=== PATIENT | male | born 1945 | race Caucasian/White ===

== ENCOUNTER → 2016-04-28 | Outpatient (CLI) | payer OTHER, MEDICARE ==
[~2016-04-28] MED LIST: /PANT40TA; MIRALEX; PAIN325T
[2016-04-28 12:39] LABS: BASO % 0.8 % (0.0-1.0); EOS # 0.1 K/mm3 (0.0-0.50); EOS % 2.2 % (0.0-3.0); LARGE UNSTAINED CELL # 0.1 K/mm3 (0.0-0.4); LARGE UNSTAINED CELL % 2.6 % (0.0-4.0); LYMPH # 1.4 K/mm3 (1.5-4.5); LYMPH % 26.1 % (24.0-44.0); MEAN CORPUSCULAR HEMOGLOBIN 30.8 pg (27.0-33.0); MEAN CORPUSCULAR VOLUME 87.9 fl (80.0-96.0); MONO # 0.3 K/mm3 (0.0-0.8); MONO % 5.3 % (0.0-5.0); NEUTROPHILS # 3.4 K/mm3 (1.8-7.7); NEUTROPHILS % 62.9 % (36.0-66.0); PLATELET COUNT, AUTOMATED 169 k/mm3 (150-450); RED CELL DISTRIBUTION WIDTH 13.2 % (11.5-14.5); WHITE BLOOD COUNT 5.4 K/mm3 (4.0-10.0)
[2016-04-28 13:17] LABS: ALBUMIN 3.8 GM/DL (3.2-5.2); ALBUMIN/GLOBULIN RATIO 1.23 (1.00-1.93); ALKALINE PHOSPHATASE 78 U/L (45-117); ALT/SGPT 17 U/L (12-78); ANION GAP 9 MEQ/L (8-16); AST/SGOT 14 U/L (15-37); BILIRUBIN,TOTAL 0.7 MG/DL (0.2-1.0); BLOOD UREA NITROGEN 12 MG/DL (7-18); CALCIUM LEVEL 9.2 MG/DL (8.8-10.2); CARBON DIOXIDE LEVEL 29 MEQ/L (21-32); CHLORIDE LEVEL 106 MEQ/L (98-107); CHOLESTEROL LEVEL 210 MG/DL (<200); CREATININE FOR GFR 1.15 MG/DL (0.70-1.30); GLOMERULAR FILTRATION RATE > 60.0 (>49); GLUCOSE, FASTING 103 MG/DL (80-110); POTASSIUM SERUM 4.4 MEQ/L (3.5-5.1); SODIUM LEVEL 144 MEQ/L (136-145); TOTAL PROTEIN 6.9 GM/DL (6.4-8.2); TRIGLYCERIDES LEVEL 104 MG/DL (<150)
== END ==
LOC: M WUC 08:25
PROVIDERS: ATTEND Physician Assistant Medical
DX: E78.4 Other hyperlipidemia (principal); R73.01 Impaired fasting glucose

== ENCOUNTER → 2016-06-16 | Outpatient (CLI) | payer OTHER, MEDICARE ==
[~2016-06-16] MED LIST changes: +CITA20TA4 PO; +GABA-283 PO; +LIDOCAINE 2% INJ 100 MG/5 ML SDV (FOR ANES.) As Ordered ONE; +NAME28CA PO; +NS 1,000 ML IV SCH; +PROPOFOL 500 MG/50 ML VIAL As Ordered ONE
--- NOTE | 2016-06-16 10:22 | ROOR ---
Patient Name: Yoni Zamudio Procedure Date: 06/16/2016 10:06 AM Date of : 1945 Age: 70 Room: [facility] Gender: Male Note Status: Finalized Procedure: Upper GI endoscopy Indications: Dysphagia, Abdominal bloating, Eructation Providers: Forrest Kyle MD Referring MD: LALO Ospina Requesting Provider: Medicines: Monitored Anesthesia Care Complications: No immediate complications. Procedure: Pre-Anesthesia Assessment: - The heart rate, respiratory rate, oxygen saturations, blood pressure, adequacy of pulmonary ventilation, and response to care were monitored throughout the procedure. The Endoscope was introduced through the mouth, and advanced to the second part of duodenum. The upper GI endoscopy was accomplished without difficulty. The patient tolerated the procedure well. Findings: The Z-line was regular and was found 40 cm from the incisors. A small hiatal hernia was present. A large amount of food (residue) was found on the greater curvature of the stomach. The exam was otherwise without abnormality. The exam of the duodenum was otherwise normal. Impression: - Z-line regular, 40 cm from the incisors. - Small hiatal hernia. - A large amount of food (residue) in the stomach. - The examination was otherwise normal. - No specimens collected. - The examination was otherwise normal. Recommendation: - Patient has a contact number available for emergencies. The signs and symptoms of potential delayed complications were discussed with the patient. Return to normal activities tomorrow. Written discharge instructions were provided to the patient. - Low fiber diet. - Discharge patient to home. - Follow an antireflux regimen. - Continue present medications. - Return to referring physician. - The findings and recommendations were discussed with the patient's family. Forrest Kyle MD Forrest Kyle MD 06/16/2016 10:21:52 AM This report has been signed electronically. Number of Addenda: 0 Note Initiated On: 06/16/2016 10:06 AM Estimated Blood Loss: Estimated blood loss: none.
[2016-06-16 10:52] VITALS: BP 117/78
== END | disposition home or self-care (01) ==
LOC: M OPP 09:27
PROVIDERS: ATTEND Internal Medicine Gastroenterology
DX: R13.10 Dysphagia, unspecified (principal); K44.9 Diaphragmatic hernia without obstruction or gangrene; R14.0 Abdominal distension (gaseous); R14.2 Eructation; R12 Heartburn; K21.9 Gastro-esophageal reflux disease without esophagitis; Z79.899 Other long term (current) drug therapy

== ENCOUNTER → 2016-08-31 | Day surgery (SDC) | payer OTHER ==
[~2016-08-31] VITALS: Ht 182.9 cm; Wt 90.7 kg
[~2016-08-31] MED LIST changes: +ACETAMINOPHEN 325 MG TAB PO PRN; +AcetaZOLAMIDE 500 MG ER CAP PO ONE; +BSS with VANC/TOB/EPI for EYE CASES IR ONE; +CYCLOPENTOLATE 2% OPHTH SOLN 2ML BTL As Ordered ONE; +CYCLOPENTOLATE 2% OPHTH SOLN 2ML BTL OS ONE; +D5W/0.2% SODIUM CHLORIDE 1,000 ML ONE; +D5W/0.2% SODIUM CHLORIDE 250 ML IV ONE; +GABA-282 PO; +HEALON DUET (HEALON 10MG/ML 0.55ML & HEALON ENDOCOAT 30MG/ML 0.85ML) As Ordered ONE; +KETOROLAC 0.5% OPHTH SOLN OS ONE; +LIDOCAINE 1% SDV 5 ML VIAL As Ordered ONE; -LIDOCAINE 2% INJ 100 MG/5 ML SDV (FOR ANES.) As Ordered ONE; +LIDOCAINE 4% INJ 5 ML AMP OU ONE; +LORA1TAB12 PO; +MEMA1TAB2 PO; +MIDAZOLAM INJ 2 MG/2 ML VIAL (J2250) As Ordered ONE; +MOXIFLOXACIN IN BSS 0.25MG/0.25ML INTRACAMERAL INJ (OR EYE ONLY)(J2280) As Ordered ONE; -NS 1,000 ML IV SCH; +OFLOXACIN 0.3 % (OCUFLOX) OPTH SOL 5ML As Ordered ONE; +OFLOXACIN 0.3 % (OCUFLOX) OPTH SOL 5ML OS ONE; +PANT40TA2 PO; +PHENYLEPHRINE 2.5% OPHTH SOL 2ML As Ordered ONE; +PHENYLEPHRINE 2.5% OPHTH SOL 2ML OS ONE; +POVIDONE-IODINE 5% OPHTH PREP SOL 30ML As Ordered ONE; +PROPARACAINE 0.5% OPHTH SOL 15ML OS PRN; -PROPOFOL 500 MG/50 ML VIAL As Ordered ONE; +TRIAMCINOLONE PRES FR 40 MG/ML 1ML(TRIESENCE)(OR EYE ONLY)(J3300 PER 1MG) As Ordered ONE; +TRIMETHOBENZAMIDE 300 MG CAP PO PRN; +TROPICAMIDE 1% OPHTH SOLN 2ML As Ordered ONE; +TROPICAMIDE 1% OPHTH SOLN 2ML OS ONE; +fentaNYL 100 MCG/2 ML INJECTION (J3010) As Ordered ONE
[2016-08-31 13:25] VITALS: BP 133/82
== END | disposition home or self-care (01) ==
LOC: M SDC 09:58
PROVIDERS: ATTEND Ophthalmology
DX: H26.9 Unspecified cataract (principal); K21.9 Gastro-esophageal reflux disease without esophagitis; F41.9 Anxiety disorder, unspecified; Z79.899 Other long term (current) drug therapy
CPT/HCPCS: 66984; 67515; J2250; J2280; J3010; J3300; V2632

== ENCOUNTER → 2016-09-20 | Day surgery (SDC) | payer OTHER ==
[~2016-09-20] VITALS: Ht 182.9 cm; Wt 91.0 kg
[~2016-09-20] MED LIST changes: -CYCLOPENTOLATE 2% OPHTH SOLN 2ML BTL As Ordered ONE; +CYCLOPENTOLATE 2% OPHTH SOLN 2ML BTL OD ONE; -CYCLOPENTOLATE 2% OPHTH SOLN 2ML BTL OS ONE; -D5W/0.2% SODIUM CHLORIDE 1,000 ML ONE; -D5W/0.2% SODIUM CHLORIDE 250 ML IV ONE; +KETOROLAC 0.5% OPHTH SOLN OD ONE; -KETOROLAC 0.5% OPHTH SOLN OS ONE; +LR 500 ML IV ONE; -OFLOXACIN 0.3 % (OCUFLOX) OPTH SOL 5ML As Ordered ONE; +OFLOXACIN 0.3 % (OCUFLOX) OPTH SOL 5ML OD ONE; -OFLOXACIN 0.3 % (OCUFLOX) OPTH SOL 5ML OS ONE; -PHENYLEPHRINE 2.5% OPHTH SOL 2ML As Ordered ONE; +PHENYLEPHRINE 2.5% OPHTH SOL 2ML OD ONE; -PHENYLEPHRINE 2.5% OPHTH SOL 2ML OS ONE; +PROPARACAINE 0.5% OPHTH SOL 15ML OD PRN; -PROPARACAINE 0.5% OPHTH SOL 15ML OS PRN; -TROPICAMIDE 1% OPHTH SOLN 2ML As Ordered ONE; +TROPICAMIDE 1% OPHTH SOLN 2ML OD ONE; -TROPICAMIDE 1% OPHTH SOLN 2ML OS ONE
[2016-09-20 11:07] VITALS: BP 130/80
== END | disposition home or self-care (01) ==
LOC: M SDC 08:03
PROVIDERS: ATTEND Ophthalmology
DX: H25.9 Unspecified age-related cataract (principal); F41.9 Anxiety disorder, unspecified; F03.90 Unspecified dementia, unspecified severity, without behavioral disturbance, psychotic disturbance, mood disturbance, and anxiety; K21.9 Gastro-esophageal reflux disease without esophagitis; F32.9 Major depressive disorder, single episode, unspecified; Z79.899 Other long term (current) drug therapy
CPT/HCPCS: 66984; J2250; J2280; J3010; J3300; V2632

== ENCOUNTER → 2016-10-28 | Outpatient (REF) | payer OTHER ==
[~2016-10-28] MED LIST changes: -ACETAMINOPHEN 325 MG TAB PO PRN; -AcetaZOLAMIDE 500 MG ER CAP PO ONE; -BSS with VANC/TOB/EPI for EYE CASES IR ONE; -CYCLOPENTOLATE 2% OPHTH SOLN 2ML BTL OD ONE; -HEALON DUET (HEALON 10MG/ML 0.55ML & HEALON ENDOCOAT 30MG/ML 0.85ML) As Ordered ONE; -KETOROLAC 0.5% OPHTH SOLN OD ONE; -LIDOCAINE 1% SDV 5 ML VIAL As Ordered ONE; -LIDOCAINE 4% INJ 5 ML AMP OU ONE; -LR 500 ML IV ONE; +METO5TAB2; -MIDAZOLAM INJ 2 MG/2 ML VIAL (J2250) As Ordered ONE; -MOXIFLOXACIN IN BSS 0.25MG/0.25ML INTRACAMERAL INJ (OR EYE ONLY)(J2280) As Ordered ONE; +NAME28CA; -OFLOXACIN 0.3 % (OCUFLOX) OPTH SOL 5ML OD ONE; -PHENYLEPHRINE 2.5% OPHTH SOL 2ML OD ONE; -POVIDONE-IODINE 5% OPHTH PREP SOL 30ML As Ordered ONE; -PROPARACAINE 0.5% OPHTH SOL 15ML OD PRN; -TRIAMCINOLONE PRES FR 40 MG/ML 1ML(TRIESENCE)(OR EYE ONLY)(J3300 PER 1MG) As Ordered ONE; -TRIMETHOBENZAMIDE 300 MG CAP PO PRN; -TROPICAMIDE 1% OPHTH SOLN 2ML OD ONE; -fentaNYL 100 MCG/2 ML INJECTION (J3010) As Ordered ONE
== END ==
LOC: M SFHCADAM 11:03
PROVIDERS: ATTEND Physician Assistant Medical
DX: R19.5 Other fecal abnormalities (principal)

== ENCOUNTER 2017-01-22 12:56 | Emergency (ER) | payer OTHER ==
[~2017-01-22 12:56] MED LIST changes: -METO5TAB2; -NAME28CA
[2017-01-22] MEDS ORDERED: METO5TAB2 (13:19)
[2017-01-22] MEDS ORDERED: NAME28CA (13:19)
[2017-01-22 15:53] LABS: BASO % 0.4 % (0.0-1.0); EOS # 0.1 10^3/uL (0.0-0.50); EOS % 0.7 % (0.0-3.0); IMMATURE GRANULOCYTE % 0.3 % (0-0); LYMPH # 1.3 10^3/uL (1.5-4.5); LYMPH % 19.7 % (24.0-44.0); MEAN CORPUSCULAR HEMOGLOBIN 31.1 pg (27.0-33.0); MEAN CORPUSCULAR HGB CONC 35.6 g/dl (32.0-36.5); MEAN CORPUSCULAR VOLUME 87.2 fl (80.0-96.0); MONO # 0.4 10^3/uL (0.0-0.8); MONO % 5.2 % (0.0-5.0); NEUTROPHILS # 4.9 10^3/uL (1.8-7.7); NEUTROPHILS % 73.7 % (36.0-66.0); PLATELET COUNT, AUTOMATED 170 10^3/uL (150-450); RED CELL DISTRIBUTION WIDTH 13.4 % (11.5-14.5); WHITE BLOOD COUNT 6.7 10^3/uL (4.0-10.0)
[2017-01-22 16:05] LABS: METHADONE URINE NEGATIVE (NEGATIVE)
[2017-01-22 16:06] LABS: ALBUMIN 3.7 GM/DL (3.2-5.2); ALBUMIN/GLOBULIN RATIO 1.32 (1.00-1.93); ALKALINE PHOSPHATASE 56 U/L (45-117); ALT/SGPT 20 U/L (12-78); ANION GAP 7 MEQ/L (8-16); AST/SGOT 15 U/L (15-37); BILIRUBIN,DIRECT 0.2 MG/DL (0.0-0.2); BILIRUBIN,TOTAL 0.7 MG/DL (0.2-1.0); BLOOD UREA NITROGEN 15 MG/DL (7-18); CARBON DIOXIDE LEVEL 27 MEQ/L (21-32); CHLORIDE LEVEL 108 MEQ/L (98-107); CREATININE FOR GFR 1.03 MG/DL (0.70-1.30); GLOMERULAR FILTRATION RATE > 60.0 (>49); GLUCOSE, FASTING 151 MG/DL (80-110); POTASSIUM SERUM 3.4 MEQ/L (3.5-5.1); SODIUM LEVEL 142 MEQ/L (136-145); TOTAL PROTEIN 6.5 GM/DL (6.4-8.2)
[2017-01-22 16:08] LABS: CALCIUM OXALATE CRYSTALS SMALL
[2017-01-22 16:39] VITALS: BP 185/108
--- NOTE | 2017-01-23 08:07 | ECGEPIP ---
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
== END 2017-01-22 16:43 | disposition home or self-care (01) ==
LOC: M ED 12:56
DX: F03.90 Unspecified dementia, unspecified severity, without behavioral disturbance, psychotic disturbance, mood disturbance, and anxiety (principal); R94.31 Abnormal electrocardiogram [ECG] [EKG]; F41.9 Anxiety disorder, unspecified; F32.9 Major depressive disorder, single episode, unspecified; R51 Headache; Z79.899 Other long term (current) drug therapy
CPT/HCPCS: 80048; 80076; 80307; 81001; 85025; 93005; 93041; 99285; G0480

== ENCOUNTER → 2017-02-28 | Outpatient (CLI) | payer OTHER ==
[~2017-02-28] MED LIST changes: +METO5TAB2; +NAME28CA
--- NOTE | 2017-02-28 16:14 | REP ---
Clinical: Pain and paresthesia. Technique: Internal rotation, external rotation, and Y view of the right and left shoulder. Findings: Symmetric bilateral moderate arthritic changes at the acromioclavicular joints noted. Findings include cortical irregularity and chondrocalcinosis at the acromioclavicular joints. The glenohumeral joints appear relatively stable and normal for age. The subacromial space is normal bilaterally. Findings to suggest old left mid clavicular shaft fracture. 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 Old left clavicle fracture. Signed by Tobias Alva MD 02/28/2017 04:05 P
--- NOTE | 2017-02-28 16:17 | REP ---
Clinical: Pain and paresthesia. Technique: AP, lateral, flexion/extension, bilateral oblique, and open-mouth views of the cervical spine. Comparison: 12/01/2004. Findings: Moderate multilevel degenerative changes are appreciated including advanced focal changes at the C4-5 level. Findings include anterior osteophytes with endplate sclerosis and disc space narrowing. Alignment is maintained. There is no evidence for acute fracture / compression injury or subluxation. Left C4-5 foraminal narrowing cannot be excluded. Open mouth view demonstrates normal C1-C2 articulation and odontoid process. Impression: Moderate multilevel degenerative changes with focal advanced changes at the C4-5 level. Signed by Tobias Alva MD 02/28/2017 04:08 P
== END ==
LOC: M ADAMS 14:49
PROVIDERS: ATTEND Physician Assistant Medical
DX: R20.2 Paresthesia of skin (principal); M19.011 Primary osteoarthritis, right shoulder; M19.012 Primary osteoarthritis, left shoulder; M25.78 Osteophyte, vertebrae

== ENCOUNTER 2017-06-02 13:01 | Emergency (ER) | payer OTHER | END 2017-06-02 16:32 | disposition left against medical advice (07) | LOC: M ED 13:01 | DX: Z53.21 Procedure and treatment not carried out due to patient leaving prior to being seen by health care provider (principal) ==

== ENCOUNTER → 2017-08-05 | Outpatient (REF) | payer OTHER ==
[2017-08-05 19:18] LABS: BASO # 0.1 10^3/uL (0.0-0.2); BASO % 0.8 % (0.0-1.0); EOS # 0.1 10^3/uL (0.0-0.50); EOS % 0.9 % (0.0-3.0); HEMATOCRIT 39.6 % (42.0-52.0); HEMOGLOBIN 13.9 g/dl (13.5-17.5); IMMATURE GRANULOCYTE % 0.2 % (0-3.0); LYMPH # 2.1 10^3/uL (1.5-4.5); LYMPH % 32.2 % (24.0-44.0); MEAN CORPUSCULAR HEMOGLOBIN 30.9 pg (27.0-33.0); MEAN CORPUSCULAR HGB CONC 35.1 g/dl (32.0-36.5); MONO # 0.4 10^3/uL (0.0-0.8); MONO % 6.3 % (0.0-5.0); NEUTROPHILS # 3.9 10^3/uL (1.8-7.7); NEUTROPHILS % 59.6 % (36.0-66.0); PLATELET COUNT, AUTOMATED 192 10^3/uL (150-450); RED CELL DISTRIBUTION WIDTH 13.7 % (11.5-14.5); WHITE BLOOD COUNT 6.5 10^3/uL (4.0-10.0)
[2017-08-05 19:41] LABS: ALBUMIN 3.8 GM/DL (3.2-5.2); ALBUMIN/GLOBULIN RATIO 1.15 (1.00-1.93); ALKALINE PHOSPHATASE 62 U/L (45-117); ALT/SGPT 19 U/L (12-78); ANION GAP 7 MEQ/L (8-16); AST/SGOT 16 U/L (7-37); BILIRUBIN,TOTAL 0.6 MG/DL (0.2-1.0); BLOOD UREA NITROGEN 19 MG/DL (7-18); CARBON DIOXIDE LEVEL 28 MEQ/L (21-32); CHLORIDE LEVEL 109 MEQ/L (98-107); CREATININE FOR GFR 1.15 MG/DL (0.70-1.30); GLOMERULAR FILTRATION RATE > 60.0 (>49); GLUCOSE, FASTING 93 MG/DL (70-100); SODIUM LEVEL 144 MEQ/L (136-145); TOTAL PROTEIN 7.1 GM/DL (6.4-8.2)
== END ==
LOC: M SFHCADAM 13:41
DX: R53.83 Other fatigue (principal)
CPT/HCPCS: 80053

== ENCOUNTER 2017-08-23 12:05 | Emergency (ER) | payer OTHER | END 2017-08-23 14:04 | disposition home or self-care (01) | LOC: M ED 12:05 | DX: F03.90 Unspecified dementia, unspecified severity, without behavioral disturbance, psychotic disturbance, mood disturbance, and anxiety (principal); K21.9 Gastro-esophageal reflux disease without esophagitis; N40.0 Benign prostatic hyperplasia without lower urinary tract symptoms; N52.9 Male erectile dysfunction, unspecified | CPT/HCPCS: 99283 ==

== ENCOUNTER 2017-09-17 18:32 | Emergency (ER) | payer OTHER | END 2017-09-17 19:30 | disposition left against medical advice (07) | LOC: M ED 18:32 | DX: Z53.21 Procedure and treatment not carried out due to patient leaving prior to being seen by health care provider (principal) ==

== ENCOUNTER → 2017-09-19 | Outpatient (REF) | payer OTHER ==
[2017-09-19 19:25] LABS: BASO % 0.6 % (0.0-1.0); EOS # 0.1 10^3/uL (0.0-0.50); HEMATOCRIT 41.9 % (42.0-52.0); HEMOGLOBIN 14.8 g/dl (13.5-17.5); IMMATURE GRANULOCYTE % 0.1 % (0-3.0); LYMPH % 29.6 % (24.0-44.0); MEAN CORPUSCULAR HEMOGLOBIN 30.4 pg (27.0-33.0); MEAN CORPUSCULAR HGB CONC 35.3 g/dl (32.0-36.5); MONO # 0.4 10^3/uL (0.0-0.8); MONO % 5.8 % (0.0-5.0); NEUTROPHILS # 4.3 10^3/uL (1.8-7.7); NEUTROPHILS % 62.9 % (36.0-66.0); PLATELET COUNT, AUTOMATED 184 10^3/uL (150-450); RED BLOOD COUNT 4.87 10^6/uL (4.30-6.10); RED CELL DISTRIBUTION WIDTH 13.3 % (11.5-14.5); WHITE BLOOD COUNT 6.9 10^3/uL (4.0-10.0)
[2017-09-19 19:31] LABS: ANION GAP 9 MEQ/L (8-16); BLOOD UREA NITROGEN 17 MG/DL (7-18); CALCIUM LEVEL 9.5 MG/DL (8.8-10.2); CARBON DIOXIDE LEVEL 28 MEQ/L (21-32); CHLORIDE LEVEL 107 MEQ/L (98-107); GLOMERULAR FILTRATION RATE > 60.0 (>49); GLUCOSE, FASTING 93 MG/DL (70-100); POTASSIUM SERUM 3.8 MEQ/L (3.5-5.1); SODIUM LEVEL 144 MEQ/L (136-145)
== END ==
LOC: M SFHCADAM 16:41
DX: R19.5 Other fecal abnormalities (principal)
CPT/HCPCS: 80048

== ENCOUNTER → 2017-10-12 | Outpatient (CLI) | payer OTHER ==
[2017-10-12 20:02] LABS: BASO # 0.1 10^3/uL (0.0-0.2); EOS # 0.1 10^3/uL (0.0-0.50); EOS % 1.8 % (0.0-3.0); HEMATOCRIT 42.4 % (42.0-52.0); HEMOGLOBIN 15.2 g/dl (13.5-17.5); IMMATURE GRANULOCYTE % 0.3 % (0-3.0); LYMPH # 1.8 10^3/uL (1.5-4.5); LYMPH % 29.5 % (24.0-44.0); MEAN CORPUSCULAR HEMOGLOBIN 30.5 pg (27.0-33.0); MEAN CORPUSCULAR HGB CONC 35.8 g/dl (32.0-36.5); MEAN CORPUSCULAR VOLUME 85.1 fl (80.0-96.0); MONO # 0.4 10^3/uL (0.0-0.8); MONO % 5.7 % (0.0-5.0); NEUTROPHILS # 3.8 10^3/uL (1.8-7.7); NEUTROPHILS % 61.7 % (36.0-66.0); PLATELET COUNT, AUTOMATED 186 10^3/uL (150-450); RED BLOOD COUNT 4.98 10^6/uL (4.30-6.10); RED CELL DISTRIBUTION WIDTH 13.2 % (11.5-14.5); WHITE BLOOD COUNT 6.1 10^3/uL (4.0-10.0)
[2017-10-12 20:29] LABS: ERYTHROCYTE SEDIMENTATION RATE 7 mm/hr (0-20)
[2017-10-12 22:33] LABS: ALBUMIN 3.8 GM/DL (3.2-5.2); ALBUMIN/GLOBULIN RATIO 1.15 (1.00-1.93); ALKALINE PHOSPHATASE 69 U/L (45-117); ALT/SGPT 16 U/L (12-78); AMYLASE 62 U/L (25-115); ANION GAP 7 MEQ/L (8-16); AST/SGOT 12 U/L (7-37); BILIRUBIN,TOTAL 0.9 MG/DL (0.2-1.0); BLOOD UREA NITROGEN 15 MG/DL (7-18); C REACTIVE PROTEIN QUANTITATIV < 0.30 MG/DL (0.00-0.30); CALCIUM LEVEL 8.9 MG/DL (8.8-10.2); CARBON DIOXIDE LEVEL 27 MEQ/L (21-32); CHLORIDE LEVEL 108 MEQ/L (98-107); CREATININE FOR GFR 1.07 MG/DL (0.70-1.30); GLOMERULAR FILTRATION RATE > 60.0 (>49); GLUCOSE, FASTING 110 MG/DL (70-100); LIPASE 143 U/L (73-393); POTASSIUM SERUM 3.8 MEQ/L (3.5-5.1); SODIUM LEVEL 142 MEQ/L (136-145); THYROXINE (T4) 8.6 UG/DL (4.5-12.0); TOTAL PROTEIN 7.1 GM/DL (6.4-8.2)
[2017-10-14 16:20] LABS: TISSUE TRANSGLUTAMINASE IgA <2 U/mL (0-3); TISSUE TRANSGLUTAMINASE IgG <2 U/mL (0-5); UNITSIGA FOR GLIADIN IGA 5 units (0-19); UNITSIGG FOR GLIADIN IGG 2 units (0-19)
== END ==
LOC: M ADAMS 13:57
DX: K21.9 Gastro-esophageal reflux disease without esophagitis (principal)
CPT/HCPCS: 82150

== ENCOUNTER → 2017-11-02 | Outpatient (REF) | payer OTHER ==
[2017-11-12 00:06] LABS: CALPROTECTIN STOOL <16 ug/g (0-120)
== END ==
LOC: M LAB REF 09:03
DX: K21.9 Gastro-esophageal reflux disease without esophagitis (principal)
CPT/HCPCS: 83993

== ENCOUNTER → 2018-01-18 | Outpatient (CLI) | payer OTHER | LOC: M ADAMS 16:26 | DX: R07.89 Other chest pain (principal) | CPT/HCPCS: 71046; 82550 ==

== ENCOUNTER → 2018-01-18 | Outpatient (REF) | payer OTHER ==
[2018-01-18 20:18] LABS: BASO % 0.7 % (0.0-1.0); EOS # 0.1 10^3/uL (0.0-0.50); EOS % 2.2 % (0.0-3.0); HEMATOCRIT 43.2 % (42.0-52.0); HEMOGLOBIN 14.9 g/dl (13.5-17.5); IMMATURE GRANULOCYTE % 0.2 % (0-3.0); LYMPH % 34.9 % (24.0-44.0); MEAN CORPUSCULAR HEMOGLOBIN 30.8 pg (27.0-33.0); MEAN CORPUSCULAR HGB CONC 34.5 g/dl (32.0-36.5); MEAN CORPUSCULAR VOLUME 89.4 fl (80.0-96.0); MONO # 0.5 10^3/uL (0.0-0.8); MONO % 8.2 % (0.0-5.0); NEUTROPHILS % 53.8 % (36.0-66.0); PLATELET COUNT, AUTOMATED 196 10^3/uL (150-450); RED BLOOD COUNT 4.83 10^6/uL (4.30-6.10); RED CELL DISTRIBUTION WIDTH 13.2 % (11.5-14.5); WHITE BLOOD COUNT 5.6 10^3/uL (4.0-10.0)
[2018-01-18 20:41] LABS: ALBUMIN 3.8 GM/DL (3.2-5.2); ALBUMIN/GLOBULIN RATIO 1.15 (1.00-1.93); ALKALINE PHOSPHATASE 67 U/L (45-117); ALT/SGPT 17 U/L (12-78); ANION GAP 5 MEQ/L (8-16); AST/SGOT 12 U/L (7-37); BILIRUBIN,TOTAL 0.6 MG/DL (0.2-1.0); BLOOD UREA NITROGEN 17 MG/DL (7-18); C REACTIVE PROTEIN QUANTITATIV < 0.30 MG/DL (0.00-0.30); CALCIUM LEVEL 9.1 MG/DL (8.8-10.2); CARBON DIOXIDE LEVEL 29 MEQ/L (21-32); CHLORIDE LEVEL 108 MEQ/L (98-107); CK-MB VALUE MASS < 1.0 NG/ML (<3.6); CPK CREATINE PHOSPHOKINASE 64 U/L (39-308); CREATININE FOR GFR 1.12 MG/DL (0.70-1.30); GLOMERULAR FILTRATION RATE > 60.0 (>42); GLUCOSE, FASTING 90 MG/DL (70-100); MB/CK RELATIVE INDEX 1.56 (< OR =4); POTASSIUM SERUM 3.9 MEQ/L (3.5-5.1); SODIUM LEVEL 142 MEQ/L (136-145); TOTAL PROTEIN 7.1 GM/DL (6.4-8.2); TROPONIN I < 0.02 NG/ML (< 0.10)
[2018-01-18 20:46] LABS: ERYTHROCYTE SEDIMENTATION RATE 7 mm/hr (0-20)
[2018-01-18 21:13] LABS: D-DIMER QUANT < 270.0 ng/ml (<500)
== END ==
LOC: M SFHCADAM 16:24
DX: R07.89 Other chest pain (principal)
CPT/HCPCS: 82550

== ENCOUNTER → 2018-01-31 | Outpatient (REF) | payer OTHER ==
[2018-01-31 20:03] LABS: BLOOD UREA NITROGEN 11 MG/DL (7-18); CREATININE FOR GFR 1.01 MG/DL (0.70-1.30); GLOMERULAR FILTRATION RATE > 60.0 (>42); GLUCOSE, FASTING 95 MG/DL (70-100); SODIUM LEVEL 140 MEQ/L (136-145)
[2018-01-31 20:04] LABS: ALBUMIN/GLOBULIN RATIO 1.21 (1.00-1.93); ALKALINE PHOSPHATASE 66 U/L (45-117); ALT/SGPT 17 U/L (12-78); ANION GAP 6 MEQ/L (8-16); AST/SGOT 15 U/L (7-37); BILIRUBIN,TOTAL 0.9 MG/DL (0.2-1.0); CALCIUM LEVEL 9.4 MG/DL (8.8-10.2); CARBON DIOXIDE LEVEL 30 MEQ/L (21-32); CHLORIDE LEVEL 104 MEQ/L (98-107); CHOLESTEROL LEVEL 207 MG/DL (<200); CHOLESTEROL RISK RATIO 3.905 (<5); ESTIMATED AVERAGE GLUCOSE 94 MG/DL (60-110); HDL CHOLESTEROL 53 MG/DL (>40); HEMOGLOBIN A1c 4.9 %; LDL CHOLESTEROL 129 MG/DL (<100); NON-HDL-C 154 MG/DL; POTASSIUM SERUM 3.7 MEQ/L (3.5-5.1); TOTAL PROTEIN 7.3 GM/DL (6.4-8.2); TRIGLYCERIDES LEVEL 123 MG/DL (<150); TROPONIN I < 0.02 NG/ML (< 0.10)
== END ==
LOC: M SFHCADAM 17:45
DX: R07.89 Other chest pain (principal)
CPT/HCPCS: 84443

== ENCOUNTER → 2018-01-31 | Outpatient (REF) | payer OTHER ==
[2018-02-01 20:05] LABS: CREATININE, URINE 87.6 MG/DL; MALB URINE SIEMENS 7.1 MG/L
[2018-02-01 20:07] LABS: MAU/CREAT RATIO 8.1 MCG/MG (0.0-30.0)
== END ==
LOC: M SFHCADAM 02-01 18:55
DX: R73.01 Impaired fasting glucose (principal); E78.49 Other hyperlipidemia
CPT/HCPCS: 82043

== ENCOUNTER → 2018-04-03 | Outpatient (RCR) | payer OTHER ==
[~2018-04-03] MED LIST changes: -GABA-282 PO; -GABA-283 PO; +GABA-843 PO; +GABA-845 PO; -PANT40TA2 PO; +PANT40TA3 PO; +REGL10TA6 PO
== END ==
LOC: M OT 09:39
PROVIDERS: ATTEND Physician Assistant Medical
DX: M65.321 Trigger finger, right index finger (principal)
CPT/HCPCS: 97140; 97165; G8984; G8985

== ENCOUNTER 2018-04-19 10:00 | Outpatient (RCR) | payer MEDICARE, OTHER | END 2018-05-04 | LOC: M OT 10:00 | PROVIDERS: ATTEND Physician Assistant Medical | DX: M65.341 Trigger finger, right ring finger (principal) | CPT/HCPCS: 97110; 97140; G8985; G8986 ==

== ENCOUNTER → 2018-08-30 | Outpatient (REF) | payer MEDICARE ==
[~2018-08-30] MED LIST changes: -/PANT40TA; -CITA20TA4 PO; +CITA20TA6 PO; +PROT1TAB2
[2018-08-30 20:54] LABS: ALT/SGPT 10 U/L (12-78); BILIRUBIN,TOTAL 0.7 MG/DL (0.2-1.0); BLOOD UREA NITROGEN 15 MG/DL (7-18); CALCIUM LEVEL 9.9 MG/DL (8.8-10.2); CARBON DIOXIDE LEVEL 28 MEQ/L (21-32); CHLORIDE LEVEL 101 MEQ/L (98-107); CREATININE FOR GFR 1.21 MG/DL (0.70-1.30); GLOMERULAR FILTRATION RATE > 60.0 (>42); GLUCOSE, FASTING 143 MG/DL (70-100); POTASSIUM SERUM 4.1 MEQ/L (3.5-5.1); SODIUM LEVEL 137 MEQ/L (136-145); TOTAL PROTEIN 7.1 GM/DL (6.4-8.2)
[2018-08-30 20:56] LABS: BASO % 0.7 % (0.0-1.0); EOS # 0.1 10^3/uL (0.0-0.50); HEMATOCRIT 46.1 % (42.0-52.0); HEMOGLOBIN 15.5 g/dl (13.5-17.5); LYMPH # 1.2 10^3/uL (1.5-4.5); LYMPH % 20.1 % (24.0-44.0); MEAN CORPUSCULAR HEMOGLOBIN 30.2 pg (27.0-33.0); MEAN CORPUSCULAR HGB CONC 33.6 g/dl (32.0-36.5); MEAN CORPUSCULAR VOLUME 89.7 fl (80.0-96.0); MONO # 0.3 10^3/uL (0.0-0.8); MONO % 4.2 % (0.0-5.0); NEUTROPHILS # 4.3 10^3/uL (1.8-7.7); NEUTROPHILS % 72.7 % (36.0-66.0); PLATELET COUNT, AUTOMATED 189 10^3/uL (150-450); RED BLOOD COUNT 5.14 10^6/uL (4.30-6.10)
== END ==
LOC: M SFHCADAM 13:02
PROVIDERS: ATTEND Physician Assistant Medical
DX: E78.49 Other hyperlipidemia (principal); R73.01 Impaired fasting glucose

== ENCOUNTER → 2018-09-24 | Outpatient (CLI) | payer MEDICARE ==
--- NOTE | 2018-09-24 15:18 | REP ---
Acute abdominal series four views including PA chest, two supine views of the abdomen and single upright view of the abdomen: PA chest: Comparison is 08/18/2007. Lung roa are clear. Cardiac size is normal. The jenifer, mediastinum, skeletal structures are unremarkable. There is no free subdiaphragmatic air. Impression: Negative PA chest. Supine upright abdomen: Comparison is an upper gastrointestinal series dated 2009. The bowel gas pattern is normal. There are degenerative calcifications in the vas deferens. There is a small calcification projected over the lower pole of the left kidney. The skeletal and soft tissue structures otherwise are unremarkable. Impression: Normal bowel gas pattern. Calcifications as described. Electronically Signed by Jonny Hall MD 09/24/2018 03:09 P
[2018-09-24 18:27] LABS: ALBUMIN 4.2 GM/DL (3.2-5.2); ALT/SGPT 15 U/L (12-78); BILIRUBIN,TOTAL 0.9 MG/DL (0.2-1.0); BLOOD UREA NITROGEN 11 MG/DL (7-18); CALCIUM LEVEL 9.2 MG/DL (8.8-10.2); CARBON DIOXIDE LEVEL 27 MEQ/L (21-32); CHLORIDE LEVEL 103 MEQ/L (98-107); CREATININE FOR GFR 1.11 MG/DL (0.70-1.30); GLOMERULAR FILTRATION RATE > 60.0 (>42); GLUCOSE, FASTING 85 MG/DL (70-100); POTASSIUM SERUM 3.9 MEQ/L (3.5-5.1); SODIUM LEVEL 139 MEQ/L (136-145); TOTAL PROTEIN 7.4 GM/DL (6.4-8.2)
[2018-09-24 18:39] LABS: BASO % 0.5 % (0.0-1.0); EOS # 0.1 10^3/uL (0.0-0.50); EOS % 0.9 % (0.0-3.0); HEMATOCRIT 43.7 % (42.0-52.0); LYMPH # 1.2 10^3/uL (1.5-4.5); LYMPH % 21.3 % (24.0-44.0); MEAN CORPUSCULAR HEMOGLOBIN 29.3 pg (27.0-33.0); MEAN CORPUSCULAR HGB CONC 34.3 g/dl (32.0-36.5); MEAN CORPUSCULAR VOLUME 85.4 fl (80.0-96.0); MONO # 0.3 10^3/uL (0.0-0.8); MONO % 5.5 % (0.0-5.0); NEUTROPHILS # 3.9 10^3/uL (1.8-7.7); NEUTROPHILS % 71.6 % (36.0-66.0); PLATELET COUNT, AUTOMATED 186 10^3/uL (150-450); RED BLOOD COUNT 5.12 10^6/uL (4.30-6.10); WHITE BLOOD COUNT 5.5 10^3/uL (4.0-10.0)
== END ==
LOC: M WUC 11:53
PROVIDERS: ATTEND Physician Assistant
DX: N50.89 Other specified disorders of the male genital organs (principal); R19.7 Diarrhea, unspecified

== ENCOUNTER → 2019-02-01 | Outpatient (REF) | payer MEDICARE ==
[2019-02-01 19:42] LABS: BASO # 0.1 10^3/uL (0.0-0.2); BASO % 0.9 % (0.0-1.0); EOS # 0.1 10^3/uL (0.0-0.5); EOS % 1.8 % (0.0-3.0); HEMATOCRIT 43.2 % (42.0-52.0); HEMOGLOBIN 14.5 g/dl (13.5-17.5); LYMPH # 1.3 10^3/uL (1.5-5.0); LYMPH % 24.6 % (24.0-44.0); MEAN CORPUSCULAR HGB CONC 33.6 g/dl (32.0-36.5); MEAN CORPUSCULAR VOLUME 89.4 fl (80.0-96.0); MONO # 0.3 10^3/uL (0.0-0.8); MONO % 5.7 % (0.0-5.0); NEUTROPHILS # 3.6 10^3/uL (1.5-8.5); NEUTROPHILS % 66.6 % (36.0-66.0); PLATELET COUNT, AUTOMATED 154 10^3/uL (150-450); RED BLOOD COUNT 4.83 10^6/uL (4.30-6.10); WHITE BLOOD COUNT 5.4 10^3/uL (4.0-10.0)
[2019-02-01 19:59] LABS: HEMOGLOBIN A1c 4.8 %
[2019-02-01 20:21] LABS: ALBUMIN 3.6 GM/DL (3.2-5.2); ALT/SGPT 15 U/L (12-78); BILIRUBIN,TOTAL 0.7 MG/DL (0.2-1.0); BLOOD UREA NITROGEN 14 MG/DL (7-18); CALCIUM LEVEL 9.1 MG/DL (8.8-10.2); CARBON DIOXIDE LEVEL 29 MEQ/L (21-32); CHLORIDE LEVEL 105 MEQ/L (98-107); CHOLESTEROL LEVEL 211 MG/DL (<200); CHOLESTEROL RISK RATIO 4.489 (<5); CREATININE FOR GFR 1.13 MG/DL (0.70-1.30); GLOMERULAR FILTRATION RATE > 60.0 (>42); GLUCOSE, FASTING 97 MG/DL (70-100); HDL CHOLESTEROL 47 MG/DL (>40); LDL CHOLESTEROL 140 MG/DL (<100); NON-HDL-C 164 MG/DL; POTASSIUM SERUM 3.4 MEQ/L (3.5-5.1); SODIUM LEVEL 140 MEQ/L (136-145); TOTAL PROTEIN 6.5 GM/DL (6.4-8.2); TRIGLYCERIDES LEVEL 118 MG/DL (<150)
== END ==
LOC: M SFHCADAM 15:55
PROVIDERS: ATTEND Physician Assistant Medical
DX: R73.01 Impaired fasting glucose (principal); F32.9 Major depressive disorder, single episode, unspecified; E78.2 Mixed hyperlipidemia

== ENCOUNTER → 2019-02-06 | Outpatient (REF) | payer MEDICARE ==
[2019-02-06 20:34] LABS: MAU/CREAT RATIO 5.5 MCG/MG (0.0-30.0)
== END ==
LOC: M SFHCADAM 17:37
PROVIDERS: ATTEND Physician Assistant Medical
DX: R73.01 Impaired fasting glucose (principal); F32.9 Major depressive disorder, single episode, unspecified; E78.2 Mixed hyperlipidemia

== ENCOUNTER 2019-12-03 13:48 | Emergency (ER) | payer MEDICARE ==
[~2019-12-03] VITALS: Ht 190.5 cm; Wt 85.6 kg
[~2019-12-03 13:48] MED LIST changes: -LORA1TAB12 PO; +LORA1TAB4 PO; +MEMA10TA19 PO; -MEMA1TAB2 PO; -NAME28CA; +PANT40TA29 PO; -PANT40TA3 PO
[2019-12-03] MEDS ORDERED: ESOM40CA35 PO (14:00)
[2019-12-03] MEDS ORDERED: DONE5TAB82 PO (14:00)
[2019-12-03] MEDS ORDERED: TRAZ-252 PO (14:00)
[2019-12-03 15:58] LABS: BASO % 0.5 % (0.0-1.0); EOS # 0.1 10^3/uL (0.0-0.5); EOS % 1.1 % (0.0-3.0); HEMATOCRIT 38.7 % (42.0-52.0); HEMOGLOBIN 13.8 g/dl (13.5-17.5); LYMPH # 1.1 10^3/uL (1.5-5.0); LYMPH % 17.9 % (24.0-44.0); MEAN CORPUSCULAR HEMOGLOBIN 30.6 pg (27.0-33.0); MEAN CORPUSCULAR HGB CONC 35.7 g/dl (32.0-36.5); MEAN CORPUSCULAR VOLUME 85.8 fl (80.0-96.0); MONO # 0.3 10^3/uL (0.0-0.8); MONO % 4.1 % (0.0-5.0); NEUTROPHILS # 4.8 10^3/uL (1.5-8.5); NEUTROPHILS % 76.1 % (36.0-66.0); PLATELET COUNT, AUTOMATED 143 10^3/uL (150-450); RED BLOOD COUNT 4.51 10^6/uL (4.30-6.10); WHITE BLOOD COUNT 6.3 10^3/uL (4.0-10.0)
[2019-12-03 16:26] LABS: ALBUMIN 3.7 GM/DL (3.2-5.2); ALT/SGPT 12 U/L (12-78); BILIRUBIN,DIRECT 0.3 MG/DL (0.0-0.2); BILIRUBIN,TOTAL 1.1 MG/DL (0.2-1.0); CK-MB VALUE MASS < 1.0 NG/ML (<3.6); CPK CREATINE PHOSPHOKINASE 71 U/L (39-308); LIPASE 71 U/L (73-393); MB/CK RELATIVE INDEX 1.41 (< OR =4); TOTAL PROTEIN 6.9 GM/DL (6.4-8.2); TROPONIN I < 0.02 NG/ML (< 0.10)
[2019-12-03 18:13] VITALS: BP 124/83
--- NOTE | 2019-12-16 18:52 | ECGEPIP ---
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
--- NOTE | 2019-12-31 08:46 | REP ---
CHEST X-RAY CLINICAL: Shortness of breath. TECHNIQUE: PA and lateral. COMPARISON: 01/18/2018. FINDINGS: Mediastinum and cardiac silhouette are within normal limits and stable. Lung roa demonstrate chronic stable interstitial changes and emphysematous disease. No acute consolidation, effusion, or pneumothorax. Skeletal structures are intact. IMPRESSION: Chronic stable changes. No acute cardiopulmonary process. MTDD
== END 2019-12-03 18:20 | disposition home or self-care (01) ==
LOC: M ED 13:48
DX: R06.02 Shortness of breath (principal); R10.13 Epigastric pain; K21.9 Gastro-esophageal reflux disease without esophagitis; F03.90 Unspecified dementia, unspecified severity, without behavioral disturbance, psychotic disturbance, mood disturbance, and anxiety; Z79.899 Other long term (current) drug therapy

== ENCOUNTER 2020-01-06 21:50 | Emergency (ER) | payer MEDICARE ==
[~2020-01-06] VITALS: Ht 188 cm; Wt 86.7 kg
[~2020-01-06 21:50] MED LIST changes: +DONE5TAB82 PO; +ESOM40CA35 PO; +TRAZ-252 PO
[2020-01-07] MEDS ORDERED: NS 1,000 ML IV ONE
[2020-01-07] MEDS ORDERED: LIDOCAINE 2% 5ML JELLY UROJET TOP ONE
[2020-01-07 00:52] LABS: BASO % 0.5 % (0.0-1.0); EOS # 0.1 10^3/uL (0.0-0.5); EOS % 1.7 % (0.0-3.0); HEMATOCRIT 36.9 % (42.0-52.0); HEMOGLOBIN 13.3 g/dl (13.5-17.5); LYMPH # 2.3 10^3/uL (1.5-5.0); LYMPH % 35.9 % (24.0-44.0); MEAN CORPUSCULAR HEMOGLOBIN 30.3 pg (27.0-33.0); MEAN CORPUSCULAR VOLUME 84.1 fl (80.0-96.0); MONO # 0.4 10^3/uL (0.0-0.8); MONO % 5.5 % (0.0-5.0); NEUTROPHILS # 3.6 10^3/uL (1.5-8.5); NEUTROPHILS % 56.1 % (36.0-66.0); PLATELET COUNT, AUTOMATED 154 10^3/uL (150-450); RED BLOOD COUNT 4.39 10^6/uL (4.30-6.10); WHITE BLOOD COUNT 6.4 10^3/uL (4.0-10.0)
--- NOTE | 2020-01-07 01:03 | REPVR ---
PROCEDURE INFORMATION: Exam: CT Abdomen And Pelvis Without Contrast Exam date and time: 01/07/2020 12:51 AM Age: 74 years old Clinical indication: Abdominal pain; Additional info: Urinary retention TECHNIQUE: Imaging protocol: Computed tomography of the abdomen and pelvis without contrast. Radiation optimization: All CT scans at this facility use at least one of these dose optimization techniques: automated exposure control; mA and/or kV adjustment per patient size (includes targeted exams where dose is matched to clinical indication); or iterative reconstruction. COMPARISON: Pelvis, limited US 01/09/2013 9:20 AM FINDINGS: Lungs: Slight bibasilar interstitial prominence. Mediastinal space: Minimal hiatal hernia. Liver: Normal. No mass. Gallbladder and bile ducts: Normal. No calcified stones. No ductal dilation. Pancreas: Normal. No ductal dilation. Spleen: Normal. No splenomegaly. Adrenals: Normal. No mass. Kidneys and ureters: Small nonobstructing left renal calculus. Stomach and bowel: Unremarkable. No obstruction. No mucosal thickening. Appendix: A normal appendix is seen. Intraperitoneal space: Unremarkable. No free air. No significant fluid collection. Vasculature: There is mild calcification of the abdominal aorta with extension into the iliac arteries. Lymph nodes: Unremarkable. No enlarged lymph nodes. Urinary bladder: There is a Clay catheter in the bladder. Reproductive: Prominent calcification of the vas deferens. Bones/joints: Prominent wedge configuration of L1 which is fused to T12 consistent with chronic change. There is degenerative change of the lumbar spine. Soft tissues: Unremarkable. IMPRESSION: 1. Small nonobstructing left renal calculus. 2. Clay catheter in the bladder. 3. There is calcification of the vas deferens consistent with diabetes. 4. Chronic wedge compression of L1 which is fused to T12. 5. Otherwise negative CT abdomen/pelvis. Electronically signed by: Gilberto Donahue On 01/07/2020 01:03:30 AM
[2020-01-07] MEDS ORDERED: FLOM0.4C39 PO (01:12)
[2020-01-07 01:55] VITALS: BP 162/82
[2020-01-08] MEDS ORDERED: FLOM0.4C39 PO (22:15)
[2020-01-08] MEDS ORDERED: DONE10TA90 PO (22:15)
== END 2020-01-07 01:57 | disposition home or self-care (01) ==
LOC: M ED 21:50
DX: R33.9 Retention of urine, unspecified (principal); N20.0 Calculus of kidney; K21.9 Gastro-esophageal reflux disease without esophagitis; F03.90 Unspecified dementia, unspecified severity, without behavioral disturbance, psychotic disturbance, mood disturbance, and anxiety; Z79.899 Other long term (current) drug therapy

== ENCOUNTER 2020-01-08 14:44 | Inpatient (IN) | payer MEDICARE ==
[~2020-01-08] VITALS: Ht 188 cm; Wt 83.4 kg
[~2020-01-08 14:44] MED LIST changes: +FLOM0.4C39 PO
[2020-01-08] MEDS ORDERED: NS 1,000 ML IV ONE (16:30)
[2020-01-08 17:00] LABS: BASO % 0.5 % (0.0-1.0); EOS # 0.1 10^3/uL (0.0-0.5); EOS % 0.8 % (0.0-3.0); HEMOGLOBIN 13.4 g/dl (13.5-17.5); LYMPH # 1.3 10^3/uL (1.5-5.0); MEAN CORPUSCULAR HEMOGLOBIN 30.1 pg (27.0-33.0); MEAN CORPUSCULAR HGB CONC 35.3 g/dl (32.0-36.5); MEAN CORPUSCULAR VOLUME 85.4 fl (80.0-96.0); MONO # 0.4 10^3/uL (0.0-0.8); MONO % 4.3 % (0.0-5.0); NEUTROPHILS # 6.7 10^3/uL (1.5-8.5); PLATELET COUNT, AUTOMATED 154 10^3/uL (150-450); RED BLOOD COUNT 4.45 10^6/uL (4.30-6.10); WHITE BLOOD COUNT 8.4 10^3/uL (4.0-10.0)
[2020-01-08 17:30] LABS: ALBUMIN 3.6 GM/DL (3.2-5.2); ALT/SGPT 13 U/L (12-78); BILIRUBIN,DIRECT 0.5 MG/DL (0.0-0.2); BILIRUBIN,TOTAL 1.5 MG/DL (0.2-1.0); LIPASE 70 U/L (73-393); TOTAL PROTEIN 6.7 GM/DL (6.4-8.2)
[2020-01-08] MEDS ORDERED: MORPHINE 4 MG/ML 1ML VIAL/SYRINGE (J2270) IV ONE ×2 (18:15→21:45)
--- NOTE | 2020-01-08 18:26 | REPVR ---
PROCEDURE INFORMATION: Exam: XR Chest, 2 Views Exam date and time: 01/08/2020 5:44 PM Age: 74 years old Clinical indication: Shortness of breath; Additional info: SOB, tachypnea TECHNIQUE: Imaging protocol: XR of the chest Views: 2 views. COMPARISON: CR Chest, 2 view PA, Lat 12/03/2019 4:41 PM FINDINGS: Lungs: No focal lung consolidation. Pleural space: No pleural effusion or pneumothorax. Heart/Mediastinum: Borderline cardiomegaly and atherosclerotic calcification of the thoracic aorta. Bones/joints: No acute skeletal findings. IMPRESSION: No acute findings. Electronically signed by: Aleah Villeda On 01/08/2020 18:25:29 PM
[2020-01-08] MEDS ORDERED: ISOVUE-370 76% 100ML VIAL As Ordered ONE (19:10)
--- NOTE | 2020-01-08 20:03 | REPVR ---
PROCEDURE INFORMATION: Exam: CT Head Without Contrast Exam date and time: 01/08/2020 7:27 PM Age: 74 years old Clinical indication: Altered mental status/memory loss; Confusion or disorientation; Additional info: Agitation, confusion, SOB TECHNIQUE: Imaging protocol: Computed tomography of the head without contrast. Radiation optimization: All CT scans at this facility use at least one of these dose optimization techniques: automated exposure control; mA and/or kV adjustment per patient size (includes targeted exams where dose is matched to clinical indication); or iterative reconstruction. COMPARISON: No relevant prior studies available. FINDINGS: Brain: There is no acute cortical infarction, intracranial hemorrhage or mass. Cerebral ventricles: The ventricles appear enlarged, but not out of proportion to the degree of parenchymal volume loss. Bones/joints: Unremarkable. No acute fracture. Paranasal sinuses: Visualized sinuses are unremarkable. No fluid levels. Mastoid air cells: Visualized mastoid air cells are well aerated. Soft tissues: Unremarkable. IMPRESSION: No acute intracranial findings. Electronically signed by: Aleah Villeda On 01/08/2020 20:02:34 PM
--- NOTE | 2020-01-08 20:13 | REPVR ---
PROCEDURE INFORMATION: Exam: CT Abdomen And Pelvis With Contrast Exam date and time: 01/08/2020 7:27 PM Age: 74 years old Clinical indication: Other: Confusion; Additional info: Agitation, confusion, SOB TECHNIQUE: Imaging protocol: Computed tomography of the abdomen and pelvis with intravenous contrast. Radiation optimization: All CT scans at this facility use at least one of these dose optimization techniques: automated exposure control; mA and/or kV adjustment per patient size (includes targeted exams where dose is matched to clinical indication); or iterative reconstruction. Contrast material: ISOVUE 370; Contrast volume: 100 ml; Contrast route: INTRAVENOUS (IV); COMPARISON: CT ABD PELVIS W/O CONTRAST 01/07/2020 12:37 AM FINDINGS: Limitations: Patient motion which obscures detail. Lungs: The lung bases are unremarkable. Liver: There are no focal liver lesions. Gallbladder and bile ducts: The gallbladder is unremarkable. Pancreas: No definite abnormalities are seen within the pancreas. Spleen: The spleen is normal. Adrenals: The adrenal glands are unremarkable. Kidneys and ureters: The kidneys are unremarkable other than a nonobstructing 7 mm left renal calculus. Stomach and bowel: There is no evidence of intestinal obstruction. There appears to be thickening of the sigmoid colonic wall. Due to patient motion I cannot determine if there is adjacent soft tissue stranding however no pericolonic inflammation was apparent on yesterday's examination. Appendix: No evidence of appendicitis. Intraperitoneal space: Unremarkable. No free air. No significant fluid collection. Vasculature: There is no evidence of an infrarenal abdominal aortic aneurysm. The arteries demonstrates diffuse marked atherosclerotic calcification. Lymph nodes: Unremarkable. No enlarged lymph nodes. Urinary bladder: Urinary bladder is not well assessed due to decompression associated with Clay catheter. Reproductive: Unremarkable as visualized. Bones/joints: There is a right femoral medullary eliud. Wedge compression deformity of L1 is again noted. Soft tissues: Unremarkable. IMPRESSION: No definite acute findings. Examination is limited due to patient motion. Electronically signed by: Aleah Villeda On 01/08/2020 20:12:46 PM
--- NOTE | 2020-01-08 20:20 | REPVR ---
PROCEDURE INFORMATION: Exam: CT Chest With Contrast Exam date and time: 01/08/2020 7:27 PM Age: 74 years old Clinical indication: Shortness of breath; Additional info: Agitation, confusion, SOB TECHNIQUE: Imaging protocol: Computed tomography of the chest with intravenous contrast. Radiation optimization: All CT scans at this facility use at least one of these dose optimization techniques: automated exposure control; mA and/or kV adjustment per patient size (includes targeted exams where dose is matched to clinical indication); or iterative reconstruction. Contrast material: ISOVUE 370; Contrast volume: 100 ml; Contrast route: INTRAVENOUS (IV); COMPARISON: CR Chest, 2 view PA, Lat 01/08/2020 5:34 PM FINDINGS: Lungs: No focal lung consolidation, mass. Pleural space: No pleural effusion or pneumothorax. Heart: Mild cardiomegaly without significant pericardial effusion. Aorta: The ascending aorta measures 3.9 cm AP which is upper limits of normal. There is no evidence of thoracic aortic dissection. Atherosclerosis. Lymph nodes: No mediastinal or hilar lymphadenopathy. Bones/joints: Due to patient motion bone detail is obscured. Wedge compression fractures again seen at the L1 level. Soft tissues: Unremarkable. IMPRESSION: No evidence of pneumonia or congestive heart failure. Electronically signed by: Aleah Villeda On 01/08/2020 20:20:00 PM
[2020-01-08 21:09] LABS: CK-MB VALUE MASS 1.7 NG/ML (<3.6); CPK CREATINE PHOSPHOKINASE 157 U/L (39-308); MB/CK RELATIVE INDEX 1.08 (< OR =4); TROPONIN I < 0.02 NG/ML (< 0.10)
[2020-01-08] MEDS ORDERED: DONE10TA90 PO (22:15)
[2020-01-08] MEDS ORDERED: FLOM0.4C39 PO (22:15)
[2020-01-09] MEDS ORDERED: MOM 30ML SUSPENSION UDC PO PRN (01:00)
[2020-01-09] MEDS ORDERED: LORazepam 2 MG/ML VIAL IV STA (01:01)
[2020-01-09] MEDS ORDERED: LORazepam 2 MG/ML VIAL IV PRN (01:15)
[2020-01-09] MEDS ORDERED: METOCLOPRAMIDE 10 MG TAB PO PRN (01:15)
--- NOTE | 2020-01-09 01:45 | HPEPDOC ---
[facility] Medical History & Physical Date of Admission Jan 09, 2020 Date of Service: Jan 09, 2020 History and Physical CHIEF COMPLAINT: Agitation HISTORY OF PRESENT ILLNESS: 74-year-old man past medical history of dementia, GERD, HTN. Brought in by his vb net programmer Estela who was at bedside. He was brought in by Estela due to increased agitation and anxiety at home. He was recently seen at [facility] 2 days ago for urinary retention where an indwelling Clay was placed. Per Estela patient has baseline dementia and difficulty communicating however she has noticed that over the past 2 days it has worsened and he is less communicative and unable to answer any questions currently. This is different from his baseline. She tells me when she is around his able to calm down more and be less agitated and anxious. Patient was able to answer my question regarding shortness of breath and said no he does not have shortness of breath at this time. This was the only answer was able to obtain from the patient. Estela tells me he can't sleep at night. CT chest done in the ED negative for signs of CHF or pneumonia. CT head in the ED negative for intracranial abnormalities. 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 REVIEW OF SYSTEMS: Unable to obtain review of systems due to patient's mental status and dementia. HOME MEDICATIONS: Please see below. PHYSICAL EXAMINATION: Constitutional: Awake but appears anxious and is in some distress ENT: Sclera are clear. Mucosa is moist. Respiratory: Lungs CTA bilaterally. Patient appears to be mildly tachypneic at times when he is anxious. When he looks at Estela his vb net programmer his tachypnea appears to resolve and he is much more relaxed and breathing normally. No use of accessory muscles. Cardiovascular: RRR S1 and S2 are normal, no murmur Gastrointestinal: Abdomen is soft, non distended, non tender, BS present. Indwelling Clay in place Musculoskeletal: No edema. No joint deformities Neurologic: Unable to assess patient not following my instructions Mental Status: A&O x0, anxious and agitated Skin: Warm, dry LABORATORY DATA: See below. IMAGING: CT chest done in the ED negative for signs of CHF or pneumonia. CT head in the ED negative for intracranial abnormalities. CT abdomen and pelvis in the ED doesn't show obvious abnormality MICROBIOLOGY: Please see below. ASSESSMENT/PLAN: 74-year-old man past medical history of dementia, GERD, HTN. Brought in by his vb net programmer Estela due to increasing and satiety and agitation at home. He has baseline dementia but according to his vb net programmer his mentation has worsened over the past 2 days has unable to answer any questions. Patient will be admitted to the medical unit for further workup. # Agitation/anxiety: Although doesn't meet all criteria for serotonin syndrome. I will hold off on home SSRI. Ativan IV PRN for severe agitation/anxiety. Could also be 2/2 UTI. # UTI: Urinalysis positive, UCx pending, BCx, Tylenol for fever PRN, Ceftriaxone 1g q24h # Dementia:Fall precautions, Risk of deconditioning and sun downing, Window bed and quiet time, PT/OT, Halidol IM low dose if needed for severe agitation. Needs regular BMs # Urinary retention: voiding trails in AM # HTN: no antihypertensives seen on home meds. Reconsile in AM. will start him on amlodipine and hctz. Monitor and titrate. # DVT prophylaxis: lovenox Vital Signs Vital Signs Date Time Temp Pulse Resp B/P (MAP) Pulse Ox O2 Delivery O2 Flow Rate FiO2 01/08/20 22:54 30 01/08/20 22:45 75 156/92 (113) 97 Room Air 01/08/20 16:58 100.4 Laboratory Data Labs 24H Laboratory Tests 2 01/08/20 16:43: Immature Granulocyte % (Auto) 0.4, Neutrophils (%) (Auto) 79.0H, Lymphocytes (%) (Auto) 15.0L, Monocytes (%) (Auto) 4.3, Eosinophils (%) (Auto) 0.8, Basophils (% ) (Auto) 0.5, Neutrophils # (Auto) 6.7, Lymphocytes # (Auto) 1.3L, Monocytes # (Auto) 0.4, Eosinophils # (Auto) 0.1, Basophils # (Auto) 0.0, Nucleated Red Blood Cells % (auto) 0.0, Total Bilirubin 1.5H, Direct Bilirubin 0.5H, Aspartate Amino Transf (AST/SGOT) 14, Alanine Aminotransferase (ALT/SGPT) 13, Alkaline Phosphatase 66, Total Creatine Kinase 157, Creatine Kinase MB 1.7, Creatine Kinase MB Relative Index 1.08, Troponin I < 0.02, Total Protein 6.7, Albumin 3.6, Albumin/Globulin Ratio 1.2, Lipase 70L 01/08/20 16:52: POC Glucose (Misc Panel) 85, POC Sodium (Misc Panel) 141, POC Potassium (Misc Panel) 3.7, POC Chloride (Misc Panel) 109, POC Total CO2 (Misc Panel) 18.0L, POC Blood Urea Nitrogen (Misc Panel 15, POC Ionized Calcium (Misc Panel) 4.5, POC Creatinine (Misc Panel) 1.0, POC Hematocrit (Misc Panel) 39.0 01/08/20 17:17: POC Total CO2 (Misc Panel) 15.0L, POC pH (Misc Panel) 7.637*H, POC Base Excess (Misc Panel) -7.0L, POC Saturated Percent O2 (Misc) 99H, POC pO2 (Misc Panel) 99.0, POC pCO2 (Misc Panel) 13.3*L, POC HCO3 (Misc Panel) 14.2L 01/08/20 17:39: Urine Color YELLOW, Urine Appearance CLOUDYH, Urine pH 8.0, Urine Specific [place] 1.019, Urine Protein 3+H, Urine Glucose (UA) NEGATIVE, Urine Ketones 2+H, Urine Blood 3+H, Urine Nitrite NEGATIVE, Urine Bilirubin 1+H, Urine Urobilinogen 4.0H, Urine Leukocyte Esterase TRACEH, Urine WBC (Auto) 2, Urine RBC (Auto) TNTCH, Urine Hyaline Casts (Auto) 0, Urine Bacteria (Auto) 1+H, Urine Squamous Epithelial Cells 0, Urine Mucus (Auto) SMALL, Urine Sperm (Auto) 01/08/20 22:05: D-Dimer, Quantitative 355.79 CBC/BMP Laboratory Tests 01/08/20 16:43 Microbiology Microbiology 01/08/20 Urine Culture, Received Pending 01/08/20 Blood Culture, Received Pending 01/08/20 Blood Culture, Received Pending Home Medications Scheduled Citalopram Hydrobromide (Citalopram HBr) 20 Mg Tab, 20 MG PO DAILY Donepezil HCl (Donepezil HCl) 10 Mg Tablet, 10 MG PO DAILY TAKES AROUND 1500 Esomeprazole Magnesium (Esomeprazole Magnesium Dr) 40 Mg Capsule.dr, 40 MG PO DAILY Gabapentin (Gabapentin) 300 Mg Cap, 300 MG PO TID Memantine HCl (Namenda Xr) 28 Mg Cap, 28 MG PO DAILY Tamsulosin HCl (Flomax) 0.4 Mg Capsule, 0.4 MG PO DAILY AFTER LUNCH Trazodone HCl (Trazodone HCl) 50 Mg Tablet, 50 MG PO QHS Scheduled PRN Metoclopramide HCl (Reglan) 10 Mg Tab, 10 MG PO Q6H PRN for NAUSEA Allergies Coded Allergies: No Known Drug Allergies (Verified Allergy, Unknown, 12/03/19) A-FIB/CHADSVASC A-FIB History Current/History of A-Fib/PAF?: No KRISTAL HDZ MD Jan 09, 2020 01:32
[2020-01-09] MEDS: GABAPENTIN 300 MG CAP PO SCH ×4 (01:56→22:29)
[2020-01-09] MEDS: traZODone 50 MG TAB PO SCH ×2 (01:57→22:29)
[2020-01-09 03:30] VITALS: BP 123/68
[2020-01-09] MEDS: cefTRIAXone SOD 1 GM in D5W MINI-BAG PLUS 50 ML IV SCH (03:44)
[2020-01-09 06:00] VITALS: BP 146/83
[2020-01-09 06:10] LABS: HEMATOCRIT 32.9 % (42.0-52.0); HEMOGLOBIN 11.5 g/dl (13.5-17.5); MEAN CORPUSCULAR HEMOGLOBIN 30.5 pg (27.0-33.0); MEAN CORPUSCULAR VOLUME 87.3 fl (80.0-96.0); PLATELET COUNT, AUTOMATED 118 10^3/uL (150-450); RED BLOOD COUNT 3.77 10^6/uL (4.30-6.10); WHITE BLOOD COUNT 5.8 10^3/uL (4.0-10.0)
[2020-01-09 06:38] LABS: ALBUMIN 3.3 GM/DL (3.2-5.2); ALT/SGPT 12 U/L (12-78); BILIRUBIN,TOTAL 1.3 MG/DL (0.2-1.0); BLOOD UREA NITROGEN 15 MG/DL (7-18); CALCIUM LEVEL 8.6 MG/DL (8.8-10.2); CARBON DIOXIDE LEVEL 23 MEQ/L (21-32); CHLORIDE LEVEL 112 MEQ/L (98-107); CREATININE FOR GFR 1.02 MG/DL (0.70-1.30); GLOMERULAR FILTRATION RATE > 60.0 (>42); GLUCOSE, FASTING 109 MG/DL (70-100); POTASSIUM SERUM 3.5 MEQ/L (3.5-5.1); SODIUM LEVEL 141 MEQ/L (136-145); TOTAL PROTEIN 6.1 GM/DL (6.4-8.2)
--- NOTE | 2020-01-09 08:32 | ECGEPIP ---
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
[2020-01-09] MEDS ORDERED: hydroCHLOROthiazide 12.5 MG CAPSULE PO SCH (09:00)
[2020-01-09] MEDS: ENOXAPARIN 40MG/0.4ML SYRINGE (J1650 PER 10MG) SC SCH (11:57)
[2020-01-09] MEDS: amLODIPine 5 MG TAB PO SCH (12:07)
[2020-01-09] MEDS: TAMSULOSIN 0.4 MG CAP PO SCH (12:56)
[2020-01-09 14:00] VITALS: BP 136/76
--- NOTE | 2020-01-09 15:30 | IPNPDOC ---
Text Note Date of Service The patient was seen on 01/09/20. NOTE Subjective: Patient is a 74-year-old male with a PMHx of Dementia, HTN, GERD who was brought to the emergency room by his supervisor throwing department Estela due to increased agitation and anxiety at home. As per the supervisor throwing department, patient was at [facility] on Tuesday for urinary retention and had a Clay catheter placed and he was discharged home. Subsequent day the patient experienced agitation and change in his baseline mentation (less communicative) and was brought to the ER for further evaluation. Patient was seen and examined at the bedside. Currently patient appears to be responsive to voice and stimuli.. He did say good morning and reported his name to me this morning. Was unable to answer time or place. Denied any pain. Objective: Vitals (See below) General: Lying in bed, no acute distress, comfortable, Awake / Arousable / Oriented to person only HEENT: NC, AT CVS: RRR, +S1S2 Lungs: Fair air entry b/l, no appreciable wheezing, rhonchi or rales Abdomen: Soft, nondistended and nontender Extremities: LE are without any edema, - Calf tenderness Assessment and plan: Acute metabolic encephalopathy - likely 2/2 UTI - Patient has had slight improvement of his mentation - Patient has dementia at baseline, but was more agitated had a change in his baseline level of communication - No focal neurologic deficits - CT head 01/07: No acute intracranial findings. - Will DC Lorazepam UTI - likely 2/2 Catheter placement - As per history patient became more agitated after Clay catheter was placed - Has remained hemodynamically stable and afebrile since admission - No significant leukocytosis - UA appears abnormal; Urine culture pending - CT chest 01/07: No evidence of pneumonia or congestive heart failure. - CT abdomen / pelvis 01/07: No definite acute findings. Examination is limited due to patient motion. - c/w Ceftriaxone (Day #2) Urinary retention - possibly 2/2 constipation, possibly 2/2 BPH - s/p Clay catheter this morning - Will c/w Bladder scans - c/w Tamsulosin - c/w Bowel regimen HTN - DC HCTZ - Will c/w Amlodipine DVT prophylaxis - c/w Lovenox VS,Fishbone, I+O VS, Fishbone, I+O Laboratory Tests 01/08/20 16:43 01/09/20 05:50 Vital Signs Date Time Temp Pulse Resp B/P (MAP) Pulse Ox O2 Delivery O2 Flow Rate FiO2 01/09/20 14:00 97.8 68 17 136/76 (96) 95 Room Air I&O- Last 24 Hours up to 6 AM 01/09/20 06:00 Intake Total 1000 ml Output Total 75 ml Balance 925 ml PRINCESS PANIAGUA MD Jan 09, 2020 15:30
[2020-01-09 22:00] VITALS: BP 134/76
[2020-01-10 00:39] VITALS: BP 144/96
[2020-01-10] MEDS ORDERED: LORazepam 2 MG/ML VIAL IV STA (01:01)
[2020-01-10] MEDS: cefTRIAXone SOD 1 GM in D5W MINI-BAG PLUS 50 ML IV SCH (01:09)
--- NOTE | 2020-01-10 01:09 | IPNPDOC ---
Subjective Date Seen The patient was seen on 01/10/20. Subjective Chief Complaint/HPI I was notified that patient had a RR of 44 and that he was using accessory muscles to breathe. His other vitlas were 144/96 O2 saturation 98% on RA HR 76. Pt was seen by both me and attending physician (Dr. Graham) at bedside with patient's pooling operator and business intelligence director at bedside. Pt is anxious and restless at bedside and 1x dose ativan 2mg given. He was re-assessed 30 mins and 1 hour after and respirations have normalized to 18 and patient appears a lot more calm and is satting at 98% on RA without any accessory muscle use. Assessment /Plan Plan/VTE VTE Prophylaxis Ordered?: Yes VS, I&O, 24H, Fishbone Vital Signs/I&O Vital Signs Date Time Temp Pulse Resp B/P (MAP) Pulse Ox O2 Delivery O2 Flow Rate FiO2 01/10/20 00:39 97.8 76 44 144/96 (112) 98 01/09/20 14:00 Room Air I&O- Last 24 Hours up to 6 AM 01/10/20 06:00 Intake Total 75 ml Output Total 250 ml Balance -175 ml Laboratory Data 24H LABS Laboratory Tests 2 01/09/20 05:50: Nucleated Red Blood Cells % (auto) 0.0, Anion Gap 6L, Glomerular Filtration Rate > 60.0, Calcium Level 8.6L, Total Bilirubin 1.3H, Aspartate Amino Transf (AST/SGOT) 13, Alanine Aminotransferase (ALT/SGPT) 12, Alkaline Phosphatase 62, Total Protein 6.1L, Albumin 3.3, Albumin/Globulin Ratio 1.2 01/09/20 08:55: Lab Scanned Report Miscellaneous Lab CBC/BMP Laboratory Tests 01/09/20 05:50 Microbiology Microbiology 01/08/20 Urine Culture, Received Pending 01/08/20 Blood Culture - Preliminary, Resulted No growth after 24 hours . All specim... 01/08/20 Blood Culture - Preliminary, Resulted No growth after 24 hours . All specim... Nerissa Gee DO Jan 10, 2020 01:09
[2020-01-10 06:00] VITALS: BP 143/93
[2020-01-10 07:44] LABS: BASO % 0.5 % (0.0-1.0); EOS # 0.1 10^3/uL (0.0-0.5); EOS % 2.4 % (0.0-3.0); HEMATOCRIT 37.7 % (42.0-52.0); HEMOGLOBIN 13.3 g/dl (13.5-17.5); LYMPH % 17.6 % (24.0-44.0); MEAN CORPUSCULAR HEMOGLOBIN 30.5 pg (27.0-33.0); MEAN CORPUSCULAR HGB CONC 35.3 g/dl (32.0-36.5); MEAN CORPUSCULAR VOLUME 86.5 fl (80.0-96.0); MONO # 0.4 10^3/uL (0.0-0.8); MONO % 6.1 % (0.0-5.0); NEUTROPHILS # 4.2 10^3/uL (1.5-8.5); NEUTROPHILS % 73.1 % (36.0-66.0); PLATELET COUNT, AUTOMATED 137 10^3/uL (150-450); RED BLOOD COUNT 4.36 10^6/uL (4.30-6.10); WHITE BLOOD COUNT 5.7 10^3/uL (4.0-10.0)
[2020-01-10 08:16] LABS: BLOOD UREA NITROGEN 13 MG/DL (7-18); CALCIUM LEVEL 8.8 MG/DL (8.8-10.2); CARBON DIOXIDE LEVEL 24 MEQ/L (21-32); CHLORIDE LEVEL 109 MEQ/L (98-107); CREATININE FOR GFR 0.86 MG/DL (0.70-1.30); GLOMERULAR FILTRATION RATE > 60.0 (>42); GLUCOSE, FASTING 96 MG/DL (70-100); MAGNESIUM LEVEL 2.1 MG/DL (1.8-2.4); POTASSIUM SERUM 3.5 MEQ/L (3.5-5.1); SODIUM LEVEL 140 MEQ/L (136-145)
[2020-01-10] MEDS: ENOXAPARIN 40MG/0.4ML SYRINGE (J1650 PER 10MG) SC SCH (08:56)
[2020-01-10] MEDS: GABAPENTIN 100 MG CAP PO SCH ×3 (08:57→19:33)
[2020-01-10] MEDS: amLODIPine 5 MG TAB PO SCH ×2 (08:57→19:33)
[2020-01-10] MEDS: hydrOXYzine 50 MG TAB PO PRN ×2 (11:27→17:54)
--- NOTE | 2020-01-10 11:48 | IPNPDOC ---
Text Note Date of Service The patient was seen on 01/10/20. NOTE Subjective: Patient is a 74-year-old male with a PMHx of Dementia, HTN, GERD who was brought to the emergency room by his choir member Estela due to increased agitation and anxiety at home. As per the choir member, patient was at [facility] on Tuesday for urinary retention and had a Clay catheter placed and he was discharged home. Subsequent day the patient experienced agitation and change in his baseline mentation (less communicative) and was brought to the ER for further evaluation. Patient was seen and examined at the bedside. Patient appears to be cooperative, he does appear to be slightly anxious and fidgety while in the room. Denies any nausea, vomiting, does not appear to be in any pain. Objective: Vitals (See below) General: Lying in bed, again does not appear to be in any distress and does rohit ear comfortable, but fidgety. He is awake and alert and oriented to person HEENT: NC, AT CVS: +S1S2 Lungs: Auscultation reveals fair air entry bilaterally without evidence of rhonchi, crackles or wheezing Abdomen: Abdomen remains soft without any distention or tenderness Extremities: No edema of lower extremities is appreciated, - Calf tenderness Assessment and plan: Acute metabolic encephalopathy - likely 2/2 UTI, possibly 2/2 medications - Patient still appears to be slightly agitated; oriented to person - No focal neurologic deficits - CT head 01/07: No acute intracranial findings. - Was given a dose of Lorazepam yesterday evening - Will start Hydroxyzine for now; DC Trazodone, Will start Seroquel UTI - likely 2/2 Catheter placement from Staph. Epidermidis - As per history patient became more agitated after Clay catheter was placed - Has remained hemodynamically stable and afebrile since admission - No significant leukocytosis - UA appears abnormal; Urine culture pending - CT chest 01/07: No evidence of pneumonia or congestive heart failure. - CT abdomen / pelvis 01/07: No definite acute findings. Examination is limited due to patient motion. - c/w Ceftriaxone (Day #3) Urinary retention - possibly 2/2 constipation, possibly 2/2 BPH - s/p Clay catheter on 10/7 AM; continued to experience retention overnight - c/w Tamsulosin - Will re-insert Clay catheter today - Will need outpatient follow up with Urology HTN - BP slightly elevated - DC HCTZ - c/w Amlodipine; will increase frequency DVT prophylaxis - c/w Lovenox VS,Fishbone, I+O VS, Fishbone, I+O Laboratory Tests 01/10/20 07:20 Vital Signs Date Time Temp Pulse Resp B/P (MAP) Pulse Ox O2 Delivery O2 Flow Rate FiO2 01/10/20 08:57 85 147/94 01/10/20 06:00 98.2 19 96 Room Air I&O- Last 24 Hours up to 6 AM 01/10/20 06:00 Intake Total 175 ml Output Total 250 ml Balance -75 ml PRINCESS PANIAGUA MD Jan 10, 2020 11:48
[2020-01-10 12:06] LABS: C REACTIVE PROTEIN QUANTITATIV 2.28 MG/DL (0.00-0.30)
[2020-01-10] MEDS: TAMSULOSIN 0.4 MG CAP PO SCH (13:50)
[2020-01-10 14:00] VITALS: BP 155/94
[2020-01-10] MEDS: ACETAMINOPHEN TAB 650MG DOSE (2X325MG) PO PRN (19:34)
[2020-01-10] MEDS ORDERED: QUEtiapine FUMARATE 12.5 MG HALF-TAB PO SCH (21:00)
[2020-01-10 22:00] VITALS: BP 156/96
[2020-01-11] MEDS: cefTRIAXone SOD 1 GM in D5W MINI-BAG PLUS 50 ML IV SCH (02:41)
[2020-01-11] MEDS: hydrOXYzine 50 MG TAB PO PRN ×3 (02:43→18:58)
[2020-01-11 06:00] VITALS: BP 154/95
[2020-01-11 09:32] LABS: BASO % 0.5 % (0.0-1.0); EOS # 0.1 10^3/uL (0.0-0.5); EOS % 1.4 % (0.0-3.0); HEMATOCRIT 40.2 % (42.0-52.0); HEMOGLOBIN 14.3 g/dl (13.5-17.5); MEAN CORPUSCULAR HEMOGLOBIN 30.4 pg (27.0-33.0); MEAN CORPUSCULAR HGB CONC 35.6 g/dl (32.0-36.5); MEAN CORPUSCULAR VOLUME 85.5 fl (80.0-96.0); MONO # 0.4 10^3/uL (0.0-0.8); MONO % 6.4 % (0.0-5.0); NEUTROPHILS # 4.8 10^3/uL (1.5-8.5); NEUTROPHILS % 75.4 % (36.0-66.0); PLATELET COUNT, AUTOMATED 165 10^3/uL (150-450); WHITE BLOOD COUNT 6.4 10^3/uL (4.0-10.0)
[2020-01-11 09:55] LABS: BLOOD UREA NITROGEN 9 MG/DL (7-18); C REACTIVE PROTEIN QUANTITATIV 2.15 MG/DL (0.00-0.30); CALCIUM LEVEL 8.9 MG/DL (8.8-10.2); CARBON DIOXIDE LEVEL 25 MEQ/L (21-32); CHLORIDE LEVEL 107 MEQ/L (98-107); CREATININE FOR GFR 0.83 MG/DL (0.70-1.30); GLOMERULAR FILTRATION RATE > 60.0 (>42); GLUCOSE, FASTING 102 MG/DL (70-100); MAGNESIUM LEVEL 2.1 MG/DL (1.8-2.4); POTASSIUM SERUM 3.1 MEQ/L (3.5-5.1); SODIUM LEVEL 140 MEQ/L (136-145)
--- NOTE | 2020-01-11 10:08 | IPNPDOC ---
Text Note Date of Service The patient was seen on 01/11/20. NOTE Subjective: Patient is a 74-year-old male with a PMHx of Dementia, HTN, GERD who was brought to the emergency room by his fire extinguisher charger Estela due to increased agitation and anxiety at home. As per the fire extinguisher charger, patient was at [facility] on Tuesday for urinary retention and had a Clay catheter placed and he was discharged home. Subsequent day the patient experienced agitation and change in his baseline mentation (less communicative) and was brought to the ER for further evaluation. Patient was seen and examined at the bedside. Currently they do not appear to be in any acute distress. He denies any pain. Caregiver at bedside reports that he has had a better night but didn't sleep much. Objective: Vitals (See below) General: Lying in bed, appears comfortable, fidgety, awake, oriented to person HEENT: NC, AT CVS: +S1S2 Lungs: Air entry is fair bilaterally and auscultation does not reveal any wheezing, rhonchi or crackles Abdomen: Nondistended, nontender, and remained soft Extremities: Lower extremities are without any edema, - Calf tenderness Assessment and plan: Acute metabolic encephalopathy - likely 2/2 UTI, possibly 2/2 medications - Patient still appears to be slightly agitated; oriented to person - No focal neurologic deficits - CT head 01/07: No acute intracranial findings. - s/p Lorazepam; Discontinued Trazodone from home - c/w Hydroxyzine; Will increase dose of Seroquel UTI - likely 2/2 Catheter placement from Staph. Epidermidis - As per history patient became more agitated after Clay catheter was placed - Hemodynamically stable / afebrile - No significant leukocytosis - UA appears abnormal; Urine culture 01/07: Staph Epidermidis - CT chest 01/07: No evidence of pneumonia or congestive heart failure. - CT abdomen / pelvis 01/07: No definite acute findings. Examination is limited due to patient motion. - Will DC Ceftriaxone; Will start Cefdinir (Antibiotic day #4) Urinary retention - possibly 2/2 constipation, possibly 2/2 BPH - s/p Clay catheter on 10/7 AM; continued to experience retention overnight - c/w Tamsulosin - c/w Clay catheter today - Will need outpatient follow up with Urology for voiding trial HTN - BP slightly elevated - If BP still elevated will re-adjust medications - s/p HCTZ - c/w Amlodipine at BID dosing DVT prophylaxis - c/w Lovenox VS,Fishbone, I+O VS, Fishbone, I+O Laboratory Tests 01/11/20 08:05 Vital Signs Date Time Temp Pulse Resp B/P (MAP) Pulse Ox O2 Delivery O2 Flow Rate FiO2 01/11/20 06:00 98.9 90 18 154/95 (114) 96 Room Air I&O- Last 24 Hours up to 6 AM 01/11/20 06:00 Intake Total 670 ml Output Total 2925 ml Balance -2255 ml PRINCESS PANIAGUA MD Jan 11, 2020 10:08
[2020-01-11] MEDS: GABAPENTIN 100 MG CAP PO SCH ×3 (10:36→19:52)
[2020-01-11] MEDS: CEFDINIR 300 MG CAP (OMNICEF) PO SCH ×2 (10:37→19:52)
[2020-01-11] MEDS: amLODIPine 5 MG TAB PO SCH ×2 (10:39→19:55)
[2020-01-11] MEDS: ENOXAPARIN 40MG/0.4ML SYRINGE (J1650 PER 10MG) SC SCH (10:51)
[2020-01-11] MEDS: TAMSULOSIN 0.4 MG CAP PO SCH (13:16)
[2020-01-11 16:00] VITALS: BP 151/95
[2020-01-11] MEDS: ACETAMINOPHEN TAB 650MG DOSE (2X325MG) PO PRN (19:52)
[2020-01-11] MEDS: QUEtiapine FUMARATE 12.5 MG HALF-TAB PO SCH (19:52)
[2020-01-11 22:00] VITALS: BP 153/94
[2020-01-12] MEDS: hydrOXYzine 50 MG TAB PO PRN ×3 (03:32→16:57)
[2020-01-12] MEDS: ACETAMINOPHEN TAB 650MG DOSE (2X325MG) PO PRN ×2 (03:32→16:57)
[2020-01-12 06:00] VITALS: BP 114/74
[2020-01-12 08:14] LABS: BASO % 0.3 % (0.0-1.0); EOS % 0.5 % (0.0-3.0); HEMATOCRIT 41.4 % (42.0-52.0); HEMOGLOBIN 15.1 g/dl (13.5-17.5); LYMPH # 1.5 10^3/uL (1.5-5.0); LYMPH % 17.7 % (24.0-44.0); MEAN CORPUSCULAR HEMOGLOBIN 30.4 pg (27.0-33.0); MEAN CORPUSCULAR HGB CONC 36.5 g/dl (32.0-36.5); MEAN CORPUSCULAR VOLUME 83.3 fl (80.0-96.0); MONO # 0.5 10^3/uL (0.0-0.8); MONO % 5.4 % (0.0-5.0); NEUTROPHILS # 6.6 10^3/uL (1.5-8.5); NEUTROPHILS % 75.9 % (36.0-66.0); PLATELET COUNT, AUTOMATED 193 10^3/uL (150-450); RED BLOOD COUNT 4.97 10^6/uL (4.30-6.10); WHITE BLOOD COUNT 8.6 10^3/uL (4.0-10.0)
[2020-01-12 08:43] LABS: BLOOD UREA NITROGEN 13 MG/DL (7-18); C REACTIVE PROTEIN QUANTITATIV 2.55 MG/DL (0.00-0.30); CALCIUM LEVEL 9.4 MG/DL (8.8-10.2); CARBON DIOXIDE LEVEL 20 MEQ/L (21-32); CHLORIDE LEVEL 107 MEQ/L (98-107); CREATININE FOR GFR 0.97 MG/DL (0.70-1.30); GLOMERULAR FILTRATION RATE > 60.0 (>42); GLUCOSE, FASTING 96 MG/DL (70-100); POTASSIUM SERUM 3.2 MEQ/L (3.5-5.1); SODIUM LEVEL 139 MEQ/L (136-145)
[2020-01-12] MEDS ORDERED: POTASSIUM CHLORIDE 10 MEQ SR TABLET PO ONE (10:00)
[2020-01-12] MEDS: SENOKOT S TAB PO PRN ×2 (10:36→19:33)
[2020-01-12] MEDS: MEMANTINE 5MG TABLET (NAMENDA) PO SCH ×2 (10:36→19:34)
[2020-01-12] MEDS: GABAPENTIN 100 MG CAP PO SCH ×3 (10:36→19:34)
[2020-01-12] MEDS: NS 1,000 ML IV SCH ×2 (10:36→19:36)
[2020-01-12] MEDS: CEFDINIR 300 MG CAP (OMNICEF) PO SCH ×2 (10:37→19:33)
[2020-01-12] MEDS: amLODIPine 5 MG TAB PO SCH ×2 (10:37→19:35)
[2020-01-12] MEDS: ENOXAPARIN 40MG/0.4ML SYRINGE (J1650 PER 10MG) SC SCH (10:38)
--- NOTE | 2020-01-12 11:51 | IPNPDOC ---
Text Note Date of Service The patient was seen on 01/12/20. NOTE Subjective: Patient is a 74-year-old male with a PMHx of Dementia, HTN, GERD who was brought to the emergency room by his systems development manager Estela due to increased agitation and anxiety at home. As per the systems development manager, patient was at [facility] on Tuesday for urinary retention and had a Clay catheter placed and he was discharged home. Subsequent day the patient experienced agitation and change in his baseline mentation (less communicative) and was brought to the ER for further evaluation. Patient was seen and examined at the bedside. Patient appears to be slightly agitated this morning, more fidgety, but can be redirected. Denies any pain. Objective: Vitals (See below) General: Lying in bed, appears comfortable, fidgety, awake, oriented to person HEENT: NC, AT CVS: +S1S2 Lungs: Air entry is fair bilaterally without evidence of rhonchi, crackles or wheezing Abdomen: Soft / Non-distended / Non-tender Extremities: LE are without any edema, - Calf tenderness Assessment and plan: Acute metabolic encephalopathy - likely 2/2 UTI, possibly 2/2 medications - Patient still appears to be slightly agitated; oriented to person - No focal neurologic deficits - CT head 01/07: No acute intracranial findings. - s/p Lorazepam; Discontinued Trazodone from home - c/w Hydroxyzine and adjusted dose of Seroquel UTI - likely 2/2 Catheter placement from Staph. Epidermidis - As per history patient became more agitated after Clay catheter was placed - Hemodynamically stable / afebrile - No significant leukocytosis; Mild CRP elevation - UA appears abnormal; Urine culture 01/07: Staph Epidermidis - CT chest 01/07: No evidence of pneumonia or congestive heart failure. - CT abdomen / pelvis 01/07: No definite acute findings. Examination is limited due to patient motion. - c/w Cefdinir (Antibiotic day #5) Normocytic anemia - Hg has trended up; possibly 2/2 hemoconcentration given poor oral intake - Will start IV fluid hydration Urinary retention - possibly 2/2 constipation, possibly 2/2 BPH - s/p Clay catheter on 10/7 AM; continued to experience retention overnight - c/w Tamsulosin - c/w Clay catheter today - Will need outpatient follow up with Urology for voiding trial HTN - BP well controlled - s/p HCTZ - c/w Amlodipine at BID dosing DVT prophylaxis - c/w Lovenox VS,Fishbone, I+O VS, Fishbone, I+O Laboratory Tests 01/12/20 07:58 Vital Signs Date Time Temp Pulse Resp B/P (MAP) Pulse Ox O2 Delivery O2 Flow Rate FiO2 01/12/20 10:37 101 131/86 01/12/20 06:00 98.6 20 98 Room Air I&O- Last 24 Hours up to 6 AM 01/12/20 06:00 Intake Total 795 ml Output Total 1100 ml Balance -305 ml PRINCESS PANIAGUA MD Jan 12, 2020 11:51
[2020-01-12] MEDS: TAMSULOSIN 0.4 MG CAP PO SCH (13:19)
[2020-01-12] MEDS: DONEPEZIL 5 MG TAB PO SCH (15:52)
[2020-01-12] MEDS: QUEtiapine FUMARATE 12.5 MG HALF-TAB PO SCH (18:47)
[2020-01-12] MEDS ORDERED: traZODone 50 MG TAB PO SCH (21:00)
[2020-01-12 22:00] VITALS: BP 138/72
[2020-01-13 06:56] LABS: BASO % 0.3 % (0.0-1.0); EOS # 0.2 10^3/uL (0.0-0.5); EOS % 3.2 % (0.0-3.0); HEMATOCRIT 39.1 % (42.0-52.0); HEMOGLOBIN 13.9 g/dl (13.5-17.5); LYMPH % 32.8 % (24.0-44.0); MEAN CORPUSCULAR HEMOGLOBIN 30.2 pg (27.0-33.0); MEAN CORPUSCULAR HGB CONC 35.5 g/dl (32.0-36.5); MEAN CORPUSCULAR VOLUME 84.8 fl (80.0-96.0); MONO # 0.4 10^3/uL (0.0-0.8); MONO % 6.8 % (0.0-5.0); NEUTROPHILS # 3.4 10^3/uL (1.5-8.5); NEUTROPHILS % 56.6 % (36.0-66.0); PLATELET COUNT, AUTOMATED 191 10^3/uL (150-450); RED BLOOD COUNT 4.61 10^6/uL (4.30-6.10)
[2020-01-13 07:27] LABS: BLOOD UREA NITROGEN 17 MG/DL (7-18); C REACTIVE PROTEIN QUANTITATIV 1.85 MG/DL (0.00-0.30); CALCIUM LEVEL 8.8 MG/DL (8.8-10.2); CARBON DIOXIDE LEVEL 20 MEQ/L (21-32); CHLORIDE LEVEL 113 MEQ/L (98-107); CREATININE FOR GFR 0.93 MG/DL (0.70-1.30); GLOMERULAR FILTRATION RATE > 60.0 (>42); GLUCOSE, FASTING 94 MG/DL (70-100); MAGNESIUM LEVEL 2.2 MG/DL (1.8-2.4); POTASSIUM SERUM 3.7 MEQ/L (3.5-5.1); SODIUM LEVEL 143 MEQ/L (136-145)
[2020-01-13] MEDS: hydrOXYzine 50 MG TAB PO PRN (07:38)
[2020-01-13] MEDS: NS 1,000 ML IV SCH ×2 (08:37→21:07)
[2020-01-13] MEDS: ENOXAPARIN 40MG/0.4ML SYRINGE (J1650 PER 10MG) SC SCH (09:40)
[2020-01-13] MEDS: MEMANTINE 5MG TABLET (NAMENDA) PO SCH ×2 (09:40→21:07)
--- NOTE | 2020-01-13 09:40 | IPNPDOC ---
Text Note Date of Service The patient was seen on 01/13/20. NOTE Subjective: Patient is a 74-year-old male with a PMHx of Dementia, HTN, GERD who was brought to the emergency room by his fbi sharpshooter Estela due to increased agitation and anxiety at home. As per the fbi sharpshooter, patient was at [facility] on Tuesday for urinary retention and had a Clay catheter placed and he was discharged home. Subsequent day the patient experienced agitation and change in his baseline mentation (less communicative) and was brought to the ER for further evaluation. Patient was seen and examined at the bedside. Patient was seen sitting in bed, does not appear to be in any distress reported that he did sleep well over the evening. Is any pain today. Reports his name and birthday. Objective: Vitals (See below) General: Sitting up in bed, appears to be fidgety, awake, alert, oriented to person HEENT: NC, AT CVS: +S1S2 Lungs: There appears to be fair air entry bilaterally without evidence of rhonchi, crackles or wheezing Abdomen: Again, abdomen is soft, there does not appear to be any distention or tenderness Extremities: No edema appreciated, - Calf tenderness Assessment and plan: Acute metabolic encephalopathy - likely 2/2 UTI, possibly 2/2 medications - Minimally agitated today and slept throughout the night yesterday - Was ambulating yesterday - No focal neurologic deficits - CT head 01/07: No acute intracranial findings. - s/p Lorazepam and Trazodone - c/w Hydroxyzine and Seroquel - See antibiotics below UTI - likely 2/2 Catheter placement from Staph Epidermidis - As per history patient became more agitated after Clay catheter was placed - Hemodynamically stable / afebrile - No significant leukocytosis; CRP improving - UA appears abnormal; Urine culture 01/07: Staph Epidermidis - CT chest 01/07: No evidence of pneumonia or congestive heart failure. - CT abdomen / pelvis 01/07: No definite acute findings. Examination is limited due to patient motion. - c/w Cefdinir (Antibiotic day #6) Normocytic anemia - Hg improved; initially was elevated possibly 2/2 hemoconcentration given poor oral intake - c/w IV fluid hydration Urinary retention - possibly 2/2 constipation, possibly 2/2 BPH - s/p Clay catheter on 01/08 AM; continued to experience retention overnight - c/w Tamsulosin - c/w Clay catheter today - Will need outpatient follow up with Urology for voiding trial HTN - BP remains well controlled - s/p HCTZ - c/w Amlodipine at BID dosing DVT prophylaxis - c/w Lovenox Disposition: - Anticipate discharge within 24 hours VS,Fishbone, I+O VS, Fishbone, I+O Laboratory Tests 01/13/20 06:45 Vital Signs Date Time Temp Pulse Resp B/P (MAP) Pulse Ox O2 Delivery O2 Flow Rate FiO2 01/12/20 22:00 97.9 104 22 138/72 (94) 97 Room Air I&O- Last 24 Hours up to 6 AM 01/13/20 06:00 Intake Total 2330 ml Output Total 700 ml Balance 1630 ml PRINCESS PANIAGUA MD Jan 13, 2020 09:40
[2020-01-13] MEDS: amLODIPine 5 MG TAB PO SCH ×2 (09:41→21:08)
[2020-01-13] MEDS: CEFDINIR 300 MG CAP (OMNICEF) PO SCH ×2 (09:41→21:08)
[2020-01-13] MEDS: PANTOPRAZOLE 40MG TAB (PROTONIX) PO SCH (09:41)
[2020-01-13] MEDS: GABAPENTIN 100 MG CAP PO SCH ×3 (09:42→21:07)
[2020-01-13] MEDS: SENOKOT S TAB PO PRN (11:44)
[2020-01-13] MEDS: ACETAMINOPHEN TAB 650MG DOSE (2X325MG) PO PRN (11:44)
[2020-01-13] MEDS: MIRALAX *UNIT DOSE* 17GM PACKET PO PRN (11:44)
[2020-01-13] MEDS: LORazepam 2 MG/ML VIAL IV PRN ×2 (13:18→19:46)
[2020-01-13] MEDS: TAMSULOSIN 0.4 MG CAP PO SCH (13:39)
[2020-01-13 14:00] VITALS: BP 114/75
[2020-01-13] MEDS: DONEPEZIL 5 MG TAB PO SCH (15:55)
[2020-01-13 17:30] LABS: ALBUMIN 3.4 GM/DL (3.2-5.2); ALT/SGPT 24 U/L (12-78); BILIRUBIN,DIRECT 0.5 MG/DL (0.0-0.2); BILIRUBIN,TOTAL 1.6 MG/DL (0.2-1.0); TOTAL PROTEIN 6.8 GM/DL (6.4-8.2)
[2020-01-13 20:57] VITALS: BP 131/77
[2020-01-13] MEDS: QUEtiapine FUMARATE 12.5 MG HALF-TAB PO SCH (21:07)
[2020-01-14 07:31] LABS: BASO % 0.6 % (0.0-1.0); EOS # 0.2 10^3/uL (0.0-0.5); EOS % 5.1 % (0.0-3.0); HEMATOCRIT 34.9 % (42.0-52.0); HEMOGLOBIN 12.2 g/dl (13.5-17.5); LYMPH # 1.4 10^3/uL (1.5-5.0); LYMPH % 29.3 % (24.0-44.0); MEAN CORPUSCULAR HEMOGLOBIN 29.9 pg (27.0-33.0); MEAN CORPUSCULAR VOLUME 85.5 fl (80.0-96.0); MONO # 0.3 10^3/uL (0.0-0.8); MONO % 5.8 % (0.0-5.0); NEUTROPHILS # 2.8 10^3/uL (1.5-8.5); NEUTROPHILS % 58.8 % (36.0-66.0); PLATELET COUNT, AUTOMATED 157 10^3/uL (150-450); RED BLOOD COUNT 4.08 10^6/uL (4.30-6.10); WHITE BLOOD COUNT 4.7 10^3/uL (4.0-10.0)
[2020-01-14 07:50] LABS: BLOOD UREA NITROGEN 14 MG/DL (7-18); C REACTIVE PROTEIN QUANTITATIV 1.02 MG/DL (0.00-0.30); CALCIUM LEVEL 8.3 MG/DL (8.8-10.2); CARBON DIOXIDE LEVEL 23 MEQ/L (21-32); CHLORIDE LEVEL 113 MEQ/L (98-107); CREATININE FOR GFR 0.68 MG/DL (0.70-1.30); GLOMERULAR FILTRATION RATE > 60.0 (>42); GLUCOSE, FASTING 89 MG/DL (70-100); POTASSIUM SERUM 3.4 MEQ/L (3.5-5.1); SODIUM LEVEL 142 MEQ/L (136-145)
[2020-01-14 08:27] VITALS: BP 129/76
[2020-01-14] MEDS ORDERED: QUEtiapine FUMARATE 12.5 MG HALF-TAB PO SCH (09:00)
[2020-01-14] MEDS: POTASSIUM CHLORIDE 10 MEQ SR TABLET PO ONE ×2 (10:00→11:47)
[2020-01-14] MEDS: CEFDINIR 300 MG CAP (OMNICEF) PO SCH ×3 (10:00→21:00)
[2020-01-14] MEDS: PANTOPRAZOLE 40MG TAB (PROTONIX) PO SCH ×2 (10:00→11:47)
[2020-01-14] MEDS: amLODIPine 5 MG TAB PO SCH ×3 (10:00→21:00)
[2020-01-14] MEDS: GABAPENTIN 100 MG CAP PO SCH ×4 (10:00→22:40)
[2020-01-14] MEDS: MEMANTINE 5MG TABLET (NAMENDA) PO SCH ×3 (10:00→22:41)
[2020-01-14] MEDS: ENOXAPARIN 40MG/0.4ML SYRINGE (J1650 PER 10MG) SC SCH (10:10)
--- NOTE | 2020-01-14 10:15 | IPNPDOC ---
Text Note Date of Service The patient was seen on 01/14/20. NOTE Subjective: Patient is a 74-year-old male with a PMHx of Dementia, HTN, GERD who was brought to the emergency room by his metal fabricating supervisor Estela due to increased agitation and anxiety at home. As per the metal fabricating supervisor, patient was at [facility] on Tuesday for urinary retention and had a Clay catheter placed and he was discharged home. Subsequent day the patient experienced agitation and change in his baseline mentation (less communicative) and was brought to the ER for further evaluation. Patient was seen and examined at the bedside. This morning patient was asleep, was reported to be sleeping throughout the night. Yesterday. Patient was very anxious and required Ativan for relief. Currently patient appears comfortable. Objective: Vitals (See below) General: Laying in bed, comfortable, asleep but arousable HEENT: NC, AT CVS: +S1S2 Lungs: Air entry is fair bilaterally without evidence of rhonchi, crackles or wheezing Abdomen: Soft, nondistended, nontender Extremities: Lower extremities are without any pitting edema, - Calf tenderness Assessment and plan: Acute metabolic encephalopathy - likely 2/2 UTI, possibly 2/2 medications - Hx of Dementia; follow with Neurology as an outpatient - Minimally agitated today and slept throughout the night yesterday - Was ambulating yesterday - No focal neurologic deficits - CT head 01/07: No acute intracranial findings. - s/p Trazodone and Hydroxyzine - c/w Memantine and Donepezil - c/w Lorazepam at reduced dose - c/w Seroquel; will add AM dose as well - Will discuss with Neurology today - See antibiotics below UTI - likely 2/2 Catheter placement from Staph Epidermidis - As per history patient became more agitated after Clay catheter was placed - Hemodynamically stable / afebrile - No leukocytosis; CRP continues to improve - UA appears abnormal; Urine culture 01/07: Staph Epidermidis - CT chest 01/07: No evidence of pneumonia or congestive heart failure. - CT abdomen / pelvis 01/07: No definite acute findings. Examination is limited due to patient motion. - c/w Cefdinir (Antibiotic day #7) - will discontinue use tonight Normocytic anemia - Hg improved; initially was elevated possibly 2/2 hemoconcentration given poor oral intake - Will DC IV fluid hydration today Urinary retention - possibly 2/2 BPH, less likely 2/2 constipation - s/p Clay catheter on 107 AM; continued to experience retention overnight - c/w Tamsulosin - c/w Clay catheter today - Will need outpatient follow up with Urology for voiding trial s/p Constipation - Has had a BM overnight HTN - BP remains well controlled - s/p HCTZ - c/w Amlodipine at BID dosing GERD - c/w PPI DVT prophylaxis - c/w Lovenox Disposition: - Awaiting clinical improvement VS,Linusbone, I+O VS, Fishbone, I+O Laboratory Tests 01/14/20 06:56 Vital Signs Date Time Temp Pulse Resp B/P (MAP) Pulse Ox O2 Delivery O2 Flow Rate FiO2 01/14/20 08:27 98.8 76 18 129/76 (93) 95 Room Air I&O- Last 24 Hours up to 6 AM 01/14/20 06:00 Intake Total 1695 ml Output Total 1150 ml Balance 545 ml PRINCESS PANIAGUA MD Jan 14, 2020 10:15
[2020-01-14] MEDS: LORazepam 2 MG/ML VIAL IV PRN ×2 (11:33→21:06)
[2020-01-14] MEDS: PARoxetine 10MG TABLET PO SCH (11:34)
[2020-01-14] MEDS: TAMSULOSIN 0.4 MG CAP PO SCH (14:00)
[2020-01-14 14:06] VITALS: BP 130/77
[2020-01-14] MEDS: DONEPEZIL 5 MG TAB PO SCH (15:04)
[2020-01-14] MEDS: ACETAMINOPHEN TAB 650MG DOSE (2X325MG) PO PRN (15:54)
[2020-01-14] MEDS ORDERED: LORazepam 2 MG/ML VIAL IV STA (16:18)
[2020-01-14 22:00] VITALS: BP 148/92
[2020-01-14] MEDS: QUEtiapine FUMARATE 12.5 MG HALF-TAB PO SCH (22:40)
[2020-01-15 06:49] LABS: BASO % 0.3 % (0.0-1.0); EOS # 0.2 10^3/uL (0.0-0.5); EOS % 3.4 % (0.0-3.0); HEMATOCRIT 36.6 % (42.0-52.0); HEMOGLOBIN 13.3 g/dl (13.5-17.5); LYMPH # 1.2 10^3/uL (1.5-5.0); LYMPH % 19.5 % (24.0-44.0); MEAN CORPUSCULAR HEMOGLOBIN 30.6 pg (27.0-33.0); MEAN CORPUSCULAR HGB CONC 36.3 g/dl (32.0-36.5); MEAN CORPUSCULAR VOLUME 84.3 fl (80.0-96.0); MONO # 0.3 10^3/uL (0.0-0.8); NEUTROPHILS # 4.3 10^3/uL (1.5-8.5); NEUTROPHILS % 71.3 % (36.0-66.0); PLATELET COUNT, AUTOMATED 165 10^3/uL (150-450); RED BLOOD COUNT 4.34 10^6/uL (4.30-6.10)
[2020-01-15 07:09] LABS: BLOOD UREA NITROGEN 11 MG/DL (7-18); C REACTIVE PROTEIN QUANTITATIV 1.01 MG/DL (0.00-0.30); CALCIUM LEVEL 9.2 MG/DL (8.8-10.2); CARBON DIOXIDE LEVEL 22 MEQ/L (21-32); CHLORIDE LEVEL 112 MEQ/L (98-107); CREATININE FOR GFR 0.66 MG/DL (0.70-1.30); GLOMERULAR FILTRATION RATE > 60.0 (>42); GLUCOSE, FASTING 106 MG/DL (70-100); MAGNESIUM LEVEL 2.1 MG/DL (1.8-2.4); POTASSIUM SERUM 3.3 MEQ/L (3.5-5.1); SODIUM LEVEL 141 MEQ/L (136-145)
[2020-01-15] MEDS: PANTOPRAZOLE 40MG TAB (PROTONIX) PO SCH ×2 (09:00→11:31)
[2020-01-15] MEDS: LORazepam 0.5 MG TAB PO SCH ×2 (09:00→11:31)
--- NOTE | 2020-01-15 10:17 | IPNPDOC ---
Text Note Date of Service The patient was seen on 01/15/20. NOTE Subjective: Patient is a 74-year-old male with a PMHx of Dementia, HTN, GERD who was brought to the emergency room by his auto glass worker Estela due to increased agitation and anxiety at home. As per the auto glass worker, patient was at [facility] on Tuesday for urinary retention and had a Clay catheter placed and he was discharged home. Subsequent day the patient experienced agitation and change in his baseline mentation (less communicative) and was brought to the ER for further evaluation. Patient was seen and examined at the bedside. Patient is laying in bed, appears comfortable, asleep but arousable. Patient's caretakers present at the bedside reports that his evening was uneventful and he was able to sleep throughout the night. Objective: Vitals (See below) General: Lying in bed, does not appear to be in any distress, comfortable, asleep but arousable to verbal and physical stimuli HEENT: NC, AT CVS: +S1S2 Lungs: Fair air entry without any wheezing, crackles or rhonchi Abdomen: Abdomen remains soft without distention or tenderness Extremities: No edema of lower extremities, - Calf tenderness Assessment and plan: Acute metabolic encephalopathy - likely 2/2 UTI, possibly 2/2 medications - Hx of Dementia; follows with Neurology as an outpatient - Again patient has slept throughout the night; will adjust medications to oral form and adjust timing of medications - No focal neurologic deficits - CT head 01/07: No acute intracranial findings. - s/p Trazodone and Hydroxyzine - c/w Memantine and Donepezil - c/w Lorazepam; will adjust to PO meds - c/w Seroquel at night and Paxil in the morning - s/p antibiotics below UTI - likely 2/2 Catheter placement from Staph Epidermidis - As per history patient became more agitated after Clay catheter was placed - Hemodynamically stable / afebrile - No leukocytosis; CRP is downtrending - UA appears abnormal; Urine culture 01/07: Staph Epidermidis - CT chest 01/07: No evidence of pneumonia or congestive heart failure. - CT abdomen / pelvis 01/07: No definite acute findings. Examination is limited due to patient motion. - c/w Cefdinir (Completed 7 day course) Normocytic anemia - Hg improved; initially was elevated possibly 2/2 hemoconcentration given poor oral intake - s/p IV fluid hydration today Urinary retention - possibly 2/2 BPH, less likely 2/2 constipation - s/p Clay catheter on 10/7 AM; continued to experience retention overnight - c/w Tamsulosin - c/w Clay catheter today - Will need outpatient follow up with Urology for voiding trial s/p Constipation - Has had a BMs - s/p bowel regimen HTN - BP remains well controlled - s/p HCTZ - c/w Amlodipine at BID dosing GERD - c/w PPI DVT prophylaxis - c/w Lovenox Disposition: - Awaiting clinical improvement - Anticipate DC home VS,Fishbone, I+O VS, Fishbone, I+O Laboratory Tests 01/15/20 06:27 Vital Signs Date Time Temp Pulse Resp B/P (MAP) Pulse Ox O2 Delivery O2 Flow Rate FiO2 01/14/20 22:00 98.2 89 17 148/92 (110) 98 Room Air I&O- Last 24 Hours up to 6 AM 01/15/20 06:00 Intake Total 390 ml Output Total 1500 ml Balance -1110 ml PRINCESS PANIAGUA MD Jan 15, 2020 10:17
[2020-01-15] MEDS: ENOXAPARIN 40MG/0.4ML SYRINGE (J1650 PER 10MG) SC SCH (11:28)
[2020-01-15] MEDS: PARoxetine 10MG TABLET PO SCH (11:30)
[2020-01-15] MEDS: MEMANTINE 5MG TABLET (NAMENDA) PO SCH (11:30)
[2020-01-15] MEDS: POTASSIUM CHLORIDE 10 MEQ SR TABLET PO SCH (11:30)
[2020-01-15] MEDS: GABAPENTIN 100 MG CAP PO SCH ×2 (11:31→16:49)
[2020-01-15] MEDS: TAMSULOSIN 0.4 MG CAP PO SCH (11:31)
[2020-01-15] MEDS: amLODIPine 5 MG TAB PO SCH (11:32)
[2020-01-15] MEDS: HALOPERIDOL 5MG/ML VIAL (J1630 PER 1) IV PRN (13:33)
[2020-01-15] MEDS ORDERED: LORazepam 2 MG/ML VIAL IV ONE (14:30)
[2020-01-15] MEDS ORDERED: LORazepam 2 MG/ML VIAL IV PRN (15:00)
[2020-01-15] MEDS: QUEtiapine FUMARATE 25 MG TAB PO SCH (16:49)
[2020-01-15] MEDS: DONEPEZIL 5 MG TAB PO SCH (16:49)
[2020-01-16] MEDS: MEMANTINE 5MG TABLET (NAMENDA) PO SCH ×3 (01:07→20:06)
[2020-01-16] MEDS: amLODIPine 5 MG TAB PO SCH ×3 (01:07→20:05)
[2020-01-16] MEDS: GABAPENTIN 100 MG CAP PO SCH ×4 (01:07→20:10)
[2020-01-16 01:30] VITALS: BP 141/87
[2020-01-16] MEDS: LORazepam 2 MG/ML VIAL IV PRN ×2 (02:00→13:10)
[2020-01-16 06:00] VITALS: BP 141/86
[2020-01-16 06:40] LABS: BASO % 0.5 % (0.0-1.0); EOS # 0.1 10^3/uL (0.0-0.5); HEMATOCRIT 41.8 % (42.0-52.0); LYMPH # 1.4 10^3/uL (1.5-5.0); LYMPH % 17.8 % (24.0-44.0); MEAN CORPUSCULAR HEMOGLOBIN 29.9 pg (27.0-33.0); MEAN CORPUSCULAR HGB CONC 35.9 g/dl (32.0-36.5); MEAN CORPUSCULAR VOLUME 83.3 fl (80.0-96.0); MONO # 0.4 10^3/uL (0.0-0.8); MONO % 4.7 % (0.0-5.0); NEUTROPHILS # 5.9 10^3/uL (1.5-8.5); NEUTROPHILS % 75.6 % (36.0-66.0); PLATELET COUNT, AUTOMATED 216 10^3/uL (150-450); RED BLOOD COUNT 5.02 10^6/uL (4.30-6.10); WHITE BLOOD COUNT 7.8 10^3/uL (4.0-10.0)
[2020-01-16 06:59] LABS: BLOOD UREA NITROGEN 13 MG/DL (7-18); C REACTIVE PROTEIN QUANTITATIV 0.91 MG/DL (0.00-0.30); CALCIUM LEVEL 9.4 MG/DL (8.8-10.2); CARBON DIOXIDE LEVEL 17 MEQ/L (21-32); CHLORIDE LEVEL 112 MEQ/L (98-107); CREATININE FOR GFR 0.92 MG/DL (0.70-1.30); GLOMERULAR FILTRATION RATE > 60.0 (>42); GLUCOSE, FASTING 86 MG/DL (70-100); POTASSIUM SERUM 3.2 MEQ/L (3.5-5.1); SODIUM LEVEL 143 MEQ/L (136-145)
[2020-01-16] MEDS ORDERED: POTASSIUM CHLORIDE 10 MEQ SR TABLET PO ONE ×2 (08:00→12:00)
[2020-01-16] MEDS: ENOXAPARIN 40MG/0.4ML SYRINGE (J1650 PER 10MG) SC SCH (09:00)
--- NOTE | 2020-01-16 09:19 | IPNPDOC ---
Text Note Date of Service The patient was seen on 01/16/20. NOTE Subjective: Patient is a 74-year-old male with a PMHx of Dementia, HTN, GERD who was brought to the emergency room by his command and control Estela due to increased agitation and anxiety at home. As per the command and control, patient was at [facility] on Tuesday for urinary retention and had a Clay catheter placed and he was discharged home. Subsequent day the patient experienced agitation and change in his baseline mentation (less communicative) and was brought to the ER for further evaluation. Patient was seen and examined at the bedside. Patient was seen sitting up in bed. Patient is aware of his name, unsure of place or time, appears to be fidgeting, but answers some questions. Denies any pain. Objective: Vitals (See below) General: Sitting up in bed, does not appear to be in any distress, comfortable, fidgety, awake/alert HEENT: NC, AT CVS: +S1S2 Lungs: There is fair air entry bilaterally without evidence of rhonchi, crackles or wheezing Abdomen: Abdomen remains soft without distention or tenderness Extremities: LE are without edema, - Calf tenderness Assessment and plan: Acute metabolic encephalopathy - likely 2/2 UTI, possibly 2/2 medications, possibly 2/2 dementia - Hx of Dementia; follows with Neurology as an outpatient - Again patient has slept throughout the night; will adjust medications to oral form and adjust timing of medications - No focal neurologic deficits - CT head 01/07: No acute intracranial findings. - s/p Trazodone and Hydroxyzine - c/w Memantine and Donepezil - Lorazepam IV was restarted - c/w Seroquel morning and evening; c/w Paxil - Neurology will evaluate today - s/p antibiotics below UTI - likely 2/2 Catheter placement from Staph Epidermidis - As per history patient became more agitated after Clay catheter was placed - Hemodynamically stable / afebrile - No leukocytosis; CRP continues to trend down - UA appears abnormal; Urine culture 01/07: Staph Epidermidis - CT chest 01/07: No evidence of pneumonia or congestive heart failure. - CT abdomen / pelvis 01/07: No definite acute findings. Examination is limited due to patient motion. - s/p Cefdinir (Completed 7 day course) Normocytic anemia - Hg improved; initially was elevated possibly 2/2 hemoconcentration given poor oral intake - s/p IV fluid hydration today Urinary retention - possibly 2/2 BPH, less likely 2/2 constipation - s/p Clay catheter on 107 AM; continued to experience retention overnight - c/w Tamsulosin - s/p Clay; c/w straight cath PRN - Will need outpatient follow up with Urology for voiding trial s/p Constipation - Has had a BMs - s/p bowel regimen HTN - BP remains well controlled - s/p HCTZ - c/w Amlodipine at BID dosing GERD - c/w PPI DVT prophylaxis - c/w Lovenox Disposition: - Awaiting clinical improvement VS,Brittnee, I+O VS, Brittnee I+O Laboratory Tests 01/16/20 06:17 Vital Signs Date Time Temp Pulse Resp B/P (MAP) Pulse Ox O2 Delivery O2 Flow Rate FiO2 01/16/20 06:00 98.4 99 18 141/86 (104) 97 Room Air I&O- Last 24 Hours up to 6 AM 01/16/20 05:59 Intake Total 120 ml Output Total 1950 ml Balance -1830 ml PRINCESS PANIAGUA MD Jan 16, 2020 09:19
[2020-01-16] MEDS: NS 1,000 ML IV SCH (09:28)
[2020-01-16] MEDS: QUEtiapine FUMARATE 12.5 MG HALF-TAB PO SCH (09:28)
[2020-01-16] MEDS: PANTOPRAZOLE 40MG TAB (PROTONIX) PO SCH (09:28)
[2020-01-16] MEDS: POTASSIUM CHLORIDE 10 MEQ SR TABLET PO SCH (09:28)
[2020-01-16] MEDS: PARoxetine 10MG TABLET PO SCH (09:29)
[2020-01-16] MEDS: TAMSULOSIN 0.4 MG CAP PO SCH (13:10)
[2020-01-16] MEDS: DONEPEZIL 5 MG TAB PO SCH (13:10)
[2020-01-16 14:40] VITALS: BP 139/88
[2020-01-16] MEDS: QUEtiapine FUMARATE 25 MG TAB PO SCH (18:00)
[2020-01-16] MEDS: ACETAMINOPHEN TAB 650MG DOSE (2X325MG) PO PRN (20:06)
[2020-01-16] MEDS: HALOPERIDOL 5MG/ML VIAL (J1630 PER 1) IV PRN (20:06)
[2020-01-16 22:00] VITALS: BP 148/81
[2020-01-17] MEDS: NS 1,000 ML IV SCH ×2 (00:34→18:15)
[2020-01-17 06:40] LABS: BASO % 0.6 % (0.0-1.0); EOS # 0.1 10^3/uL (0.0-0.5); EOS % 2.1 % (0.0-3.0); HEMATOCRIT 38.8 % (42.0-52.0); HEMOGLOBIN 13.6 g/dl (13.5-17.5); LYMPH # 1.5 10^3/uL (1.5-5.0); LYMPH % 24.5 % (24.0-44.0); MEAN CORPUSCULAR HEMOGLOBIN 29.8 pg (27.0-33.0); MEAN CORPUSCULAR HGB CONC 35.1 g/dl (32.0-36.5); MEAN CORPUSCULAR VOLUME 84.9 fl (80.0-96.0); MONO # 0.4 10^3/uL (0.0-0.8); NEUTROPHILS # 4.1 10^3/uL (1.5-8.5); NEUTROPHILS % 66.5 % (36.0-66.0); PLATELET COUNT, AUTOMATED 200 10^3/uL (150-450); RED BLOOD COUNT 4.57 10^6/uL (4.30-6.10); WHITE BLOOD COUNT 6.2 10^3/uL (4.0-10.0)
[2020-01-17 07:08] LABS: BLOOD UREA NITROGEN 15 MG/DL (7-18); C REACTIVE PROTEIN QUANTITATIV 0.86 MG/DL (0.00-0.30); CALCIUM LEVEL 8.8 MG/DL (8.8-10.2); CARBON DIOXIDE LEVEL 20 MEQ/L (21-32); CHLORIDE LEVEL 117 MEQ/L (98-107); CREATININE FOR GFR 0.79 MG/DL (0.70-1.30); GLOMERULAR FILTRATION RATE > 60.0 (>42); GLUCOSE, FASTING 114 MG/DL (70-100); POTASSIUM SERUM 3.9 MEQ/L (3.5-5.1); SODIUM LEVEL 145 MEQ/L (136-145)
--- NOTE | 2020-01-17 09:54 | IPNPDOC ---
Text Note Date of Service The patient was seen on 01/17/20. NOTE Subjective: Patient is a 74-year-old male with a PMHx of Dementia, HTN, GERD who was brought to the emergency room by his oil expert Estela due to increased agitation and anxiety at home. As per the oil expert, patient was at [facility] on Tuesday for urinary retention and had a Clay catheter placed and he was discharged home. Subsequent day the patient experienced agitation and change in his baseline mentation (less communicative) and was brought to the ER for further evaluation. Patient was seen and examined at the bedside. Patient appears calm. Denies any pain. Patient's and health care provider were at bedside, addressed all her questions and concerns. Objective: Vitals (See below) General: Lying in bed, does not appear to be in any distress, comfortable, asleep but arousable to physical and verbal stimuli HEENT: NC, AT CVS: +S1S2 Lungs: Auscultation is free of rhonchi, wheezing or crackles Abdomen: Nondistended, without any tenderness or distention Extremities: No edema, - Calf tenderness Assessment and plan: Acute metabolic encephalopathy - likely 2/2 UTI, possibly 2/2 medications, possibly 2/2 dementia - Hx of Dementia; follows with Neurology as an outpatient - Patient has had an uneventful day and night yesterday - No focal neurologic deficits - CT head 01/07: No acute intracranial findings. - s/p Trazodone and Hydroxyzine - c/w Memantine and Donepezil - c/w Lorazepam IV - c/w Seroquel morning and evening; c/w Paxil - Discussed with Neurology and they will evaluate today - s/p antibiotics below s/p UTI - likely 2/2 Catheter placement from Staph Epidermidis - As per history patient became more agitated after Clay catheter was placed - Hemodynamically stable / afebrile - No leukocytosis; CRP continues to trend down - UA appears abnormal; Urine culture 01/07: Staph Epidermidis - CT chest 01/07: No evidence of pneumonia or congestive heart failure. - CT abdomen / pelvis 01/07: No definite acute findings. Examination is limited due to patient motion. - s/p Cefdinir (Completed 7 day course) Normocytic anemia - Hg improved; initially was elevated possibly 2/2 hemoconcentration given poor oral intake - s/p IV fluid hydration today Urinary retention - possibly 2/2 BPH, less likely 2/2 constipation - s/p Clay catheter on 10 AM; continued to experience retention overnight - c/w Tamsulosin - s/p Clay; c/w straight cath PRN - Will need outpatient follow up with Urology for voiding trial s/p Constipation - Has had a BMs - s/p bowel regimen HTN - BP remains well controlled - s/p HCTZ - c/w Amlodipine at BID dosing GERD - c/w PPI DVT prophylaxis - c/w Lovenox Disposition: - Awaiting clinical improvement - Discussed with ; she still adamant that patient should be transitioned once he is ready VS,Brittnee, I+O VS, Brittnee, I+O Laboratory Tests 01/17/20 06:24 Vital Signs Date Time Temp Pulse Resp B/P (MAP) Pulse Ox O2 Delivery O2 Flow Rate FiO2 01/16/20 22:00 98.6 86 20 148/81 (103) 99 Room Air I&O- Last 24 Hours up to 6 AM 01/17/20 06:00 Intake Total 0 ml Output Total 1350 ml Balance -1350 ml PRINCESS PANIAGUA MD Jan 17, 2020 09:54
[2020-01-17] MEDS: GABAPENTIN 100 MG CAP PO SCH ×3 (11:40→21:13)
[2020-01-17] MEDS: PANTOPRAZOLE 40MG TAB (PROTONIX) PO SCH (11:40)
[2020-01-17] MEDS: PARoxetine 10MG TABLET PO SCH (11:40)
[2020-01-17] MEDS: MIRALAX *UNIT DOSE* 17GM PACKET PO PRN (11:40)
[2020-01-17] MEDS: POTASSIUM CHLORIDE 10 MEQ SR TABLET PO SCH (11:41)
[2020-01-17] MEDS: QUEtiapine FUMARATE 12.5 MG HALF-TAB PO SCH (11:41)
[2020-01-17] MEDS: amLODIPine 5 MG TAB PO SCH ×2 (11:41→21:26)
[2020-01-17] MEDS: ENOXAPARIN 40MG/0.4ML SYRINGE (J1650 PER 10MG) SC SCH (11:42)
[2020-01-17] MEDS: MEMANTINE 5MG TABLET (NAMENDA) PO SCH ×2 (11:42→21:13)
[2020-01-17] MEDS: LORazepam 2 MG/ML VIAL IV PRN (12:59)
[2020-01-17] MEDS: TAMSULOSIN 0.4 MG CAP PO SCH ×2 (18:15→21:13)
[2020-01-17] MEDS: DONEPEZIL 5 MG TAB PO SCH ×2 (18:15→21:12)
[2020-01-17] MEDS: QUEtiapine FUMARATE 25 MG TAB PO SCH (21:13)
[2020-01-18] MEDS: LORazepam 2 MG/ML VIAL IV PRN ×2 (01:14→21:37)
[2020-01-18] MEDS ORDERED: diphenhydrAMINE 50MG/ML VIAL (J1200) IV ONE (03:00)
[2020-01-18 04:30] VITALS: BP 133/83
[2020-01-18] MEDS ORDERED: HALOPERIDOL 5MG/ML VIAL (J1630 PER 1) IV ONE (04:30)
[2020-01-18] MEDS ORDERED: LORazepam 2 MG/ML VIAL IV STA (05:37)
[2020-01-18 08:02] LABS: BASO % 0.3 % (0.0-1.0); EOS # 0.1 10^3/uL (0.0-0.5); EOS % 0.8 % (0.0-3.0); HEMATOCRIT 36.7 % (42.0-52.0); HEMOGLOBIN 12.9 g/dl (13.5-17.5); LYMPH # 1.2 10^3/uL (1.5-5.0); LYMPH % 16.7 % (24.0-44.0); MEAN CORPUSCULAR HEMOGLOBIN 30.2 pg (27.0-33.0); MEAN CORPUSCULAR HGB CONC 35.1 g/dl (32.0-36.5); MEAN CORPUSCULAR VOLUME 85.9 fl (80.0-96.0); MONO # 0.4 10^3/uL (0.0-0.8); MONO % 4.8 % (0.0-5.0); NEUTROPHILS # 5.6 10^3/uL (1.5-8.5); NEUTROPHILS % 76.8 % (36.0-66.0); PLATELET COUNT, AUTOMATED 203 10^3/uL (150-450); RED BLOOD COUNT 4.27 10^6/uL (4.30-6.10); WHITE BLOOD COUNT 7.3 10^3/uL (4.0-10.0)
[2020-01-18 08:31] LABS: BLOOD UREA NITROGEN 16 MG/DL (7-18); CALCIUM LEVEL 8.7 MG/DL (8.8-10.2); CARBON DIOXIDE LEVEL 19 MEQ/L (21-32); CHLORIDE LEVEL 116 MEQ/L (98-107); CREATININE FOR GFR 0.86 MG/DL (0.70-1.30); GLOMERULAR FILTRATION RATE > 60.0 (>42); GLUCOSE, FASTING 100 MG/DL (70-100); MAGNESIUM LEVEL 1.9 MG/DL (1.8-2.4); POTASSIUM SERUM 3.4 MEQ/L (3.5-5.1); SODIUM LEVEL 146 MEQ/L (136-145)
[2020-01-18] MEDS: amLODIPine 5 MG TAB PO SCH ×2 (09:37→20:19)
[2020-01-18] MEDS: POTASSIUM CHLORIDE 10 MEQ SR TABLET PO SCH (09:37)
[2020-01-18] MEDS: GABAPENTIN 100 MG CAP PO SCH ×3 (09:37→20:19)
[2020-01-18] MEDS: MEMANTINE 5MG TABLET (NAMENDA) PO SCH ×2 (09:37→20:19)
[2020-01-18] MEDS: PARoxetine 10MG TABLET PO SCH (09:38)
[2020-01-18] MEDS: QUEtiapine FUMARATE 12.5 MG HALF-TAB PO SCH (09:38)
[2020-01-18] MEDS: NS 1,000 ML IV SCH (09:38)
[2020-01-18] MEDS: ENOXAPARIN 40MG/0.4ML SYRINGE (J1650 PER 10MG) SC SCH (09:38)
[2020-01-18] MEDS: PANTOPRAZOLE 40MG TAB (PROTONIX) PO SCH (09:38)
--- NOTE | 2020-01-18 11:08 | CR ---
DATE OF CONSULTATION: 01/17/2020 REFERRING PHYSICIAN: Zachary Espinoza MD REASON FOR CONSULTATION: Altered mental status and agitation. HISTORY OF PRESENT ILLNESS: Yoni Zamudio is a 74-year-old man with a history of advanced dementia who lives with his significant other at home and was brought to [facility] due to agitation. He was seen at [facility] last week due to urinary retention with Clay catheter placement. Patient has difficulty communicating and advanced dementia. His cognition worsened even more over the last few days. It became difficult for family to take care of him at home. Patients brother, who was at bedside when I saw him this evening, stated that patient has two children who live out of state and has periodic contact with them. Patients mental status has been declining progressively over the last couple of years. He has a history of dementia for several years. At his baseline, patient would be oriented to self mostly. He was able to recognize his close family members. In the hospital, patient sleeps well since we have started him on Seroquel and added a low dose in the morning. Patient remains calm at night and in the morning, but in the afternoon he becomes agitated and aggressive at times. When I saw him, patient had received Ativan and he was sleeping comfortably. PAST MEDICAL HISTORY: Advanced dementia, hypotension. SOCIAL HISTORY: He denies smoking, alcohol, or illicit drugs. FAMILY HISTORY: There is no family history of dementia. His half sibling who is 90 years old does not have dementia. His younger brother does not have dementia. Parents, uncles, aunts did not have dementia. ALLERGIES: No known drug allergies. REVIEW OF SYSTEMS: All systems are reviewed with patients brother and found to be noncontributory except as mentioned in history of present illness. PHYSICAL EXAMINATION: Temperature 98.6, pulse 86, respiratory rate 20, blood pressure 148/81. Heart: Regular rate and rhythm. Lungs: Clear to auscultation. Abdomen: Soft, nontender, nondistended. No pedal edema. Patient is sleeping currently and difficult to arouse. Motor, sensory, cerebellar, and cognitive testing could not be performed. CURRENT MEDICATIONS: - quetiapine 12.5 mg in the morning and 25 mg by mouth nightly - Ativan 0.5 mg twice a day as needed - Paxil 10 mg by mouth in the morning - verapamil 10 mg in the morning - memantine 10 mg by mouth twice a day - amlodipine 5 mg by mouth twice a day - gabapentin 100 mg by mouth three times a day - Flomax 0.4 mg by mouth daily - Lovenox 40 mg subcutaneous once a day DIAGNOSTIC STUDIES: CT scan of head showed severe atrophy and proportionately enlarged ventricles. Chest x-ray was unremarkable. CT scan of chest was also unremarkable. CT scan of abdomen and pelvis was affected by motion but no acute findings. CBC showed hemoglobin 12.9 with normal WBCs and platelet count. Urinalysis showed too numerous RBCs, 3+ bacteria. ASSESSMENT: 1. Delirium with advanced dementia. 2. Agitation and behavioral changes related to delirium and advanced dementia. PLAN: 1. Increase Seroquel to 50 mg by mouth nightly. 2. Continue Seroquel 12.5 mg in the morning and Paxil 10 mg in the morning. 3. Consider trying Haldol or Abilify in daytime if his agitation continues. 4. Check vitamin B12, vitamin B1, serum ammonia, thyroid stimulating hormone (TSH), etc. MTDD
--- NOTE | 2020-01-18 12:39 | IPNPDOC ---
Text Note Date of Service The patient was seen on 01/18/20. NOTE Subjective: Patient sleeping deeply, moving his limbs but did not open eyes or respond when called, He was agitated overnight and received, IV ativan, IV haldol and IV benadryl rukhsana probably sleep all day long. As per brother at bedside has not been eating anything and patient reports that not hungry. Physical Exam; Vitals As below. General: Lying in bed, does not appear to be in any distress, comfortable, asleep HEENT: NC, AT, moist mucous membranes, CVS: +S1S2 regular, no rub, no murmur or gallop. Lungs: Auscultation is free of rhonchi, wheezing or crackles Abdomen: Nondistended, without any tenderness, normal bowel sounds. Extremities: No edema, No Calf tenderness Labs and radiology reviewed. Assessment and plan: Patient is a 74-year-old male with a PMHx of Dementia, HTN, GERD who was brought to the emergency room by his clin nurse spec Estela due to increased agitation and anxiety at home. As per the clin nurse spec, patient was at [facility] on Tuesday for urinary retention and had a Clay catheter placed and he was discharged home. Subsequent day the patient experienced agitation and change in his baseline mentation (less communicative) and was brought to the ER for further evaluation. Acute metabolic encephalopathy on the back ground of dementia. likely 2/2 UTI, and medications CT head 01/07: No acute intracranial findings. s/p Trazodone and Hydroxyzine On Memantine and Donepezil c/w Lorazepam IV c/w Seroquel morning and evening; c/w Paxil will make olanzepine available for extreme agitation. Evaluated by Dr Cui. Seroquel dosage adjusted. Advanced Dementia with behavioral issues agitation, seroquel dose adjusted. s/p UTI - likely 2/2 Catheter placement from Staph Epidermidis As per history patient became more agitated after Clay catheter was placed s/p Cefdinir (Completed 7 day course) Acute Urinary retention - possibly 2/2 BPH, less likely 2/2 constipation c/w Tamsulosin s/p Clay; c/w straight cath PRN Will need outpatient follow up with Urology s/p Constipation continue bowel regimen. HTN BP remains well controlled c/w Amlodipine at BID dosing GERD c/w PPI DVT prophylaxis c/w Lovenox Disposition: STR VS,Fishbone, I+O VS, Fishbone, I+O Laboratory Tests 01/18/20 07:46 Vital Signs Date Time Temp Pulse Resp B/P (MAP) Pulse Ox O2 Delivery O2 Flow Rate FiO2 01/18/20 09:37 103 133/83 01/18/20 04:30 30 97 Room Air 01/16/20 22:00 98.6 I&O- Last 24 Hours up to 6 AM 01/18/20 05:59 Intake Total 4113 ml Output Total 1770 ml Balance 2343 ml JOSE ALEXANDER MD Jan 18, 2020 12:39
[2020-01-18 14:00] VITALS: BP 122/76
[2020-01-18] MEDS: TAMSULOSIN 0.4 MG CAP PO SCH (15:23)
[2020-01-18] MEDS: DONEPEZIL 5 MG TAB PO SCH (15:24)
[2020-01-18] MEDS: QUEtiapine FUMARATE 50 MG TAB PO SCH (18:06)
[2020-01-18] MEDS ORDERED: QUEtiapine FUMARATE 50 MG TAB PO SCH (21:00)
[2020-01-18 22:00] VITALS: BP 143/81
[2020-01-19] MEDS: OLANZapine INTRAMUSCULAR 10MG VIAL IM PRN ×3 (05:27→23:18)
[2020-01-19 06:00] VITALS: BP 141/81
[2020-01-19 07:31] LABS: BASO % 0.6 % (0.0-1.0); EOS # 0.1 10^3/uL (0.0-0.5); HEMOGLOBIN 14.3 g/dl (13.5-17.5); LYMPH # 1.2 10^3/uL (1.5-5.0); LYMPH % 18.7 % (24.0-44.0); MEAN CORPUSCULAR HEMOGLOBIN 30.5 pg (27.0-33.0); MEAN CORPUSCULAR HGB CONC 34.9 g/dl (32.0-36.5); MEAN CORPUSCULAR VOLUME 87.4 fl (80.0-96.0); MONO # 0.3 10^3/uL (0.0-0.8); MONO % 5.1 % (0.0-5.0); NEUTROPHILS # 4.8 10^3/uL (1.5-8.5); NEUTROPHILS % 73.1 % (36.0-66.0); PLATELET COUNT, AUTOMATED 200 10^3/uL (150-450); RED BLOOD COUNT 4.69 10^6/uL (4.30-6.10); WHITE BLOOD COUNT 6.6 10^3/uL (4.0-10.0)
[2020-01-19 08:01] LABS: BLOOD UREA NITROGEN 16 MG/DL (7-18); CALCIUM LEVEL 9.5 MG/DL (8.8-10.2); CARBON DIOXIDE LEVEL 23 MEQ/L (21-32); CHLORIDE LEVEL 114 MEQ/L (98-107); CREATININE FOR GFR 0.78 MG/DL (0.70-1.30); GLOMERULAR FILTRATION RATE > 60.0 (>42); GLUCOSE, FASTING 94 MG/DL (70-100); POTASSIUM SERUM 3.9 MEQ/L (3.5-5.1); SODIUM LEVEL 143 MEQ/L (136-145); THYROID STIMULATING HORMONE 0.876 uIU/ML (0.358-3.740)
[2020-01-19] MEDS: PARoxetine 10MG TABLET PO SCH (11:00)
[2020-01-19] MEDS: PANTOPRAZOLE 40MG TAB (PROTONIX) PO SCH (11:00)
[2020-01-19] MEDS: POTASSIUM CHLORIDE 10 MEQ SR TABLET PO SCH (11:00)
[2020-01-19] MEDS: ENOXAPARIN 40MG/0.4ML SYRINGE (J1650 PER 10MG) SC SCH (11:00)
[2020-01-19] MEDS: GABAPENTIN 100 MG CAP PO SCH ×3 (11:01→20:47)
[2020-01-19] MEDS: QUEtiapine FUMARATE 12.5 MG HALF-TAB PO SCH (11:01)
[2020-01-19] MEDS: MEMANTINE 5MG TABLET (NAMENDA) PO SCH ×2 (11:01→20:47)
[2020-01-19] MEDS: amLODIPine 5 MG TAB PO SCH ×2 (11:03→20:47)
--- NOTE | 2020-01-19 11:39 | IPNPDOC ---
Text Note Date of Service The patient was seen on 01/19/20. NOTE Subjective: Awake and alert, mumbling answers to questions, fidgeting in the bed and trying to pull the blanket and covers over his head. Refusing food. Did not even open his mouth when food was offered. Says not ready for food. Physical Exam; Vitals As below. General: sitting up in bed, does not appear to be in any distress, fidgeting with the blanket and sheets. HEENT: NC, AT, moist mucous membranes, CVS: +S1S2 regular, no rub, no murmur or gallop. Lungs: Auscultation is free of rhonchi, wheezing or crackles Abdomen: Nondistended, without any tenderness, normal bowel sounds. Extremities: No edema, No Calf tenderness Labs and radiology reviewed. Assessment and plan: Patient is a 74-year-old male with a PMHx of Dementia, HTN, GERD who was brought to the emergency room by his activity coordinator Estela due to increased agitation and anxiety at home. As per the activity coordinator, patient was at [facility] on Tuesday for urinary retention and had a Clay catheter placed and he was discharged home. Subsequent day the patient experienced agitation and change in his baseline mentation (less communicative) and was brought to the ER for further evaluation. Acute metabolic encephalopathy on the back ground of dementia. likely 2/2 UTI, and medications CT head 01/07: No acute intracranial findings. s/p Trazodone and Hydroxyzine On Memantine and Donepezil c/w Lorazepam IV c/w Seroquel morning and evening; c/w Paxil will make olanzepine available for extreme agitation. Evaluated by Dr Cui. Seroquel dosage adjusted. Advanced Dementia with behavioral issues agitation, seroquel dose adjusted. s/p UTI - likely 2/2 Catheter placement from Staph Epidermidis As per history patient became more agitated after Clay catheter was placed s/p Cefdinir (Completed 7 day course) Acute Urinary retention - possibly 2/2 BPH, less likely 2/2 constipation c/w Tamsulosin s/p Clay; c/w straight cath PRN Will need outpatient follow up with Urology s/p Constipation continue bowel regimen. HTN BP remains well controlled c/w Amlodipine at BID dosing GERD c/w PPI DVT prophylaxis c/w Lovenox Disposition: STR VS,Fishbone, I+O VS, Fishbone, I+O Laboratory Tests 01/19/20 07:08 Vital Signs Date Time Temp Pulse Resp B/P (MAP) Pulse Ox O2 Delivery O2 Flow Rate FiO2 01/19/20 11:03 111 170/132 01/19/20 06:00 97.3 18 100 Room Air I&O- Last 24 Hours up to 6 AM 01/19/20 06:00 Intake Total 990 ml Output Total 4300 ml Balance -3310 ml JOSE ALEXANDER MD Jan 19, 2020 11:38
[2020-01-19] MEDS ORDERED: LORazepam 2 MG/ML VIAL As Ordered ONE (12:54)
[2020-01-19] MEDS: LORazepam 2 MG/ML VIAL IV PRN (12:57)
[2020-01-19] MEDS: TAMSULOSIN 0.4 MG CAP PO SCH (12:58)
[2020-01-19 14:00] VITALS: BP 148/86
[2020-01-19] MEDS: DONEPEZIL 5 MG TAB PO SCH (15:39)
[2020-01-19] MEDS: QUEtiapine FUMARATE 50 MG TAB PO SCH (18:26)
[2020-01-19 22:00] VITALS: BP 110/64
[2020-01-20] MEDS ORDERED: LORazepam 2 MG/ML VIAL IM PRN (02:45)
[2020-01-20 06:00] VITALS: BP 133/81
[2020-01-20] MEDS: BISACODYL 10 MG SUPP PR SCH (09:00)
[2020-01-20] MEDS: PARoxetine 10MG TABLET PO SCH ×3 (09:00→12:25)
[2020-01-20] MEDS: PANTOPRAZOLE 40MG TAB (PROTONIX) PO SCH ×3 (09:00→12:26)
[2020-01-20] MEDS: POTASSIUM CHLORIDE 10 MEQ SR TABLET PO SCH ×2 (09:00→09:50)
[2020-01-20] MEDS: MEMANTINE 5MG TABLET (NAMENDA) PO SCH ×2 (09:47→19:40)
[2020-01-20] MEDS: GABAPENTIN 100 MG CAP PO SCH ×3 (09:47→19:40)
[2020-01-20] MEDS: OLANZapine 2.5MG TABLET PO SCH (09:47)
[2020-01-20] MEDS: amLODIPine 5 MG TAB PO SCH ×2 (09:49→19:41)
[2020-01-20] MEDS: ENOXAPARIN 40MG/0.4ML SYRINGE (J1650 PER 10MG) SC SCH (09:50)
--- NOTE | 2020-01-20 11:21 | IPNPDOC ---
Text Note Date of Service The patient was seen on 01/20/20. NOTE Subjective: Awake and alert, mumbling answers to questions, accepting liquids orally. Physical Exam; Vitals As below. General: sitting up in bed, does not appear to be in any distress HEENT: NC, AT, moist mucous membranes, CVS: +S1S2 regular, no rub, no murmur or gallop. Lungs: Auscultation is free of rhonchi, wheezing or crackles Abdomen: Nondistended, without any tenderness, normal bowel sounds. Extremities: No edema, No Calf tenderness Labs and radiology reviewed. Assessment and plan: Patient is a 74-year-old male with a PMHx of Dementia, HTN, GERD who was brought to the emergency room by his senior instructional designer Estela due to increased agitation and anxiety at home. As per the senior instructional designer, patient was at [facility] on Tuesday for urinary retention and had a Clay catheter placed and he was discharged home. Subsequent day the patient experienced agitation and change in his baseline mentation (less communicative) and was brought to the ER for further evaluation. Advanced Dementia with behavioral issues agitation, seroquel dose adjusted. On paroxetine, olanzepine, ativan. On Memantine and Donepezil Evaluated by Dr Cui. Seroquel dosage adjusted. Acute metabolic encephalopathy on the back ground of dementia. likely 2/2 UTI, and medications CT head 01/07: No acute intracranial findings. now resolved. s/p UTI - likely 2/2 Catheter placement from Staph Epidermidis As per history patient became more agitated after Clay catheter was placed s/p Cefdinir (Completed 7 day course) Acute Urinary retention - possibly 2/2 BPH c/w Tamsulosin s/p Clay; c/w straight cath PRN Will need outpatient follow up with Urology s/p Constipation continue bowel regimen. HTN BP remains well controlled c/w Amlodipine at BID dosing GERD c/w PPI DVT prophylaxis c/w Lovenox Disposition: STR VS,Fishbone, I+O VS, Fishbone, I+O Vital Signs Date Time Temp Pulse Resp B/P (MAP) Pulse Ox O2 Delivery O2 Flow Rate FiO2 01/20/20 09:49 75 147/86 01/20/20 06:00 97.3 18 96 Room Air I&O- Last 24 Hours up to 6 AM 01/20/20 06:00 Intake Total 400 ml Output Total 850 ml Balance -450 ml JOSE ALEXANDER MD Jan 20, 2020 11:21
[2020-01-20] MEDS: TAMSULOSIN 0.4 MG CAP PO SCH (13:19)
[2020-01-20 14:00] VITALS: BP 130/84
[2020-01-20] MEDS: OLANZapine INTRAMUSCULAR 10MG VIAL IM PRN ×2 (14:41→20:26)
[2020-01-20] MEDS: DONEPEZIL 5 MG TAB PO SCH (14:43)
[2020-01-20] MEDS: QUEtiapine FUMARATE 50 MG TAB PO SCH (17:56)
[2020-01-21] MEDS: BISACODYL 10 MG SUPP PR SCH (09:00)
[2020-01-21] MEDS: amLODIPine 5 MG TAB PO SCH ×2 (09:00→22:00)
[2020-01-21] MEDS: POTASSIUM CHLORIDE 10 MEQ SR TABLET PO SCH (09:57)
[2020-01-21] MEDS: PANTOPRAZOLE 40MG TAB (PROTONIX) PO SCH (09:57)
[2020-01-21] MEDS: PARoxetine 10MG TABLET PO SCH (09:57)
[2020-01-21] MEDS: GABAPENTIN 100 MG CAP PO SCH ×3 (09:57→22:00)
[2020-01-21] MEDS: MEMANTINE 5MG TABLET (NAMENDA) PO SCH ×2 (09:57→22:00)
[2020-01-21] MEDS: OLANZapine 2.5MG TABLET PO SCH (09:57)
[2020-01-21] MEDS: ENOXAPARIN 40MG/0.4ML SYRINGE (J1650 PER 10MG) SC SCH (09:58)
[2020-01-21 11:43] LABS: VITAMIN B12 LEVEL 293 PG/ML (247-911)
[2020-01-21] MEDS: OLANZapine INTRAMUSCULAR 10MG VIAL IM PRN (13:48)
[2020-01-21] MEDS: TAMSULOSIN 0.4 MG CAP PO SCH (13:49)
[2020-01-21] MEDS: DONEPEZIL 5 MG TAB PO SCH (16:36)
--- NOTE | 2020-01-21 16:42 | IPNPDOC ---
Text Note Date of Service The patient was seen on 01/21/20. NOTE Subjective: Now having some oral intake mostly liquids. Awake and alert, speaks in soft voice, mostly mumbles Physical Exam; Vitals As below. General: sitting up in bed, does not appear to be in any distress HEENT: NC, AT, moist mucous membranes, CVS: +S1S2 regular, no rub, no murmur or gallop. Lungs: Auscultation is free of rhonchi, wheezing or crackles Abdomen: Nondistended, without any tenderness, normal bowel sounds. Extremities: No edema, No Calf tenderness Labs and radiology reviewed. Assessment and plan: Patient is a 74-year-old male with a PMHx of Dementia, HTN, GERD who was brought to the emergency room by his currency examiner Estela due to increased agitation and anxiety at home. As per the currency examiner, patient was at [facility] on Tuesday for urinary retention and had a Clay catheter placed and he was discharged home. Subsequent day the patient experienced agitation and change in his baseline mentation (less communicative) and was brought to the ER for further evaluation. Advanced Dementia with behavioral issues agitation, seroquel dose adjusted. On paroxetine, olanzepine, ativan. On Memantine and Donepezil Evaluated by Dr Cui. Seroquel dosage adjusted. Acute metabolic encephalopathy on the back ground of dementia. likely 2/2 UTI, and medications CT head 01/07: No acute intracranial findings. now resolved. s/p UTI - likely 2/2 Catheter placement from Staph Epidermidis As per history patient became more agitated after Clay catheter was placed s/p Cefdinir (Completed 7 day course) Acute Urinary retention - possibly 2/2 BPH c/w Tamsulosin s/p Clay; c/w straight cath PRN Will need outpatient follow up with Urology if continues to have retention issues. s/p Constipation continue bowel regimen. HTN BP remains well controlled c/w Amlodipine at BID dosing GERD c/w PPI DVT prophylaxis c/w Lovenox Disposition: STR VS,Fishbone, I+O VS, Fishbone, I+O Vital Signs Date Time Temp Pulse Resp B/P (MAP) Pulse Ox O2 Delivery O2 Flow Rate FiO2 01/20/20 14:00 97.5 103 20 130/84 (99) 100 Room Air I&O- Last 24 Hours up to 6 AM 01/21/20 07:00 Intake Total 480 ml Output Total 375 ml Balance 105 ml JOSE ALEXANDER MD Jan 21, 2020 07:45
[2020-01-21] MEDS: QUEtiapine FUMARATE 50 MG TAB PO SCH (17:45)
[2020-01-22] MEDS: amLODIPine 5 MG TAB PO SCH ×2 (09:00→21:00)
[2020-01-22] MEDS: GABAPENTIN 100 MG CAP PO SCH ×3 (09:53→21:00)
[2020-01-22] MEDS: ENOXAPARIN 40MG/0.4ML SYRINGE (J1650 PER 10MG) SC SCH (09:53)
[2020-01-22] MEDS: PARoxetine 10MG TABLET PO SCH (09:53)
[2020-01-22] MEDS: OLANZapine 2.5MG TABLET PO SCH (09:54)
[2020-01-22] MEDS: MEMANTINE 5MG TABLET (NAMENDA) PO SCH ×2 (09:55→21:00)
[2020-01-22] MEDS: PANTOPRAZOLE 40MG TAB (PROTONIX) PO SCH (09:55)
[2020-01-22] MEDS: BISACODYL 10 MG SUPP PR SCH (09:55)
[2020-01-22] MEDS: POTASSIUM CHLORIDE 10 MEQ SR TABLET PO SCH (09:56)
[2020-01-22] MEDS: TAMSULOSIN 0.4 MG CAP PO SCH (12:10)
[2020-01-22] MEDS: OLANZapine INTRAMUSCULAR 10MG VIAL IM PRN (12:10)
[2020-01-22 14:00] VITALS: BP 108/82
[2020-01-22] MEDS: DONEPEZIL 5 MG TAB PO SCH (15:49)
[2020-01-22] MEDS: QUEtiapine FUMARATE 50 MG TAB PO SCH (17:38)
[2020-01-22 22:00] VITALS: BP 111/79
[2020-01-23] MEDS: RAMELTEON 8 MG TAB (ROZEREM) PO SCH ×2 (00:12→17:40)
[2020-01-23 06:00] VITALS: BP 128/79
[2020-01-23] MEDS: BISACODYL 10 MG SUPP PR SCH (09:00)
[2020-01-23] MEDS: ENOXAPARIN 40MG/0.4ML SYRINGE (J1650 PER 10MG) SC SCH (09:34)
[2020-01-23] MEDS: amLODIPine 5 MG TAB PO SCH ×2 (09:34→17:40)
[2020-01-23] MEDS: MEMANTINE 5MG TABLET (NAMENDA) PO SCH ×2 (09:34→17:40)
[2020-01-23] MEDS: PARoxetine 10MG TABLET PO SCH (09:35)
[2020-01-23] MEDS: PANTOPRAZOLE 40MG TAB (PROTONIX) PO SCH (09:35)
[2020-01-23] MEDS: GABAPENTIN 100 MG CAP PO SCH ×3 (09:35→17:41)
[2020-01-23] MEDS: OLANZapine 2.5MG TABLET PO SCH ×2 (09:35→17:39)
[2020-01-23] MEDS: POTASSIUM CHLORIDE 10 MEQ SR TABLET PO SCH (09:35)
[2020-01-23] MEDS: TAMSULOSIN 0.4 MG CAP PO SCH (13:00)
[2020-01-23] MEDS: DONEPEZIL 5 MG TAB PO SCH (17:39)
[2020-01-23] MEDS: QUEtiapine FUMARATE 50 MG TAB PO SCH (17:40)
[2020-01-24 06:00] VITALS: BP 127/78
[2020-01-24] MEDS: BISACODYL 10 MG SUPP PR SCH (09:00)
[2020-01-24] MEDS ORDERED: FLOM0.4C39 PO (09:05)
[2020-01-24] MEDS ORDERED: PARO5TAB PO (09:05)
[2020-01-24] MEDS ORDERED: AMLO1TAB24 PO (09:05)
[2020-01-24] MEDS ORDERED: GABA-1171 PO (09:05)
[2020-01-24] MEDS ORDERED: QUET5TAB PO (09:05)
[2020-01-24] MEDS ORDERED: OLAN2.5T25 PO (09:05)
[2020-01-24] MEDS: PANTOPRAZOLE 40MG TAB (PROTONIX) PO SCH (10:39)
[2020-01-24] MEDS: POTASSIUM CHLORIDE 10 MEQ SR TABLET PO SCH (10:39)
[2020-01-24] MEDS: amLODIPine 5 MG TAB PO SCH ×2 (10:39→18:14)
[2020-01-24] MEDS: GABAPENTIN 100 MG CAP PO SCH ×3 (10:39→18:08)
[2020-01-24] MEDS: OLANZapine 2.5MG TABLET PO SCH ×2 (10:39→18:09)
[2020-01-24] MEDS: MEMANTINE 5MG TABLET (NAMENDA) PO SCH ×2 (10:39→18:09)
[2020-01-24] MEDS: ENOXAPARIN 40MG/0.4ML SYRINGE (J1650 PER 10MG) SC SCH (10:40)
[2020-01-24] MEDS: PARoxetine 10MG TABLET PO SCH (10:40)
[2020-01-24] MEDS: TAMSULOSIN 0.4 MG CAP PO SCH (13:14)
--- NOTE | 2020-01-24 14:49 | DS.PDOC ---
Discharge Summary General Date of Admission Jan 09, 2020 at 00:51 Date of Discharge 01/24/20 Discharge Summary PROCEDURES PERFORMED DURING STAY: [None]. DISCHARGE DIAGNOSES: Advanced dementia with behavioral issues. Acute Metabolic encephalopathy on the back ground of dementia UTi finished treatment. Chronic urinary retention needing daily straight caths. BPH HTN GERD. COMPLICATIONS/CHIEF COMPLAINT: Acute Respiratory Alkalosis, Dementia. HOSPITAL COURSE: Patient is a 74-year-old male with a PMHx of Dementia, HTN, GERD who was brought to the emergency room by his delivery tech Estela due to increased agitation and anxiety at home. As per the delivery tech, patient was at [facility] on Tuesday for urinary retention and had a Clay catheter placed and he was discharged home. Subsequent day the patient experienced agitation and change in his baseline mentation (less communicative) and was brought to the ER for further evaluation. Advanced Dementia with behavioral issues agitation, ing On paroxetine, olanzepine, Memantine and Donepezil ,seroquel Evaluated by Dr Cui. Seroquel dosage adjusted. Acute metabolic encephalopathy on the back ground of dementia. likely 2/2 UTI, and medications CT head 01/07: No acute intracranial findings. now resolved. s/p UTI - likely 2/2 Catheter placement from Staph Epidermidis As per history patient became more agitated after Clay catheter was placed and was trying to pull it out. s/p Cefdinir (Completed 7 day course) Acute Urinary retention - possibly 2/2 BPH c/w Tamsulosin s/p Clay; c/w straight cath PRN Will need outpatient follow up with Urology if continues to have retention issues. s/p Constipation continue bowel regimen. HTN BP remains well controlled c/w Amlodipine at BID dosing GERD c/w PPI DISCHARGE MEDICATIONS: Please see below. ALLERGIES: Please see below. PHYSICAL EXAMINATION ON DISCHARGE: VITAL SIGNS: Please see below. General: sitting up in bed, does not appear to be in any distress HEENT: NC, AT, moist mucous membranes, CVS: +S1S2 regular, no rub, no murmur or gallop. Lungs: Auscultation is free of rhonchi, wheezing or crackles Abdomen: Nondistended, without any tenderness, normal bowel sounds. Extremities: No edema, No Calf tenderness LABORATORY DATA: Please see below. ACTIVITY: [As tolerated]. DIET: As tolerated DISCHARGE PLAN: [facility] DISCHARGE INSTRUCTIONS: Referral to urology if needed DISCHARGE CONDITION: [Stable]. TIME SPENT ON DISCHARGE:35 minutes. Vital Signs/I&Os Vital Signs Date Time Temp Pulse Resp B/P (MAP) Pulse Ox O2 Delivery O2 Flow Rate FiO2 01/24/20 10:39 83 127/78 01/24/20 06:00 97.7 18 98 Room Air I&O- Last 24 Hours up to 6 AM 01/24/20 07:00 Intake Total 660 ml Output Total 1000 ml Balance -340 ml Laboratory Data Labs 24H Laboratory Tests 2 01/24/20 11:12: Coronavirus (COVID-19)(PCR) NEGATIVE Discharge Medications Scheduled Amlodipine Besylate (Amlodipine Besylate) 5 Mg Tablet, 5 MG PO BID Donepezil HCl (Donepezil HCl) 10 Mg Tablet, 10 MG PO DAILY, (Reported) TAKES AROUND 1500 Esomeprazole Magnesium (Esomeprazole Magnesium Dr) 40 Mg Capsule.dr, 40 MG PO DAILY, (Reported) Gabapentin (Gabapentin) 100 Mg Capsule, 100 MG PO TID Memantine HCl (Namenda Xr) 28 Mg Cap, 28 MG PO DAILY, (Reported) Olanzapine (Olanzapine) 2.5 Mg Tablet, 2.5 MG PO BID 9 am , 6 pm Paroxetine (Paroxetine HCl) 10 Mg Tablet, 10 MG PO QAM Quetiapine Fumarate (Quetiapine Fumarate) 50 Mg Tablet, 50 MG PO QPM@1800 Tamsulosin HCl (Flomax) 0.4 Mg Capsule, 0.4 MG PO DAILY@1300 Allergies Coded Allergies: No Known Drug Allergies (Verified Allergy, Unknown, 12/03/19) JOSE ALEXANDER MD Jan 24, 2020 14:49
[2020-01-24] MEDS: DONEPEZIL 5 MG TAB PO SCH (15:41)
[2020-01-24] MEDS: RAMELTEON 8 MG TAB (ROZEREM) PO SCH (18:08)
[2020-01-24] MEDS: QUEtiapine FUMARATE 50 MG TAB PO SCH (18:09)
[2020-01-25 06:00] VITALS: BP 120/73
[2020-01-25] MEDS: ACETAMINOPHEN TAB 650MG DOSE (2X325MG) PO PRN (08:45)
[2020-01-25] MEDS: ENOXAPARIN 40MG/0.4ML SYRINGE (J1650 PER 10MG) SC SCH (08:45)
[2020-01-25 08:46] VITALS: BP 120/73
[2020-01-25] MEDS: amLODIPine 5 MG TAB PO SCH (08:46)
[2020-01-25] MEDS: PANTOPRAZOLE 40MG TAB (PROTONIX) PO SCH (08:46)
[2020-01-25] MEDS: OLANZapine 2.5MG TABLET PO SCH (08:46)
[2020-01-25] MEDS: MEMANTINE 5MG TABLET (NAMENDA) PO SCH (08:46)
[2020-01-25] MEDS: GABAPENTIN 100 MG CAP PO SCH (08:46)
[2020-01-25] MEDS: PARoxetine 10MG TABLET PO SCH (08:47)
[2020-01-25] MEDS: BISACODYL 10 MG SUPP PR SCH (08:47)
== END 2020-01-25 10:45 | DRG 698 ==
LOC: M ED 14:44 → M ED INP 01-09 00:51 → ENRESERV 01-09 01:54 → M MS5PR 01-09 03:01
PROVIDERS: ADMIT Family Medicine; ATTEND Internal Medicine Nephrology
DX: T83.518A Infection and inflammatory reaction due to other urinary catheter, initial encounter (principal); G93.41 Metabolic encephalopathy; N39.0 Urinary tract infection, site not specified; F03.91 Unspecified dementia, unspecified severity, with behavioral disturbance; I10 Essential (primary) hypertension; N40.0 Benign prostatic hyperplasia without lower urinary tract symptoms; R33.9 Retention of urine, unspecified; K21.9 Gastro-esophageal reflux disease without esophagitis; K59.00 Constipation, unspecified; Z79.899 Other long term (current) drug therapy; D64.9 Anemia, unspecified; Y84.6 Urinary catheterization as the cause of abnormal reaction of the patient, or of later complication, without mention of misadventure at the time of the procedure

== ENCOUNTER → 2020-02-04 | Outpatient (REF) | payer MEDICARE ==
[~2020-02-04] MED LIST changes: +AMLO1TAB24 PO; +DONE10TA90 PO; +GABA-1171 PO; +OLAN2.5T25 PO; +PARO5TAB PO; +QUET5TAB PO
[2020-02-04 11:56] LABS: APPEARANCE, URINE MANUAL TURBID (CLEAR); BILIRUBIN, URINE MANUAL NEGATIVE (NEGATIVE); COLOR, URINE MANUAL YELLOW (YELLOW); GLUCOSE, URINE (UA) MANUAL NEGATIVE (NEGATIVE); KETONE, URINE MANUAL NEGATIVE (NEGATIVE); PROTEIN, URINE MANUAL 3+ mg/dL (NEGATIVE); UROBILINOGEN, URINE MANUAL NORMAL (NORMAL)
[2020-02-04 11:57] LABS: BLOOD URINE MANUAL POSITIVE (NEGATIVE); LEUKOCYTE ESTERASE, URINE MAN POSITIVE (NEGATIVE); NITRITE, URINE MANUAL NEGATIVE (NEGATIVE); SQUAMOUS EPITHELIAL CELL URINE NONE SEEN /hpf (SMALL AMT); WBC, URINE TNTC /hpf (0-3)
[2020-02-04 11:58] LABS: BACTERIA, URINE LARGE AMOUNT; HYALINE CAST, URINE NONE SEEN /lpf (0-1)
== END ==
LOC: SKLAB7 11:19
DX: R82.79 Other abnormal findings on microbiological examination of urine (principal)

== ENCOUNTER → 2020-02-05 | Outpatient (REF) | payer MEDICARE ==
[~2020-02-05] MED LIST changes: +ACET325T43 PO; +FAMO40TA3 PO; +MACR100C43 PO; +NAME10TA PO; +NEUR300C PO; +QUET1TAB7 PO; +REME15TA PO; +SERT25TA85 PO
[2020-02-05 09:02] LABS: HEMATOCRIT 35.4 % (42.0-52.0); HEMOGLOBIN 12.3 g/dl (13.5-17.5); MEAN CORPUSCULAR HEMOGLOBIN 30.8 pg (27.0-33.0); MEAN CORPUSCULAR HGB CONC 34.7 g/dl (32.0-36.5); MEAN CORPUSCULAR VOLUME 88.7 fl (80.0-96.0); PLATELET COUNT, AUTOMATED 191 10^3/uL (150-450); RED BLOOD COUNT 3.99 10^6/uL (4.30-6.10); WHITE BLOOD COUNT 7.4 10^3/uL (4.0-10.0)
[2020-02-05 09:24] LABS: BLOOD UREA NITROGEN 26 MG/DL (7-18); CARBON DIOXIDE LEVEL 29 MEQ/L (21-32); CHLORIDE LEVEL 108 MEQ/L (98-107); CREATININE FOR GFR 1.02 MG/DL (0.70-1.30); GLOMERULAR FILTRATION RATE > 60.0 (>42); GLUCOSE, FASTING 103 MG/DL (70-100); POTASSIUM SERUM 3.4 MEQ/L (3.5-5.1); SODIUM LEVEL 143 MEQ/L (136-145)
== END ==
LOC: SKLAB7 07:00
DX: R63.0 Anorexia (principal)

== ENCOUNTER 2020-02-08 09:23 | Inpatient (IN) | payer MEDICARE ==
[~2020-02-08] VITALS: Ht 188 cm; Wt 75.7 kg
[~2020-02-08 09:23] MED LIST changes: -ACET325T43 PO; -FAMO40TA3 PO; -MACR100C43 PO; -NAME10TA PO; -NEUR300C PO; -QUET1TAB7 PO; -REME15TA PO; -SERT25TA85 PO
[2020-02-08] MEDS ORDERED: REME15TA PO (11:07)
[2020-02-08] MEDS ORDERED: SERT25TA85 PO (11:07)
[2020-02-08] MEDS ORDERED: NAME10TA PO (11:07)
[2020-02-08] MEDS ORDERED: GABA-843 PO (11:07)
[2020-02-08] MEDS ORDERED: NEUR300C PO (11:07)
[2020-02-08] MEDS ORDERED: MACR100C43 PO (11:07)
[2020-02-08] MEDS ORDERED: FAMO40TA3 PO (11:09)
[2020-02-08] MEDS ORDERED: QUET1TAB7 PO (11:09)
[2020-02-08] MEDS ORDERED: ACET325T43 PO (11:12)
[2020-02-08 11:19] LABS: BASO % 0.2 % (0.0-1.0); HEMATOCRIT 39.1 % (42.0-52.0); HEMOGLOBIN 13.9 g/dl (13.5-17.5); LYMPH # 0.8 10^3/uL (1.5-5.0); LYMPH % 4.7 % (24.0-44.0); MEAN CORPUSCULAR HEMOGLOBIN 30.8 pg (27.0-33.0); MEAN CORPUSCULAR HGB CONC 35.5 g/dl (32.0-36.5); MEAN CORPUSCULAR VOLUME 86.7 fl (80.0-96.0); MONO # 0.7 10^3/uL (0.0-0.8); MONO % 4.6 % (0.0-5.0); NEUTROPHILS # 14.4 10^3/uL (1.5-8.5); NEUTROPHILS % 90.1 % (36.0-66.0); PLATELET COUNT, AUTOMATED 198 10^3/uL (150-450); RED BLOOD COUNT 4.51 10^6/uL (4.30-6.10)
[2020-02-08] MEDS ORDERED: ISOVUE-370 76% 100ML VIAL As Ordered ONE (11:22)
[2020-02-08 11:52] LABS: ERYTHROCYTE SEDIMENTATION RATE 53 mm/hr (0-20)
--- NOTE | 2020-02-08 12:35 | REP ---
INDICATION: R jaw pain, redness, swelling, r/o abscess. COMPARISON: None. TECHNIQUE: 75 mL of intravenous Isovue 370 is administered. Helical scanning is acquired. 3 mm axial images re-formatted. Coronal and sagittal 3 mm MPR images are generated. FINDINGS: Digital preliminary brass cutter radiograph is unremarkable. The lung apices are clear. The visualized superior mediastinal structures show vascular calcification but are otherwise intact. Thyroid lobes are normal and symmetric. The submandibular glands are small and symmetric. The right parotid gland is enlarged compared to the left and shows heterogeneous enhancement consistent with sialadenitis. No parotid duct stone is appreciated. No parotid mass lesion is seen. There is no evidence of abscess. There is some inflammatory thickening of the platysma on the right. IMPRESSION: There is swelling and heterogeneous enhancement in the right parotid gland consistent with parotitis. Some inflammation is and thickening is seen in the right platysma. No abscess is seen. No evidence of mass or adenopathy. <Electronically signed by Fredy Davis > 02/08/20 2198
[2020-02-08] MEDS ORDERED: KETOROLAC 30 MG/ML 1ML VIAL IV ONE (13:30)
[2020-02-08] MEDS ORDERED: AMPICILLIN SOD/SULBACTAM SOD 3 GM in D5W MINI-BAG PLUS 100 ML IV ONE (13:45)
[2020-02-08] MEDS ORDERED: NS 2,230 ML in IV 1 EA IV ONE (13:45)
[2020-02-08] MEDS: ACETAMINOPHEN 500 MG TAB PO ONE ×2 (14:02→14:09)
[2020-02-08] MEDS ORDERED: ACETAMINOPHEN *IV* 650 MG in IV 1 EA IV ONE (15:00)
--- NOTE | 2020-02-08 15:08 | HPEPDOC ---
[facility] Medical History & Physical Date of Admission Feb 08, 2020 Date of Service: Feb 08, 2020 Attending Physician: HORACIO HERNANDEZ MD History and Physical CHIEF COMPLAINT: Pain in right jaw HISTORY OF PRESENT ILLNESS: Patient unable to give proper history due to dementia. Accompanied by keep home sitter who stated patient has not slept for 24 hours. Patient was seen previously on 01/09/20 for complaints of a UTI. Noticed to have increased swelling on right side and noticed to be touching right side of face frequently. Previous note from 01/09/20 states that patient was brought in by orderly Estela due to increased agitation and anxiety at home. Was seen 2 days prior for urinary retention where an indwelling Clay was placed. According to Estela, patient has baseline dementia and difficulty communicating but noticed over those past 2 days that this worsened and he wasn't as commun icative. When she is around he is able to calm down more and be less agitated and anxious. Patient presented to ER and once again was anxious. Neck CT Angiography was obtained showed swelling and heterogeneous enhancement in the right parotid gland consistent w/ parotitis. Patient received 3 g of Unison w/ 3 L of IV fluid. Patient was admitted for further evaluation and management by hospitalist medicine. PAST MEDICAL HISTORY: 1. Advanced Dementia w/ Neurology Evaluation on 01/17/2020 2. Hypertension 3. GERD PAST SURGICAL HISTORY: Unable to obtain past surgical history SOCIAL HISTORY: Unable to obtain social history. Previous notes have stated that patient denies using alcohol, smoking, tobacco, or any recreational drugs FAMILY HISTORY: Unable to obtain family history ALLERGIES: Please see below. REVIEW OF SYSTEMS: Unable to obtain ROS due to patient's dementia HOME MEDICATIONS: Please see below. PHYSICAL EXAMINATION: VITAL SIGNS: Temperature 98.7, pulse 93, respiratory rate 18, blood pressure 135/62, pulse oximetry 98% on room air. GENERAL APPEARANCE: Patient in mild acute distress, is anxious and agitated HEENT: Right cheek enlarged and erythematous, painful to light touch CARDIOVASCULAR: Unable to assess LUNGS: Unable to assess PSYCHIATRIC: Alert and oriented x0, patient anxious LABORATORY DATA: See below. IMAGING: -Neck CT on 02/08/[address] Davis showed swelling and heterogeneous enhancement in the right parotid gland consistent w/ parotitis. Some i nflammation is and thickening is seen in the right platysma, no abscess is seen, no evidence of mass or adenopathy. MICROBIOLOGY: Please see below. ASSESSMENT: Yoni Zamudio is a 74 yr old male w/ PMHx of Dementia, HTN, GERD presents to the ED w/ pain in the right jaw. Patient imaging and elevated ESR, CRP, and LA concerning for parotitis. Evaluated the neck CT, which did not show any abscess formation. PLAN: 1. Pain in right jaw 2/2 parotid infection -Patient's neck CT and elevated ESR, CRP, and LA indicate a possible infection -After evaluating Neck CT, did not show abscess formation -Received 3 g Unison, will continue Unison Q6 hrs, will administer ampicillin/sulbactam and Tylenol -Blood cultures are pending -If no clinical improvement within 24 hours, consider ENT consultation 2. 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 HTN: -Patient's current BP is 135/62, will monitor -Do not currently see any antihypertensive medications in med list 4. DVT Prophylaxis: -Lovanox Dispo: Evaluation of enlarged parotid gland, patient has blood cultures pending, Vital Signs Vital Signs Date Time Temp Pulse Resp B/P (MAP) Pulse Ox O2 Delivery O2 Flow Rate FiO2 02/08/20 13:31 98.7 93 18 98 Room Air 02/08/20 09:53 Laboratory Data Labs 24H Laboratory Tests 2 02/08/20 11:08: Immature Granulocyte % (Auto) 0.4, Neutrophils (%) (Auto) 90.1H, Lymphocytes (%) (Auto) 4.7L, Monocytes (%) (Auto) 4.6, Eosinophils (%) (Auto) 0.0, Basophils (%) (Auto) 0.2, Neutrophils # (Auto) 14.4H, Lymphocytes # (Auto) 0.8L, Monocytes # (Auto) 0.7, Eosinophils # (Auto) 0.0, Basophils # (Auto) 0.0, Nucleated Red Blood Cells % (auto) 0.0, Erythrocyte Sedimentation Rate 53H, C-Reactive Protein, Quantitative 5.72H 02/08/20 11:17: POC Glucose (Misc Panel) 140H, POC Sodium (Misc Panel) 137, POC Potassium (Misc Panel) 3.9, POC Chloride (Misc Panel) 101, POC Total CO2 (Misc Panel) 25.0, POC Blood Urea Nitrogen (Misc Panel 21, POC Ionized Calcium (Misc Panel) 4.6, POC Creatinine (Misc Panel) 0.9, POC Hematocrit (Misc Panel) 38.0 02/08/20 12:49: Lactic Acid Level 2.1*H CBC/BMP Laboratory Tests 02/08/20 11:08 Microbiology Microbiology 02/08/20 Blood Culture, Received Pending 02/08/20 Blood Culture, Received Pending Home Medications Scheduled Amlodipine Besylate (Amlodipine Besylate) 5 Mg Tablet, 5 MG PO BID Donepezil HCl (Donepezil HCl) 10 Mg Tablet, 10 MG PO DAILY Esomeprazole Magnesium (Esomeprazole Magnesium Dr) 40 Mg Capsule.dr, 40 MG PO DAILY Famotidine (Famotidine) 40 Mg Tablet, 40 MG PO DAILY Gabapentin (Gabapentin) 300 Mg Capsule, 150 MG PO BID pt takes oral soln (no med entry for this) Memantine HCl (Namenda) 10 Mg Tablet, 10 MG PO BID Mirtazapine (Remeron) 15 Mg Tablet, 15 MG PO QPM Nitrofurantoin Monohyd/M-Cryst (Macrobid 100 mg Capsule) 100 Mg Capsule, 100 MG PO BID 6 day course, started 02/07/20 Olanzapine (Olanzapine) 2.5 Mg Tablet, 2.5 MG PO BID 9 am , 6 pm Paroxetine (Paroxetine HCl) 10 Mg Tablet, 10 MG PO QAM Quetiapine Fumarate (Quetiapine Fumarate) 50 Mg Tablet, 50 MG PO QPM@1800 Quetiapine Fumarate (Quetiapine Fumarate) 25 Mg Tablet, 25 MG PO DAILY Sertraline Hcl (Sertraline HCl) 25 Mg Tablet, 25 MG PO DAILY Tamsulosin HCl (Flomax) 0.4 Mg Capsule, 0.4 MG PO DAILY@1300 Scheduled PRN Acetaminophen (Mapap) 325 Mg Tablet, 650 MG PO Q4H PRN for PAIN OR FEVER Allergies Coded Allergies: No Known Drug Allergies (Verified Allergy, Unknown, 12/03/19) A-FIB/CHADSVASC A-FIB History Current/History of A-Fib/PAF?: No GME ATTESTATION GME ATTESTATION My faculty preceptor for this patient encounter was physically present during the encounter and was fully available. All aspects of the patient interview, examination, medical decision making process, and medical care plan development were reviewed and approved by the faculty preceptor. The faculty preceptor is aware and concurs with the plan as stated in the body of this note and will attest to such by his/her cosignature. ATTENDING NOTE Patient was seen and examined by me personally with the residents/students. I agree with the above assessment and plan STARR SALEEM OMS-IV Feb 08, 2020 15:08 HORACIO HERNANDEZ MD Feb 11, 2020 11:45
[2020-02-08] MEDS: QUEtiapine FUMARATE 50 MG TAB PO SCH ×3 (18:00→20:48)
[2020-02-08] MEDS: OLANZapine 2.5MG TABLET PO SCH ×3 (18:00→20:48)
[2020-02-08 18:54] VITALS: BP 164/77
[2020-02-08] MEDS: MEMANTINE 5MG TABLET (NAMENDA) PO SCH (20:47)
[2020-02-08] MEDS: AMPICILLIN SOD/SULBACTAM SOD 3 GM in D5W MINI-BAG PLUS 100 ML IV SCH (20:48)
[2020-02-08] MEDS: MIRTAZAPINE 15 MG TAB PO SCH (20:48)
[2020-02-08] MEDS: amLODIPine 5 MG TAB PO SCH (20:49)
[2020-02-08] MEDS ORDERED: ACETAMINOPHEN TAB 650MG DOSE (2X325MG) PO PRN (21:00)
[2020-02-08 22:00] VITALS: BP 155/76
[2020-02-09] MEDS: AMPICILLIN SOD/SULBACTAM SOD 3 GM in D5W MINI-BAG PLUS 100 ML IV SCH ×4 (02:05→20:18)
[2020-02-09 06:00] VITALS: BP 148/73
[2020-02-09 06:39] LABS: HEMATOCRIT 37.2 % (42.0-52.0); HEMOGLOBIN 12.7 g/dl (13.5-17.5); MEAN CORPUSCULAR HEMOGLOBIN 29.7 pg (27.0-33.0); MEAN CORPUSCULAR HGB CONC 34.1 g/dl (32.0-36.5); MEAN CORPUSCULAR VOLUME 86.9 fl (80.0-96.0); PLATELET COUNT, AUTOMATED 198 10^3/uL (150-450); RED BLOOD COUNT 4.28 10^6/uL (4.30-6.10); WHITE BLOOD COUNT 22.7 10^3/uL (4.0-10.0)
[2020-02-09 06:58] LABS: BLOOD UREA NITROGEN 11 MG/DL (7-18); CALCIUM LEVEL 8.3 MG/DL (8.8-10.2); CARBON DIOXIDE LEVEL 25 MEQ/L (21-32); CHLORIDE LEVEL 108 MEQ/L (98-107); GLOMERULAR FILTRATION RATE > 60.0 (>42); GLUCOSE, FASTING 129 MG/DL (70-100); POTASSIUM SERUM 3.3 MEQ/L (3.5-5.1); SODIUM LEVEL 140 MEQ/L (136-145)
[2020-02-09] MEDS: OLANZapine 2.5MG TABLET PO SCH ×2 (08:45→18:00)
[2020-02-09] MEDS: ENOXAPARIN 40MG/0.4ML SYRINGE (J1650 PER 10MG) SC SCH (08:45)
[2020-02-09] MEDS: QUEtiapine FUMARATE 25 MG TAB PO SCH (08:46)
[2020-02-09] MEDS: SERTRALINE HCL 25 MG TABLET PO SCH (08:46)
[2020-02-09] MEDS: MEMANTINE 5MG TABLET (NAMENDA) PO SCH ×2 (08:46→21:00)
[2020-02-09] MEDS: PARoxetine 10MG TABLET PO SCH (08:46)
[2020-02-09] MEDS: FAMOTIDINE 20 MG TAB PO SCH (08:46)
[2020-02-09] MEDS: amLODIPine 5 MG TAB PO SCH ×2 (08:50→21:00)
--- NOTE | 2020-02-09 12:45 | IPNPDOC ---
Text Note Date of Service The patient was seen on 02/09/20. NOTE Subjective: Patient Laying in bed in no distress but pull hand away when i to uched his right jaw. Staff was trying to put in a IV line but he was violently pulling away . He is mumbling which i cannot understand any thing. PHYSICAL EXAMINATION: VITAL SIGNS: As below GENERAL APPEARANCE: Patient is laying down in bed with eyes closed mumbling HEENT: Right cheek enlarged and erythematous, painful to light touch, anicteric eyes CARDIOVASCULAR: S1, s2 regular, no rub/ murmur/ gallop LUNGS: clear to auscultation bilaterally Abdomen: Soft , nontender, bowel sounds normal. PSYCHIATRIC: Awake, mumbling, no orientation, does not follow commands. LABORATORY DATA: Reviewed. IMAGING: Neck CT on 02/08/[address] Davis showed swelling and heterogeneous enhancement in the right parotid gland consistent w/ parotitis. Some inflammation is and thickening is seen in the right platysma, no abscess is seen, no evidence of mass or adenopathy. ASSESSMENT and PLAN : This is a 74 yr old male w/ PMHx of Dementia, HTN, GERD, Chronic urinary retention now with johnston few days ago in the ED was sent from [facility] for right jaw pain and inflammation and was found to have Acute parotitis. Acute Parotitis After evaluating Neck CT, did not show abscess formation will continue Unasyn. Though most probably this is viral will place on full liquids and ensure to ease with eating. 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
[2020-02-09] MEDS: TAMSULOSIN 0.4 MG CAP PO SCH ×2 (12:49→12:53)
[2020-02-09 14:00] VITALS: BP 141/69
[2020-02-09] MEDS: QUEtiapine FUMARATE 50 MG TAB PO SCH (18:00)
[2020-02-09] MEDS ORDERED: OLANZapine INTRAMUSCULAR 10MG VIAL IM ONE (19:00)
[2020-02-09] MEDS: MIRTAZAPINE 15 MG TAB PO SCH (21:00)
[2020-02-09 22:00] VITALS: BP 122/79
[2020-02-10] MEDS: AMPICILLIN SOD/SULBACTAM SOD 3 GM in D5W MINI-BAG PLUS 100 ML IV SCH ×4 (02:21→20:13)
[2020-02-10 06:00] VITALS: BP 114/58
[2020-02-10 06:13] LABS: HEMATOCRIT 35.7 % (42.0-52.0); MEAN CORPUSCULAR HEMOGLOBIN 29.9 pg (27.0-33.0); MEAN CORPUSCULAR HGB CONC 33.6 g/dl (32.0-36.5); MEAN CORPUSCULAR VOLUME 88.8 fl (80.0-96.0); PLATELET COUNT, AUTOMATED 191 10^3/uL (150-450); RED BLOOD COUNT 4.02 10^6/uL (4.30-6.10); WHITE BLOOD COUNT 16.1 10^3/uL (4.0-10.0)
[2020-02-10] MEDS ORDERED: VANCOMYCIN HCL 750 MG, VIAL MATE ADAPTER 1 EACH in D5W 250 ML IV ONE (06:30)
[2020-02-10 06:44] LABS: BLOOD UREA NITROGEN 14 MG/DL (7-18); CALCIUM LEVEL 8.5 MG/DL (8.8-10.2); CARBON DIOXIDE LEVEL 28 MEQ/L (21-32); CHLORIDE LEVEL 106 MEQ/L (98-107); CREATININE FOR GFR 0.73 MG/DL (0.70-1.30); GLOMERULAR FILTRATION RATE > 60.0 (>42); GLUCOSE, FASTING 96 MG/DL (70-100); POTASSIUM SERUM 3.4 MEQ/L (3.5-5.1); SODIUM LEVEL 141 MEQ/L (136-145)
--- NOTE | 2020-02-10 08:11 | IPNPDOC ---
Text Note Date of Service The patient was seen on 02/10/20. NOTE Subjective: Patient sitting up in bed, awake and alert, trying to manipulate the remote, breakfast tray in fron of him Sitter trying to encourage him toeat but he is refusing. right neck redness in less, swelling of the neck is less though still very painful. No fever overnight . Last 24 hours t max was 101.8 PHYSICAL EXAMINATION: VITAL SIGNS: As below GENERAL APPEARANCE: sitting up in bed, alert and mumbling irrelevant things. HEENT: Right cheek enlarged and erythematous, painful to light touch, anicteric eyes, extending down to right neck to the upper part of chest CARDIOVASCULAR: S1, s2 regular, no rub/ murmur/ gallop LUNGS: clear to auscultation bilaterally Abdomen: Soft , nontender, bowel sounds normal. PSYCHIATRIC: Awake, mumbling, no orientation, does not follow commands. LABORATORY DATA: Reviewed. IMAGING: Neck CT on 02/08/[address] Davis showed swelling and heterogeneous enhancement in the right parotid gland consistent w/ parotitis. Some in flammation is and thickening is seen in the right platysma, no abscess is seen, no evidence of mass or adenopathy. ASSESSMENT and PLAN : This is a 74 yr old male w/ PMHx of Dementia, HTN, GERD, Chronic urinary retention now with johnston few days ago in the ED was sent from [facility] for right jaw pain and inflammation and was found to have Acute parotitis. Acute Parotitis After evaluating Neck CT, did not show abscess formation will continue Unasyn and add vancomycin Could be viral also. will check respiratory panel. will place on full liquids and ensure for ease of eating. 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
[2020-02-10] MEDS: VANCOMYCIN HCL 1,000 MG, VIAL MATE ADAPTER 1 EACH in D5W 250 ML IV SCH ×2 (09:53→17:45)
[2020-02-10] MEDS: QUEtiapine FUMARATE 25 MG TAB PO SCH (10:22)
[2020-02-10] MEDS: SERTRALINE HCL 25 MG TABLET PO SCH (10:22)
[2020-02-10] MEDS: PARoxetine 10MG TABLET PO SCH (10:29)
[2020-02-10] MEDS: amLODIPine 5 MG TAB PO SCH ×3 (10:29→20:25)
[2020-02-10] MEDS: MEMANTINE 5MG TABLET (NAMENDA) PO SCH ×3 (10:29→20:25)
[2020-02-10] MEDS: FAMOTIDINE 20 MG TAB PO SCH (10:29)
[2020-02-10] MEDS: OLANZapine 2.5MG TABLET PO SCH ×2 (10:30→17:44)
[2020-02-10] MEDS: ENOXAPARIN 40MG/0.4ML SYRINGE (J1650 PER 10MG) SC SCH (10:30)
[2020-02-10] MEDS: TAMSULOSIN 0.4 MG CAP PO SCH (13:51)
[2020-02-10 14:00] VITALS: BP 112/64
[2020-02-10] MEDS: QUEtiapine FUMARATE 50 MG TAB PO SCH (17:44)
[2020-02-10] MEDS: MIRTAZAPINE 15 MG TAB PO SCH ×2 (20:13→20:25)
[2020-02-10 22:00] VITALS: BP 127/70
[2020-02-11] MEDS: VANCOMYCIN HCL 1,000 MG, VIAL MATE ADAPTER 1 EACH in D5W 250 ML IV SCH ×3 (01:04→17:22)
[2020-02-11] MEDS: AMPICILLIN SOD/SULBACTAM SOD 3 GM in D5W MINI-BAG PLUS 100 ML IV SCH ×4 (02:25→20:14)
[2020-02-11 06:00] VITALS: BP 110/58
[2020-02-11 06:26] LABS: HEMATOCRIT 35.7 % (42.0-52.0); HEMOGLOBIN 12.5 g/dl (13.5-17.5); MEAN CORPUSCULAR HEMOGLOBIN 30.6 pg (27.0-33.0); MEAN CORPUSCULAR VOLUME 87.5 fl (80.0-96.0); PLATELET COUNT, AUTOMATED 226 10^3/uL (150-450); RED BLOOD COUNT 4.08 10^6/uL (4.30-6.10)
[2020-02-11 06:52] LABS: BLOOD UREA NITROGEN 12 MG/DL (7-18); CALCIUM LEVEL 8.9 MG/DL (8.8-10.2); CARBON DIOXIDE LEVEL 29 MEQ/L (21-32); CHLORIDE LEVEL 108 MEQ/L (98-107); CREATININE FOR GFR 0.66 MG/DL (0.70-1.30); GLOMERULAR FILTRATION RATE > 60.0 (>42); GLUCOSE, FASTING 97 MG/DL (70-100); POTASSIUM SERUM 3.8 MEQ/L (3.5-5.1); SODIUM LEVEL 144 MEQ/L (136-145)
[2020-02-11] MEDS: QUEtiapine FUMARATE 25 MG TAB PO SCH (12:20)
[2020-02-11] MEDS: SERTRALINE HCL 25 MG TABLET PO SCH (12:20)
[2020-02-11] MEDS: OLANZapine 2.5MG TABLET PO SCH ×2 (12:20→17:23)
[2020-02-11] MEDS: TAMSULOSIN 0.4 MG CAP PO SCH (12:21)
[2020-02-11] MEDS: FAMOTIDINE 20 MG TAB PO SCH (12:21)
[2020-02-11] MEDS: PARoxetine 10MG TABLET PO SCH (12:21)
[2020-02-11] MEDS: MEMANTINE 5MG TABLET (NAMENDA) PO SCH ×2 (12:21→20:14)
[2020-02-11] MEDS: ENOXAPARIN 40MG/0.4ML SYRINGE (J1650 PER 10MG) SC SCH (12:22)
[2020-02-11] MEDS: amLODIPine 5 MG TAB PO SCH ×2 (12:27→20:18)
--- NOTE | 2020-02-11 13:17 | IPNPDOC ---
Text Note Date of Service The patient was seen on 02/11/20. NOTE Subjective:Patient sleeping this am. As per nurse he was awake all night and fell asleep just a little while ago. No fever. He has not eaten anything since admission. He has refused even Ensure which normally loves as per [facility] staff. His jow and neck less inflamed swelling less. PHYSICAL EXAMINATION: VITAL SIGNS: As below GENERAL APPEARANCE: sleeping, when awake and alert he mumbles irrelevant things. HEENT: Right cheek enlarged and erythematous, painful to light touch, anicteric eyes, extending down to right neck CARDIOVASCULAR: S1, s2 regular, no rub/ murmur/ gallop LUNGS: clear to auscultation bilaterally Abdomen: Soft , nontender, bowel sounds normal. PSYCHIATRIC: mumbling speech, no orientation, does not follow commands. LABORATORY DATA: Reviewed. IMAGING: Neck CT on 02/08/[address] Davis showed swelling and heterogeneous enhancement in the right parotid gland consistent w/ parotitis. Some inflammation is and thickening is seen in the right platysma, no abscess is seen, no evidence of mass or adenopathy. ASSESSMENT and PLAN : This is a 74 yr old male w/ PMHx of Dementia, HTN, GERD, Chronic urinary retention now with johnston few days ago in the ED was sent from [facility] for right jaw pain and inflammation and was found to have Acute parotitis. Acute Parotitis After evaluating Neck CT, did not show abscess formation will continue Unasyn and add vancomycin Could be viral also. will check respiratory panel. full liquids and ensure for ease of eating. 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
[2020-02-11] MEDS: QUEtiapine FUMARATE 50 MG TAB PO SCH (17:23)
[2020-02-11] MEDS: MIRTAZAPINE 15 MG TAB PO SCH (20:15)
[2020-02-11 22:00] VITALS: BP 121/61
[2020-02-12] MEDS: VANCOMYCIN HCL 1,000 MG, VIAL MATE ADAPTER 1 EACH in D5W 250 ML IV SCH ×3 (00:28→23:08)
[2020-02-12] MEDS: RAMELTEON 8 MG TAB (ROZEREM) PO PRN (01:29)
[2020-02-12] MEDS: AMPICILLIN SOD/SULBACTAM SOD 3 GM in D5W MINI-BAG PLUS 100 ML IV SCH ×4 (01:53→20:51)
[2020-02-12 06:00] VITALS: BP 123/88
[2020-02-12 08:10] LABS: HEMATOCRIT 32.2 % (42.0-52.0); HEMOGLOBIN 11.6 g/dl (13.5-17.5); MEAN CORPUSCULAR HEMOGLOBIN 30.4 pg (27.0-33.0); MEAN CORPUSCULAR VOLUME 84.3 fl (80.0-96.0); PLATELET COUNT, AUTOMATED 254 10^3/uL (150-450); RED BLOOD COUNT 3.82 10^6/uL (4.30-6.10); WHITE BLOOD COUNT 5.3 10^3/uL (4.0-10.0)
[2020-02-12 08:37] LABS: BLOOD UREA NITROGEN 14 MG/DL (7-18); CALCIUM LEVEL 8.7 MG/DL (8.8-10.2); CARBON DIOXIDE LEVEL 23 MEQ/L (21-32); CHLORIDE LEVEL 112 MEQ/L (98-107); CREATININE FOR GFR 0.79 MG/DL (0.70-1.30); GLOMERULAR FILTRATION RATE > 60.0 (>42); GLUCOSE, FASTING 97 MG/DL (70-100); SODIUM LEVEL 145 MEQ/L (136-145)
[2020-02-12] MEDS: FAMOTIDINE 20 MG TAB PO SCH (08:47)
[2020-02-12] MEDS: SERTRALINE HCL 25 MG TABLET PO SCH (08:47)
[2020-02-12] MEDS: MEMANTINE 5MG TABLET (NAMENDA) PO SCH ×2 (08:47→20:51)
[2020-02-12] MEDS: PARoxetine 10MG TABLET PO SCH (08:47)
[2020-02-12] MEDS: amLODIPine 5 MG TAB PO SCH ×2 (08:47→20:52)
[2020-02-12] MEDS: QUEtiapine FUMARATE 25 MG TAB PO SCH (08:48)
[2020-02-12] MEDS: OLANZapine 2.5MG TABLET PO SCH ×2 (08:48→17:28)
[2020-02-12] MEDS: ENOXAPARIN 40MG/0.4ML SYRINGE (J1650 PER 10MG) SC SCH (08:49)
--- NOTE | 2020-02-12 12:03 | IPNPDOC ---
Text Note Date of Service The patient was seen on 02/12/20. NOTE Subjective: Patient sleeping this am. As per nurse he was awake all night and fell asleep just a little while ago. When he is awake he talks/ mumbles constantly, Has been refusing food. When tried to be fed he would keep his lips closed and push the hand away. No fever. He has refused even Ensure which normally loves as per [facility] staff. His jow and neck less inflamed swelling less. PHYSICAL EXAMINATION: VITAL SIGNS: As below GENERAL APPEARANCE: sleeping, when awake and alert he mumbles irrelevant things. HEENT: Right cheek and parotid region enlarged no erythema now painful to light touch, anicteric eyes CARDIOVASCULAR: S1, s2 regular, no rub/ murmur/ gallop LUNGS: clear to auscultation bilaterally Abdomen: Soft , nontender, bowel sounds normal. PSYCHIATRIC: mumbling speech, no orientation, does not follow commands. LABORATORY DATA: Reviewed. IMAGING: Neck CT on 02/08/[address] Davis showed swelling and heterogeneous enhancement in the right parotid gland consistent w/ parotitis. Some inflammation is and thickening is seen in the right platysma, no abscess is seen, no evidence of mass or adenopathy. ASSESSMENT and PLAN : This is a 74 yr old male w/ PMHx of Dementia, HTN, GERD, Chronic urinary retention now with johnston few days ago in the ED was sent from [facility] for right jaw pain and inflammation and was found to have Acute parotitis. Acute Parotitis After evaluating Neck CT, did not show abscess formation will continue Unasyn and add vancomycin Could be viral also. Did not allow resp panel check. full liquids and ensure for ease of eating. 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
[2020-02-12] MEDS: TAMSULOSIN 0.4 MG CAP PO SCH (13:00)
[2020-02-12] MEDS: KCL 40MEQ IN D5/NS 1000ML 1,000 ML IV SCH (13:44)
[2020-02-12] MEDS: QUEtiapine FUMARATE 50 MG TAB PO SCH (17:29)
[2020-02-12] MEDS: MIRTAZAPINE 15 MG TAB PO SCH (20:52)
[2020-02-12 22:00] VITALS: BP 135/62
[2020-02-13] MEDS: AMPICILLIN SOD/SULBACTAM SOD 3 GM in D5W MINI-BAG PLUS 100 ML IV SCH ×4 (02:51→20:09)
[2020-02-13 06:00] VITALS: BP 110/64
[2020-02-13] MEDS: KCL 40MEQ IN D5/NS 1000ML 1,000 ML IV SCH ×3 (06:27→21:42)
[2020-02-13 06:39] LABS: HEMOGLOBIN 11.2 g/dl (13.5-17.5); MEAN CORPUSCULAR HEMOGLOBIN 29.7 pg (27.0-33.0); MEAN CORPUSCULAR HGB CONC 33.9 g/dl (32.0-36.5); MEAN CORPUSCULAR VOLUME 87.5 fl (80.0-96.0); PLATELET COUNT, AUTOMATED 216 10^3/uL (150-450); RED BLOOD COUNT 3.77 10^6/uL (4.30-6.10); WHITE BLOOD COUNT 4.9 10^3/uL (4.0-10.0)
[2020-02-13 08:10] LABS: BLOOD UREA NITROGEN 12 MG/DL (7-18); CALCIUM LEVEL 8.2 MG/DL (8.8-10.2); CARBON DIOXIDE LEVEL 26 MEQ/L (21-32); CHLORIDE LEVEL 113 MEQ/L (98-107); CREATININE FOR GFR 0.69 MG/DL (0.70-1.30); GLOMERULAR FILTRATION RATE > 60.0 (>42); GLUCOSE, FASTING 97 MG/DL (70-100); POTASSIUM SERUM 3.3 MEQ/L (3.5-5.1); SODIUM LEVEL 147 MEQ/L (136-145)
[2020-02-13] MEDS: ENOXAPARIN 40MG/0.4ML SYRINGE (J1650 PER 10MG) SC SCH (08:41)
[2020-02-13] MEDS: OLANZapine 2.5MG TABLET PO SCH ×2 (08:41→18:19)
[2020-02-13] MEDS: SERTRALINE HCL 25 MG TABLET PO SCH (08:41)
[2020-02-13] MEDS: PARoxetine 10MG TABLET PO SCH (08:41)
[2020-02-13] MEDS: MEMANTINE 5MG TABLET (NAMENDA) PO SCH ×2 (08:41→20:10)
[2020-02-13] MEDS: FAMOTIDINE 20 MG TAB PO SCH (08:41)
[2020-02-13] MEDS: QUEtiapine FUMARATE 25 MG TAB PO SCH (08:41)
[2020-02-13] MEDS: amLODIPine 5 MG TAB PO SCH ×2 (08:43→20:10)
[2020-02-13 09:28] LABS: C REACTIVE PROTEIN QUANTITATIV 2.07 MG/DL (0.00-0.30)
[2020-02-13] MEDS: VANCOMYCIN HCL 1,000 MG, VIAL MATE ADAPTER 1 EACH in D5W 250 ML IV SCH ×2 (11:44→22:56)
--- NOTE | 2020-02-13 12:25 | IPNPDOC ---
Text Note Date of Service The patient was seen on 02/13/20. NOTE Subjective: Patient sleeping all day long and awake all night. AT night he would be constantly talking, mumbling trying to get out of bed, he would startle very easily. Has been refusing food. When tried to be fed he would keep his lips closed and push the hand away. Spit things out. No fever. He has refused even Ensure which normally loves as per [facility] staff. His jaw and neck inflammation resolved. PHYSICAL EXAMINATION: VITAL SIGNS: As below GENERAL APPEARANCE: sleeping, when awake and alert he mumbles irrelevant things. HEENT: Right cheek and parotid region enlarged no erythema now painful to light touch, anicteric eyes CARDIOVASCULAR: S1, s2 regular, no rub/ murmur/ gallop LUNGS: clear to auscultation bilaterally Abdomen: Soft , nontender, bowel sounds normal. PSYCHIATRIC: mumbling speech, no orientation, does not follow commands. LABORATORY DATA: Reviewed. IMAGING: Neck CT on 02/08/[address] Davis showed swelling and heterogeneous enhancement in the right parotid gland consistent w/ parotitis. Some inflammation is and thickening is seen in the right platysma, no abscess is seen, no evidence of mass or adenopathy. ASSESSMENT and PLAN : This is a 74 yr old male w/ PMHx of Dementia, HTN, GERD, Chronic urinary retention now with johnston few days ago in the ED was sent from [facility] for right jaw pain and inflammation and was found to have Acute parotitis. Acute Parotitis After evaluating Neck CT, did not show abscess formation will continue Unasyn and add vancomycin Could be viral also. Did not allow resp panel check. full liquids and ensure for ease of eating. 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
[2020-02-13] MEDS: TAMSULOSIN 0.4 MG CAP PO SCH ×2 (13:00→13:35)
[2020-02-13] MEDS: QUEtiapine FUMARATE 50 MG TAB PO SCH (18:19)
[2020-02-13] MEDS: RAMELTEON 8 MG TAB (ROZEREM) PO PRN (20:09)
[2020-02-13] MEDS: MIRTAZAPINE 15 MG TAB PO SCH (20:10)
[2020-02-13 22:00] VITALS: BP 112/68
[2020-02-14] MEDS: AMPICILLIN SOD/SULBACTAM SOD 3 GM in D5W MINI-BAG PLUS 100 ML IV SCH ×4 (01:23→20:31)
[2020-02-14 06:00] VITALS: BP 119/78
[2020-02-14] MEDS ORDERED: BISACODYL 10 MG SUPP PR PRN ×2 (09:15→12:15)
[2020-02-14] MEDS: amLODIPine 5 MG TAB PO SCH ×2 (09:47→20:32)
[2020-02-14] MEDS: PARoxetine 10MG TABLET PO SCH (09:47)
[2020-02-14] MEDS: FAMOTIDINE 20 MG TAB PO SCH (09:47)
[2020-02-14] MEDS: QUEtiapine FUMARATE 25 MG TAB PO SCH (09:47)
[2020-02-14] MEDS: SERTRALINE HCL 25 MG TABLET PO SCH (09:47)
[2020-02-14] MEDS: OLANZapine 2.5MG TABLET PO SCH ×2 (09:47→17:00)
[2020-02-14] MEDS: MEMANTINE 5MG TABLET (NAMENDA) PO SCH ×2 (09:47→20:32)
[2020-02-14] MEDS: ENOXAPARIN 40MG/0.4ML SYRINGE (J1650 PER 10MG) SC SCH (09:48)
[2020-02-14] MEDS: VANCOMYCIN HCL 1,000 MG, VIAL MATE ADAPTER 1 EACH in D5W 250 ML IV SCH ×2 (11:54→23:34)
[2020-02-14] MEDS: KCL 40MEQ IN D5/NS 1000ML 1,000 ML IV SCH ×2 (11:55→20:31)
--- NOTE | 2020-02-14 12:16 | IPNPDOC ---
Text Note Date of Service The patient was seen on 02/14/20. NOTE Subjective: agitated this am. Mumbling , trying to get out of bed. Spit things out. No fever. He has refused even Ensure which normally loves as per [facility] staff. His jaw and neck inflammation resolved. though still some swelling just below the ear. Has not had bowel movement for several days. Refusing oral intake. PHYSICAL EXAMINATION: VITAL SIGNS: As below GENERAL APPEARANCE: sleeping, when awake and alert he mumbles irrelevant things. HEENT: Right cheek and parotid region enlarged no erythema now painful to light touch, anicteric eyes CARDIOVASCULAR: S1, s2 regular, no rub/ murmur/ gallop LUNGS: clear to auscultation bilaterally Abdomen: Soft , nontender, bowel sounds normal. PSYCHIATRIC: mumbling speech, no orientation, does not follow commands. LABORATORY DATA: Reviewed. IMAGING: Neck CT on 02/08/[address] Davis showed swelling and heterogeneous enhancement in the right parotid gland consistent w/ parotitis. Some inflammation is and thickening is seen in the right platysma, no abscess is seen, no evidence of mass or adenopathy. ASSESSMENT and PLAN : This is a 74 yr old male w/ PMHx of Dementia, HTN, GERD, Chronic urinary retention now with johnston few days ago in the ED was sent from [facility] for right jaw pain and inflammation and was found to have Acute parotitis. Acute Parotitis After evaluating Neck CT, did not show abscess formation will continue Unasyn and add vancomycin Could be viral also. Did not allow resp panel check. full liquids and ensure for ease of eating. 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 VS,Fishbone, I+O VS, Fishbone, I+O Vital Signs Date Time Temp Pulse Resp B/P (MAP) Pulse Ox O2 Delivery O2 Flow Rate FiO2 02/13/20 22:00 98.0 62 18 112/68 (83) 96 Room Air 02/08/20 18:54 164.0 I&O- Last 24 Hours up to 6 AM 02/14/20 07:00 Intake Total 1460 ml Output Total 750 ml Balance 710 ml JOSE ALEXANDER MD Feb 14, 2020 08:00
[2020-02-14] MEDS: TAMSULOSIN 0.4 MG CAP PO SCH (13:00)
[2020-02-14 14:00] VITALS: BP 121/78
[2020-02-14] MEDS: QUEtiapine FUMARATE 50 MG TAB PO SCH (17:00)
[2020-02-14] MEDS: RAMELTEON 8 MG TAB (ROZEREM) PO PRN (20:31)
[2020-02-14] MEDS: MIRTAZAPINE 15 MG TAB PO SCH (20:32)
[2020-02-14 22:00] VITALS: BP 124/83
[2020-02-15] MEDS: AMPICILLIN SOD/SULBACTAM SOD 3 GM in D5W MINI-BAG PLUS 100 ML IV SCH ×4 (01:19→20:47)
[2020-02-15 06:00] VITALS: BP 107/68
[2020-02-15] MEDS: FAMOTIDINE 20 MG TAB PO SCH (09:27)
[2020-02-15] MEDS: PARoxetine 10MG TABLET PO SCH (09:27)
[2020-02-15] MEDS: SERTRALINE HCL 25 MG TABLET PO SCH (09:28)
[2020-02-15] MEDS: ENOXAPARIN 40MG/0.4ML SYRINGE (J1650 PER 10MG) SC SCH (09:28)
[2020-02-15] MEDS: QUEtiapine FUMARATE 25 MG TAB PO SCH (09:28)
[2020-02-15] MEDS: OLANZapine 2.5MG TABLET PO SCH ×2 (09:28→17:55)
[2020-02-15] MEDS: MEMANTINE 5MG TABLET (NAMENDA) PO SCH ×2 (09:28→21:35)
[2020-02-15] MEDS: amLODIPine 5 MG TAB PO SCH ×2 (09:29→21:36)
[2020-02-15] MEDS: VANCOMYCIN HCL 1,000 MG, VIAL MATE ADAPTER 1 EACH in D5W 250 ML IV SCH ×2 (11:36→23:05)
[2020-02-15] MEDS: TAMSULOSIN 0.4 MG CAP PO SCH (13:00)
--- NOTE | 2020-02-15 14:18 | DS ---
DATE OF ADMISSION: 02/08/2020 DATE OF DISCHARGE: Undetermined PRINCIPAL DIAGNOSIS: Right parotid gland inflammation, suspected parotitis. HISTORY: The patient was admitted from [facility] after a CT on 02/07 showed swelling and heterogeneous enhancement, right parotid gland. He was admitted for IV antibiotics. There was no abscess seen. HOSPITAL COURSE: The patient was admitted to a medical bed. He has dementia. He required a sitter. He could not be treated as an outpatient. He had a week of Zosyn and Vancomycin. He responded to this with resolution of swelling and resolution of leukocytosis. White count went from 22 down to 4.9. He had no labs ordered for the last few days. Previously labs looked like he had improving white count. C-reactive protein had gone from 17 down to 2. The plan is for discharge back to [facility] but I have just been informed by patient family services they are not accepting patients. We will line up the discharge so once they get past that he will be able to go. DISCHARGE MEDICATIONS: His medications are going to be unchanged from admission. He is off antibiotics. He has completed his week of intravenous antibiotic with clinical improvement. He will continue his previous management with: - Tylenol as needed - Amlodipine 5 mg daily - Aricept 10 mg daily - omeprazole 40 mg daily - famotidine 40 mg daily - Gabapentin 150 mg twice a day - Namenda 10 mg twice a day - Remeron 15 mg once daily at bedtime - Olanzapine 2.5 mg twice a day - Paxil 10 mg daily - Seroquel 50 mg at bedtime, 25 mg in the morning - Flomax 0.4 mg daily - He also has Sertraline 25 mg daily on his med list and I do not think he would be taking that together with the Paxil so we will discontinue the sertraline He looks to have Nitrofurantoin 100 mg twice a day started on 02/06 so we are discontinuing that as well He did receive both sertraline and paroxetine during this hospitalization but I am really not comfortable sending back to [facility] on two SSRI agents. Discharge is held until [facility] is accepting patients again. [facility] HOSPITALGanesh
[2020-02-15] MEDS: QUEtiapine FUMARATE 50 MG TAB PO SCH (17:55)
[2020-02-15] MEDS ORDERED: QUEtiapine FUMARATE 50 MG TAB PO ONE (21:00)
[2020-02-15] MEDS: MIRTAZAPINE 15 MG TAB PO SCH (21:36)
[2020-02-15 22:00] VITALS: BP 139/67
[2020-02-16] MEDS: AMPICILLIN SOD/SULBACTAM SOD 3 GM in D5W MINI-BAG PLUS 100 ML IV SCH ×2 (02:58→08:47)
[2020-02-16 06:00] VITALS: BP 115/58
[2020-02-16 07:22] LABS: BASO % 0.8 % (0.0-1.0); EOS # 0.2 10^3/uL (0.0-0.5); EOS % 3.9 % (0.0-3.0); HEMATOCRIT 37.1 % (42.0-52.0); HEMOGLOBIN 12.3 g/dl (13.5-17.5); LYMPH # 1.6 10^3/uL (1.5-5.0); LYMPH % 31.4 % (24.0-44.0); MEAN CORPUSCULAR HEMOGLOBIN 29.7 pg (27.0-33.0); MEAN CORPUSCULAR HGB CONC 33.2 g/dl (32.0-36.5); MEAN CORPUSCULAR VOLUME 89.6 fl (80.0-96.0); MONO # 0.3 10^3/uL (0.0-0.8); MONO % 6.9 % (0.0-5.0); NEUTROPHILS # 2.8 10^3/uL (1.5-8.5); PLATELET COUNT, AUTOMATED 258 10^3/uL (150-450); RED BLOOD COUNT 4.14 10^6/uL (4.30-6.10); WHITE BLOOD COUNT 4.9 10^3/uL (4.0-10.0)
[2020-02-16 07:39] LABS: BLOOD UREA NITROGEN 6 MG/DL (7-18); CALCIUM LEVEL 9.1 MG/DL (8.8-10.2); CARBON DIOXIDE LEVEL 24 MEQ/L (21-32); CHLORIDE LEVEL 116 MEQ/L (98-107); GLOMERULAR FILTRATION RATE > 60.0 (>42); GLUCOSE, FASTING 94 MG/DL (70-100); MAGNESIUM LEVEL 2.3 MG/DL (1.8-2.4); POTASSIUM SERUM 4.7 MEQ/L (3.5-5.1); SODIUM LEVEL 146 MEQ/L (136-145)
[2020-02-16] MEDS: OLANZapine 2.5MG TABLET PO SCH ×2 (11:37→20:10)
[2020-02-16] MEDS: FAMOTIDINE 20 MG TAB PO SCH (11:37)
[2020-02-16] MEDS: SERTRALINE HCL 25 MG TABLET PO SCH (11:37)
[2020-02-16] MEDS: MEMANTINE 5MG TABLET (NAMENDA) PO SCH ×2 (11:37→20:10)
[2020-02-16] MEDS: QUEtiapine FUMARATE 25 MG TAB PO SCH (11:38)
[2020-02-16] MEDS: amLODIPine 5 MG TAB PO SCH ×2 (11:40→20:11)
[2020-02-16] MEDS: PARoxetine 10MG TABLET PO SCH (11:40)
[2020-02-16] MEDS: ENOXAPARIN 40MG/0.4ML SYRINGE (J1650 PER 10MG) SC SCH (11:41)
[2020-02-16] MEDS: TAMSULOSIN 0.4 MG CAP PO SCH (13:00)
[2020-02-16 14:00] VITALS: BP 128/70
[2020-02-16] MEDS: MIRTAZAPINE 15 MG TAB PO SCH (20:10)
[2020-02-16] MEDS: QUEtiapine FUMARATE 50 MG TAB PO SCH (20:11)
[2020-02-16 22:00] VITALS: BP 103/85
[2020-02-17 06:00] VITALS: BP 106/80
[2020-02-17] MEDS: FAMOTIDINE 20 MG TAB PO SCH (08:56)
[2020-02-17] MEDS: PARoxetine 10MG TABLET PO SCH (08:56)
[2020-02-17] MEDS: MEMANTINE 5MG TABLET (NAMENDA) PO SCH ×3 (08:56→21:53)
[2020-02-17] MEDS: OLANZapine 2.5MG TABLET PO SCH ×2 (08:56→17:47)
[2020-02-17] MEDS: SERTRALINE HCL 25 MG TABLET PO SCH (08:56)
[2020-02-17] MEDS: amLODIPine 5 MG TAB PO SCH ×2 (08:56→21:00)
[2020-02-17] MEDS: QUEtiapine FUMARATE 25 MG TAB PO SCH (08:56)
[2020-02-17] MEDS: ENOXAPARIN 40MG/0.4ML SYRINGE (J1650 PER 10MG) SC SCH (08:57)
[2020-02-17] MEDS: TAMSULOSIN 0.4 MG CAP PO SCH (12:37)
[2020-02-17] MEDS: QUEtiapine FUMARATE 50 MG TAB PO SCH (17:47)
[2020-02-17] MEDS: MIRTAZAPINE 15 MG TAB PO SCH ×2 (21:00→21:53)
[2020-02-17 22:00] VITALS: BP 111/89
[2020-02-18 06:00] VITALS: BP 124/72
[2020-02-18 09:51] VITALS: BP 131/77
[2020-02-18] MEDS: MEMANTINE 5MG TABLET (NAMENDA) PO SCH (09:51)
[2020-02-18] MEDS: amLODIPine 5 MG TAB PO SCH (09:51)
[2020-02-18] MEDS: FAMOTIDINE 20 MG TAB PO SCH (09:52)
[2020-02-18] MEDS: OLANZapine 2.5MG TABLET PO SCH (09:52)
[2020-02-18] MEDS: PARoxetine 10MG TABLET PO SCH (09:52)
[2020-02-18] MEDS: SERTRALINE HCL 25 MG TABLET PO SCH (09:52)
[2020-02-18] MEDS: QUEtiapine FUMARATE 25 MG TAB PO SCH (09:52)
[2020-02-18] MEDS: ENOXAPARIN 40MG/0.4ML SYRINGE (J1650 PER 10MG) SC SCH (09:52)
== END 2020-02-18 12:35 | DRG 155 ==
LOC: M ED 09:23 → M ED INP 14:30 → ENRESERV 16:09 → M MSPAV 16:44
PROVIDERS: ADMIT Internal Medicine; ATTEND Family Medicine
DX: K11.21 Acute sialoadenitis (principal); F03.91 Unspecified dementia, unspecified severity, with behavioral disturbance; Z79.899 Other long term (current) drug therapy; I10 Essential (primary) hypertension; K21.9 Gastro-esophageal reflux disease without esophagitis

== ENCOUNTER → 2020-02-20 | Outpatient (REF) | payer MEDICARE ==
[~2020-02-20] MED LIST changes: +ACET325T43 PO; +AUGM250S13 PO; +FAMO40TA3 PO; +GABA-282 PO; -GABA-843 PO; +MACR100C43 PO; +METR1INJ2 PO; +MIRT-62 PO; +NAME10TA PO; +NEUR300C PO; +QUET25TA3 PO; +QUET50TA3 PO; -QUET5TAB PO; +SERT25TA85 PO
== END ==
LOC: SKLAB7 02-19 15:42 → EDSTATUS 03-28 12:34
PROVIDERS: ATTEND Internal Medicine
DX: Z20.828 Contact with and (suspected) exposure to other viral communicable diseases (principal)

== ENCOUNTER → 2020-02-27 | Outpatient (REF) | payer MEDICARE | LOC: SKLAB7 08:00 | PROVIDERS: ATTEND Internal Medicine | DX: Z20.828 Contact with and (suspected) exposure to other viral communicable diseases (principal) ==

== ENCOUNTER 2020-02-28 13:21 | Emergency (ER) | payer MEDICARE ==
[~2020-02-28] VITALS: Ht 182.9 cm; Wt 67.0 kg
[~2020-02-28 13:21] MED LIST changes: -AUGM250S13 PO; -GABA-282 PO; +GABA-843 PO; -METR1INJ2 PO; +QUET1TAB7 PO; -QUET25TA3 PO; -QUET50TA3 PO; +QUET5TAB PO
[2020-02-28] MEDS ORDERED: NS 1,000 ML IV ONE (14:15)
[2020-02-28 14:43] LABS: BASO % 0.4 % (0.0-1.0); EOS # 0.1 10^3/uL (0.0-0.5); EOS % 0.7 % (0.0-3.0); HEMATOCRIT 40.2 % (42.0-52.0); HEMOGLOBIN 13.5 g/dl (13.5-17.5); LYMPH # 1.4 10^3/uL (1.5-5.0); LYMPH % 14.2 % (24.0-44.0); MEAN CORPUSCULAR HEMOGLOBIN 30.2 pg (27.0-33.0); MEAN CORPUSCULAR HGB CONC 33.6 g/dl (32.0-36.5); MEAN CORPUSCULAR VOLUME 89.9 fl (80.0-96.0); MONO # 0.5 10^3/uL (0.0-0.8); MONO % 4.9 % (0.0-5.0); NEUTROPHILS # 7.9 10^3/uL (1.5-8.5); NEUTROPHILS % 79.5 % (36.0-66.0); PLATELET COUNT, AUTOMATED 218 10^3/uL (150-450); RED BLOOD COUNT 4.47 10^6/uL (4.30-6.10); WHITE BLOOD COUNT 9.9 10^3/uL (4.0-10.0)
[2020-02-28] MEDS ORDERED: ISOVUE-370 76% 100ML VIAL As Ordered ONE (14:55)
--- NOTE | 2020-02-28 15:33 | REP ---
INDICATION: left pariatal swelling and erythema. COMPARISON: None. TECHNIQUE: Axial contrast-enhanced images from the skull base to the thoracic inlet with coronal and sagittal reformations using 100 cc Isovue 370 intravenous contrast material. FINDINGS: There is swelling and enlargement of the left parotid gland with subtle heterogeneous parenchymal enhancement and mild overlying subcutaneous inflammatory stranding. Few reactive lymph nodes along the cervical chain inferior to the parotid gland are noted. No abscess/drainable collection or parotid stones are identified. Remainder of the neck examination is essentially normal. The nasopharyngeal, or pharyngeal and hypopharyngeal soft tissues are relatively symmetric. Retropharyngeal soft tissue is normal. The airway is patent and midline. Incidental atherosclerotic changes to the carotid arteries noted bilaterally. The visualized sinuses and mastoid air cells are clear. The osseous structures are intact. IMPRESSION: Findings suggest left-sided parotitis without abscess/drainable collection or parotid stones. Mild reactive cervical lymph nodes noted. <Electronically signed by Tobias Alva > 02/28/20 [id number]
[2020-02-28] MEDS ORDERED: AMPICILLIN SOD/SULBACTAM SOD 3 GM in D5W MINI-BAG PLUS 100 ML IV ONE (15:45)
[2020-02-28] MEDS ORDERED: metroNIDAZOLE (FLAGYL) 500MG TABLET PO ONE (15:45)
[2020-02-28] MEDS ORDERED: metroNIDAZOLE 500 MG in IV 1 EA IV ONE (16:30)
[2020-02-28] MEDS ORDERED: AUGM250S13 PO (17:26)
[2020-02-28] MEDS ORDERED: METR1INJ2 PO (17:26)
[2020-02-28 18:32] VITALS: BP 130/80
== END 2020-02-28 18:38 | disposition home or self-care (01) ==
LOC: M ED 13:21
DX: K11.20 Sialoadenitis, unspecified (principal); F03.90 Unspecified dementia, unspecified severity, without behavioral disturbance, psychotic disturbance, mood disturbance, and anxiety; I10 Essential (primary) hypertension; K21.9 Gastro-esophageal reflux disease without esophagitis; F33.9 Major depressive disorder, recurrent, unspecified; F41.9 Anxiety disorder, unspecified; Z79.899 Other long term (current) drug therapy
CPT/HCPCS: 70491; 80047; 85025; 86140; 96361; 96365; 96367; 99284; Q9967

== ENCOUNTER → 2020-03-04 | Outpatient (REF) | payer MEDICARE ==
[~2020-03-04] MED LIST changes: +AUGM250S13 PO; +METR1INJ2 PO
[2020-03-04 08:49] LABS: HEMOGLOBIN 11.9 g/dl (13.5-17.5); MEAN CORPUSCULAR HEMOGLOBIN 30.7 pg (27.0-33.0); MEAN CORPUSCULAR VOLUME 87.6 fl (80.0-96.0); PLATELET COUNT, AUTOMATED 202 10^3/uL (150-450); RED BLOOD COUNT 3.88 10^6/uL (4.30-6.10); WHITE BLOOD COUNT 6.5 10^3/uL (4.0-10.0)
[2020-03-04 09:18] LABS: BLOOD UREA NITROGEN 13 MG/DL (7-18); CALCIUM LEVEL 8.5 MG/DL (8.8-10.2); CARBON DIOXIDE LEVEL 21 MEQ/L (21-32); CHLORIDE LEVEL 112 MEQ/L (98-107); CREATININE FOR GFR 0.66 MG/DL (0.70-1.30); GLOMERULAR FILTRATION RATE > 60.0 (>42); GLUCOSE, FASTING 99 MG/DL (70-100); POTASSIUM SERUM 2.9 MEQ/L (3.5-5.1); SODIUM LEVEL 142 MEQ/L (136-145)
== END ==
LOC: SKLAB7 07:00
PROVIDERS: ATTEND Internal Medicine
DX: Z79.899 Other long term (current) drug therapy (principal)

== ENCOUNTER → 2020-03-05 | Outpatient (REF) | payer MEDICARE ==
[~2020-03-05] MED LIST changes: +GABA-282 PO; -GABA-843 PO; -QUET1TAB7 PO; +QUET25TA3 PO; +QUET50TA3 PO; -QUET5TAB PO
== END ==
LOC: SKLAB7 08:00
PROVIDERS: ATTEND Internal Medicine
DX: Z20.828 Contact with and (suspected) exposure to other viral communicable diseases (principal)

== ENCOUNTER → 2020-03-06 | Outpatient (REF) | payer MEDICARE ==
[~2020-03-06] MED LIST changes: -GABA-282 PO; +GABA-843 PO; +QUET1TAB7 PO; -QUET25TA3 PO; -QUET50TA3 PO; +QUET5TAB PO
[2020-03-06 09:07] LABS: BLOOD UREA NITROGEN 17 MG/DL (7-18); CARBON DIOXIDE LEVEL 23 MEQ/L (21-32); CHLORIDE LEVEL 112 MEQ/L (98-107); CREATININE FOR GFR 0.68 MG/DL (0.70-1.30); GLOMERULAR FILTRATION RATE > 60.0 (>42); GLUCOSE, FASTING 99 MG/DL (70-100); POTASSIUM SERUM 3.1 MEQ/L (3.5-5.1); SODIUM LEVEL 144 MEQ/L (136-145)
== END ==
LOC: SKLAB7 14:34
PROVIDERS: ATTEND Internal Medicine
DX: E87.6 Hypokalemia (principal)

== ENCOUNTER → 2020-03-08 | Outpatient (REF) | payer MEDICARE ==
[~2020-03-08] MED LIST changes: +GABA-282 PO; -GABA-843 PO; -QUET1TAB7 PO; +QUET25TA3 PO; +QUET50TA3 PO; -QUET5TAB PO
== END ==
LOC: SKLAB7 08:00
PROVIDERS: ATTEND Internal Medicine
DX: Z20.828 Contact with and (suspected) exposure to other viral communicable diseases (principal)

== ENCOUNTER → 2020-03-11 | Outpatient (REF) | payer MEDICARE ==
[~2020-03-11] MED LIST changes: -GABA-282 PO; +GABA-843 PO; +QUET1TAB7 PO; -QUET25TA3 PO; -QUET50TA3 PO; +QUET5TAB PO
[2020-03-11 09:14] LABS: BLOOD UREA NITROGEN 12 MG/DL (7-18); CALCIUM LEVEL 8.9 MG/DL (8.8-10.2); CARBON DIOXIDE LEVEL 24 MEQ/L (21-32); CHLORIDE LEVEL 115 MEQ/L (98-107); CREATININE FOR GFR 0.66 MG/DL (0.70-1.30); GLOMERULAR FILTRATION RATE > 60.0 (>42); GLUCOSE, FASTING 95 MG/DL (70-100); POTASSIUM SERUM 3.3 MEQ/L (3.5-5.1); SODIUM LEVEL 144 MEQ/L (136-145)
== END ==
LOC: SKLAB7 07:00
PROVIDERS: ATTEND Internal Medicine
DX: E87.6 Hypokalemia (principal)

== ENCOUNTER → 2020-03-12 | Outpatient (REF) | payer MEDICARE | LOC: SKLAB7 08:41 | PROVIDERS: ATTEND Internal Medicine | DX: Z20.828 Contact with and (suspected) exposure to other viral communicable diseases (principal) ==

== ENCOUNTER → 2020-03-18 | Outpatient (REF) | payer MEDICARE ==
[2020-03-18 10:14] LABS: BLOOD UREA NITROGEN 14 MG/DL (7-18); CALCIUM LEVEL 9.3 MG/DL (8.8-10.2); CARBON DIOXIDE LEVEL 24 MEQ/L (21-32); CHLORIDE LEVEL 109 MEQ/L (98-107); CREATININE FOR GFR 0.86 MG/DL (0.70-1.30); GLOMERULAR FILTRATION RATE > 60.0 (>42); GLUCOSE, FASTING 126 MG/DL (70-100); POTASSIUM SERUM 3.7 MEQ/L (3.5-5.1); SODIUM LEVEL 142 MEQ/L (136-145)
== END ==
LOC: SKLAB7 03-17 07:00
PROVIDERS: ATTEND Internal Medicine
DX: E86.0 Dehydration (principal)

== ENCOUNTER → 2020-03-19 | Outpatient (REF) | payer MEDICARE | LOC: SKLAB7 07:00 | PROVIDERS: ATTEND Internal Medicine | DX: Z20.828 Contact with and (suspected) exposure to other viral communicable diseases (principal) ==

== ENCOUNTER → 2020-03-26 | Outpatient (REF) | payer MEDICARE | LOC: SKLAB7 11:39 | PROVIDERS: ATTEND Internal Medicine | DX: Z20.828 Contact with and (suspected) exposure to other viral communicable diseases (principal) ==

== ENCOUNTER → 2020-04-02 | Outpatient (REF) | payer MEDICARE | LOC: SKLAB7 09:02 | PROVIDERS: ATTEND Internal Medicine | DX: Z20.828 Contact with and (suspected) exposure to other viral communicable diseases (principal) ==

== ENCOUNTER → 2020-04-08 | Outpatient (REF) | payer MEDICARE ==
[2020-04-08 10:15] LABS: BLOOD UREA NITROGEN 13 MG/DL (7-18); CALCIUM LEVEL 9.2 MG/DL (8.8-10.2); CARBON DIOXIDE LEVEL 19 MEQ/L (21-32); CHLORIDE LEVEL 106 MEQ/L (98-107); CREATININE FOR GFR 0.81 MG/DL (0.70-1.30); GLOMERULAR FILTRATION RATE > 60.0 (>42); GLUCOSE, FASTING 79 MG/DL (70-100); POTASSIUM SERUM 4.1 MEQ/L (3.5-5.1); SODIUM LEVEL 137 MEQ/L (136-145)
== END ==
LOC: SKLAB7 07:00
PROVIDERS: ATTEND Internal Medicine
DX: E87.6 Hypokalemia (principal)

== ENCOUNTER → 2020-04-09 | Outpatient (REF) | payer MEDICARE | LOC: SKLAB7 15:18 | PROVIDERS: ATTEND Internal Medicine | DX: Z11.52 Encounter for screening for COVID-19 (principal) ==

== ENCOUNTER → 2020-04-16 | Outpatient (REF) | payer MEDICARE ==
[~2020-04-16] MED LIST changes: +GABA-282 PO; -GABA-843 PO
== END ==
LOC: SKLAB7 11:03
PROVIDERS: ATTEND Internal Medicine
DX: Z20.822 Contact with and (suspected) exposure to COVID-19 (principal)

== ENCOUNTER → 2020-04-23 | Outpatient (REF) | payer MEDICARE ==
[~2020-04-23] MED LIST changes: -QUET1TAB7 PO; +QUET25TA3 PO; +QUET50TA3 PO; -QUET5TAB PO
== END ==
LOC: SKLAB7 13:26
PROVIDERS: ATTEND Internal Medicine
DX: Z20.822 Contact with and (suspected) exposure to COVID-19 (principal)

== ENCOUNTER → 2020-04-30 | Outpatient (REF) | payer MEDICARE | LOC: SKLAB7 10:28 | PROVIDERS: ATTEND Internal Medicine | DX: Z20.822 Contact with and (suspected) exposure to COVID-19 (principal) ==

== ENCOUNTER → 2020-05-07 | Outpatient (REF) | payer MEDICARE ==
[~2020-05-07] MED LIST changes: +QUET1TAB7 PO; -QUET25TA3 PO; -QUET50TA3 PO; +QUET5TAB PO
== END ==
LOC: SKLAB7 13:56
PROVIDERS: ATTEND Internal Medicine
DX: Z20.822 Contact with and (suspected) exposure to COVID-19 (principal)

== ENCOUNTER → 2020-05-13 | Outpatient (REF) | payer MEDICARE ==
[~2020-05-13] MED LIST changes: -QUET1TAB7 PO; +QUET25TA3 PO; +QUET50TA3 PO; -QUET5TAB PO
[2020-05-13 10:01] LABS: HEMATOCRIT 40.3 % (42.0-52.0); HEMOGLOBIN 13.8 g/dl (13.5-17.5); MEAN CORPUSCULAR HEMOGLOBIN 30.8 pg (27.0-33.0); MEAN CORPUSCULAR HGB CONC 34.2 g/dl (32.0-36.5); PLATELET COUNT, AUTOMATED 231 10^3/uL (150-450); RED BLOOD COUNT 4.48 10^6/uL (4.30-6.10); WHITE BLOOD COUNT 7.6 10^3/uL (4.0-10.0)
[2020-05-13 10:14] LABS: BLOOD UREA NITROGEN 13 MG/DL (7-18); CALCIUM LEVEL 10.2 MG/DL (8.8-10.2); CARBON DIOXIDE LEVEL 26 MEQ/L (21-32); CHLORIDE LEVEL 103 MEQ/L (98-107); CREATININE FOR GFR 0.81 MG/DL (0.70-1.30); GLOMERULAR FILTRATION RATE > 60.0 (>42); GLUCOSE, FASTING 101 MG/DL (70-100); SODIUM LEVEL 138 MEQ/L (136-145)
== END ==
LOC: SKLAB7 07:10
PROVIDERS: ATTEND Internal Medicine
DX: R53.83 Other fatigue (principal)

== ENCOUNTER → 2020-05-13 | Outpatient (CLI) | payer MEDICARE | LOC: SKLAB7 01:15 | PROVIDERS: ATTEND Internal Medicine | DX: I10 Essential (primary) hypertension (principal); R04.0 Epistaxis ==

== ENCOUNTER → 2020-05-14 | Outpatient (REF) | payer MEDICARE | LOC: SKLAB7 11:22 | PROVIDERS: ATTEND Internal Medicine | DX: Z20.822 Contact with and (suspected) exposure to COVID-19 (principal) ==

== ENCOUNTER → 2020-05-21 | Outpatient (REF) | payer MEDICARE | LOC: SKLAB7 09:55 | PROVIDERS: ATTEND Internal Medicine | DX: Z20.822 Contact with and (suspected) exposure to COVID-19 (principal) ==

== ENCOUNTER → 2020-05-28 | Outpatient (REF) | payer MEDICARE | LOC: SKLAB7 14:43 | PROVIDERS: ATTEND Internal Medicine | DX: Z20.822 Contact with and (suspected) exposure to COVID-19 (principal) ==

== ENCOUNTER → 2020-06-05 | Outpatient (REF) | payer MEDICARE ==
[2020-06-05 08:52] LABS: HEMATOCRIT 33.1 % (42.0-52.0); HEMOGLOBIN 11.1 g/dl (13.5-17.5); MEAN CORPUSCULAR HEMOGLOBIN 31.4 pg (27.0-33.0); MEAN CORPUSCULAR HGB CONC 33.5 g/dl (32.0-36.5); MEAN CORPUSCULAR VOLUME 93.5 fl (80.0-96.0); PLATELET COUNT, AUTOMATED 177 10^3/uL (150-450); RED BLOOD COUNT 3.54 10^6/uL (4.30-6.10); WHITE BLOOD COUNT 5.4 10^3/uL (4.0-10.0)
[2020-06-05 09:11] LABS: BLOOD UREA NITROGEN 12 MG/DL (7-18); CALCIUM LEVEL 8.2 MG/DL (8.8-10.2); CARBON DIOXIDE LEVEL 26 MEQ/L (21-32); CHLORIDE LEVEL 111 MEQ/L (98-107); CREATININE FOR GFR 0.67 MG/DL (0.70-1.30); GLOMERULAR FILTRATION RATE > 60.0 (>42); GLUCOSE, FASTING 85 MG/DL (70-100); POTASSIUM SERUM 3.4 MEQ/L (3.5-5.1); SODIUM LEVEL 144 MEQ/L (136-145)
== END ==
LOC: SKLAB7 07:00
PROVIDERS: ATTEND Internal Medicine
DX: E87.6 Hypokalemia (principal); R60.9 Edema, unspecified

== ENCOUNTER → 2020-06-10 | Outpatient (REF) | payer MEDICARE ==
[2020-06-10 08:15] LABS: BLOOD UREA NITROGEN 11 MG/DL (7-18); CALCIUM LEVEL 7.9 MG/DL (8.8-10.2); CARBON DIOXIDE LEVEL 28 MEQ/L (21-32); CHLORIDE LEVEL 115 MEQ/L (98-107); CREATININE FOR GFR 0.64 MG/DL (0.70-1.30); GLOMERULAR FILTRATION RATE > 60.0 (>42); GLUCOSE, FASTING 87 MG/DL (70-100); POTASSIUM SERUM 3.3 MEQ/L (3.5-5.1); SODIUM LEVEL 147 MEQ/L (136-145)
== END ==
LOC: SKLAB7 07:05
PROVIDERS: ATTEND Internal Medicine
DX: E87.5 Hyperkalemia (principal)

== ENCOUNTER → 2020-06-11 | Outpatient (REF) | payer MEDICARE | LOC: SKLAB7 08:30 | PROVIDERS: ATTEND Internal Medicine | DX: Z20.822 Contact with and (suspected) exposure to COVID-19 (principal) ==

== ENCOUNTER → 2020-06-17 | Outpatient (REF) | payer MEDICARE ==
[2020-06-17 08:50] LABS: BLOOD UREA NITROGEN 11 MG/DL (7-18); CALCIUM LEVEL 8.2 MG/DL (8.8-10.2); CARBON DIOXIDE LEVEL 27 MEQ/L (21-32); CHLORIDE LEVEL 112 MEQ/L (98-107); CREATININE FOR GFR 0.51 MG/DL (0.70-1.30); GLOMERULAR FILTRATION RATE > 60.0 (>42); GLUCOSE, FASTING 83 MG/DL (70-100); NT-PRO BNP 1104 PG/ML (<125); POTASSIUM SERUM 3.1 MEQ/L (3.5-5.1); SODIUM LEVEL 148 MEQ/L (136-145)
== END ==
LOC: SKLAB7 07:00
PROVIDERS: ATTEND Internal Medicine
DX: I50.9 Heart failure, unspecified (principal)

== ENCOUNTER → 2020-06-18 | Outpatient (REF) | payer MEDICARE | LOC: SKLAB7 07:00 | PROVIDERS: ATTEND Internal Medicine | DX: Z53.8 Procedure and treatment not carried out for other reasons (principal) ==

== ENCOUNTER → 2020-06-20 | Outpatient (REF) | payer MEDICARE ==
[2020-06-20 07:16] LABS: BLOOD UREA NITROGEN 11 MG/DL (7-18); CALCIUM LEVEL 8.2 MG/DL (8.8-10.2); CARBON DIOXIDE LEVEL 27 MEQ/L (21-32); CHLORIDE LEVEL 115 MEQ/L (98-107); CREATININE FOR GFR 0.61 MG/DL (0.70-1.30); GLOMERULAR FILTRATION RATE > 60.0 (>42); GLUCOSE, FASTING 97 MG/DL (70-100); POTASSIUM SERUM 3.2 MEQ/L (3.5-5.1); SODIUM LEVEL 149 MEQ/L (136-145)
== END ==
LOC: SKLAB7 07:00
PROVIDERS: ATTEND Internal Medicine
DX: I50.9 Heart failure, unspecified (principal)

== ENCOUNTER → 2020-06-24 | Outpatient (REF) | payer MEDICARE ==
[2020-06-24 07:37] LABS: BLOOD UREA NITROGEN 8 MG/DL (7-18); CALCIUM LEVEL 8.3 MG/DL (8.8-10.2); CARBON DIOXIDE LEVEL 28 MEQ/L (21-32); CHLORIDE LEVEL 112 MEQ/L (98-107); CREATININE FOR GFR 0.59 MG/DL (0.70-1.30); GLOMERULAR FILTRATION RATE > 60.0 (>42); GLUCOSE, FASTING 81 MG/DL (70-100); POTASSIUM SERUM 3.6 MEQ/L (3.5-5.1); SODIUM LEVEL 145 MEQ/L (136-145)
== END ==
LOC: SKLAB7 09:53
PROVIDERS: ATTEND Internal Medicine
DX: E87.6 Hypokalemia (principal)

== ENCOUNTER → 2020-07-04 | Outpatient (REF) | payer MEDICARE | LOC: SKLAB7 07:00 | PROVIDERS: ATTEND Internal Medicine | DX: Z20.822 Contact with and (suspected) exposure to COVID-19 (principal) ==

== ENCOUNTER → 2020-07-04 | Outpatient (REF) | payer MEDICARE | LOC: SKLAB7 20:00 | PROVIDERS: ATTEND Internal Medicine | DX: Z20.822 Contact with and (suspected) exposure to COVID-19 (principal) ==

== ENCOUNTER → 2020-07-08 | Outpatient (REF) | payer MEDICARE ==
[2020-07-08 08:57] LABS: BLOOD UREA NITROGEN 11 MG/DL (7-18); CALCIUM LEVEL 8.7 MG/DL (8.8-10.2); CARBON DIOXIDE LEVEL 30 MEQ/L (21-32); CHLORIDE LEVEL 112 MEQ/L (98-107); CREATININE FOR GFR 0.86 MG/DL (0.70-1.30); GLOMERULAR FILTRATION RATE > 60.0 (>42); GLUCOSE, FASTING 90 MG/DL (70-100); POTASSIUM SERUM 4.1 MEQ/L (3.5-5.1); SODIUM LEVEL 145 MEQ/L (136-145)
== END ==
LOC: SKLAB7 10:07
PROVIDERS: ATTEND Internal Medicine
DX: I50.9 Heart failure, unspecified (principal)

== ENCOUNTER → 2020-07-22 | Outpatient (REF) | payer MEDICARE ==
[2020-07-22 12:09] LABS: BLOOD UREA NITROGEN 10 MG/DL (7-18); CALCIUM LEVEL 9.1 MG/DL (8.8-10.2); CARBON DIOXIDE LEVEL 27 MEQ/L (21-32); CHLORIDE LEVEL 112 MEQ/L (98-107); CREATININE FOR GFR 0.79 MG/DL (0.70-1.30); GLOMERULAR FILTRATION RATE > 60.0 (>42); GLUCOSE, FASTING 93 MG/DL (70-100); POTASSIUM SERUM 3.1 MEQ/L (3.5-5.1); SODIUM LEVEL 146 MEQ/L (136-145)
== END ==
LOC: SKLAB7 07:00
PROVIDERS: ATTEND Internal Medicine
DX: I50.9 Heart failure, unspecified (principal)

== ENCOUNTER 2020-08-01 18:02 | Inpatient (IN) | payer MEDICARE ==
[~2020-08-01] VITALS: Ht 185.4 cm; Wt 82.5 kg
[2020-08-01 19:09] LABS: BASO % 0.8 % (0.0-1.0); EOS # 0.4 10^3/uL (0.0-0.5); EOS % 8.7 % (0.0-3.0); HEMATOCRIT 35.4 % (42.0-52.0); HEMOGLOBIN 11.5 g/dl (13.5-17.5); LYMPH # 1.2 10^3/uL (1.5-5.0); LYMPH % 23.8 % (24.0-44.0); MEAN CORPUSCULAR HEMOGLOBIN 32.2 pg (27.0-33.0); MEAN CORPUSCULAR HGB CONC 32.5 g/dl (32.0-36.5); MEAN CORPUSCULAR VOLUME 99.2 fl (80.0-96.0); MONO # 0.4 10^3/uL (0.0-0.8); MONO % 6.9 % (2.0-8.0); NEUTROPHILS % 59.4 % (36.0-66.0); PLATELET COUNT, AUTOMATED 183 10^3/uL (150-450); RED BLOOD COUNT 3.57 10^6/uL (4.30-6.10); WHITE BLOOD COUNT 5.1 10^3/uL (4.0-10.0)
[2020-08-01 19:34] LABS: ALBUMIN 3.1 GM/DL (3.2-5.2); ALT/SGPT 9 U/L (12-78); BILIRUBIN,DIRECT 0.3 MG/DL (0.0-0.2); BILIRUBIN,TOTAL 0.6 MG/DL (0.2-1.0); BLOOD UREA NITROGEN 12 MG/DL (7-18); CALCIUM LEVEL 9.6 MG/DL (8.8-10.2); CARBON DIOXIDE LEVEL 28 MEQ/L (21-32); CHLORIDE LEVEL 115 MEQ/L (98-107); CREATININE FOR GFR 0.95 MG/DL (0.70-1.30); GLOMERULAR FILTRATION RATE > 60.0 (>42); GLUCOSE, FASTING 109 MG/DL (70-100); POTASSIUM SERUM 4.3 MEQ/L (3.5-5.1); SODIUM LEVEL 149 MEQ/L (136-145); TOTAL PROTEIN 6.3 GM/DL (6.4-8.2)
[2020-08-01] MEDS ORDERED: LIDOCAINE 1% SDV 5ML VIAL DILUENT ONE (20:10)
[2020-08-01] MEDS ORDERED: cefTRIAXone SOD 1GM VIAL (J0696 PER 250MG) IM ONE (20:10)
[2020-08-01] MEDS ORDERED: MOM 30ML SUSPENSION UDC PO PRN (20:45)
[2020-08-01] MEDS ORDERED: MAALOX 30 ML SUSP *UDC PO PRN (20:45)
[2020-08-01] MEDS ORDERED: QUET100T2 PO (20:57)
[2020-08-01] MEDS ORDERED: HALD5INJ2 IM (20:57)
--- NOTE | 2020-08-01 20:57 | HPEPDOC ---
[facility] Medical History & Physical Date of Admission Aug 01, 2020 Date of Service: Aug 01, 2020 History and Physical CHIEF COMPLAINT: altered mental status with agitation HISTORY OF PRESENT ILLNESS: 74-year-old male with history of dementia and behaviors as well as hypertension and GERD, presented to the ER from [facility] f or increase in aggressive behavior with agitation, particularly toward staff and other residents. Found to have a UTI in the ER, admitted for management of UTI as well as delirium. Per report, she suffered some keep him and working on transferring patient to [facility] PAST MEDICAL HISTORY: 1. Advanced Dementia w/ Neurology Evaluation on 01/17/2020 2. Hypertension 3. GERD PAST SURGICAL HISTORY: unable to obtain SOCIAL HISTORY: resident at [facility] report of no tobacco, alcohol or illicit drug use FAMILY HISTORY: unable to obtain family hx ALLERGIES: Please see below. REVIEW OF SYSTEMS: ROS unable to reliably complete due to agitation HOME MEDICATIONS: Please see below. PHYSICAL EXAMINATION: VITAL SIGNS: please see below General: NAD, comfortable HEENT: PERRLA, EOMI, sclerae clear Neck: supple, normal ROM, no JVD Respiratory: lungs CTAB, no wheeze, no rales, no crackles CVS: RRR, normal S1, S2, no murmurs Abdo: soft, no masses, no hepatosplenomegaly, BS+, no rebound tenderness Extremities: trace edema. Feet not examined as patient refused. pulses intact MSK: no joint deformities, normal ROM Neuro: no focal neuro deficits, moving all 4 extremities, CN2-[address] ngth 5/5 in all 4 extremities. No nystagmus. Psych: agitated. AAO x 0. LABORATORY DATA: See below. MICROBIOLOGY: Please see below. ASSESSMENT: 74-year-old male with history of dementia and behaviors as well as hypertension and GERD, presented to the ER from [facility] for increase in aggressive behavior with agitation, particularly toward staff and other residents. Found to have a UTI in the ER, admitted for management of UTI as well as delirium. . PLAN: Delirium with agressive behaviour on dementia - patient has a prior hx of dementia with documented aggressive behaviours - transfered from [facility] with worsening behaviour - found to have UTI, perhaps etiology of delirium - will treat UTI, and continue psych meds - c/w seroquel, mirtazepine, memantine - IM haldol prn - sitter ordered - per report, plans for eventual transfer to [facility] UTI - per UA, dirty - given 1g IM ceftriaxone in the ER - given patient's behaviour, discussed with nursing, in order to avoid endagering staff, will defer IV placement - will continue PO cefdinir in am if able to tolerate po - f/u urine culture HTN - does not take meds - monitor Edema - patient takes lasix 20 mg daily - no documented hx of CHF - hold lasix in setting of hypernatremia Hx of orthostatic hypotension? - med rec noted florinef - will request records from [facility] keep - hold florenix as slightly elevated Na Hypernatremia - as above - sodium restricted diet DVT ppx: lovenox 40 mg sc daily Dispo: return to [facility] once appropriate behaviorally. Vital Signs Vital Signs Date Time Temp Pulse Resp B/P (MAP) Pulse Ox O2 Delivery O2 Flow Rate FiO2 08/01/20 18:14 98.1 62 18 134/62 (86) 100 Room Air Laboratory Data Labs 24H Laboratory Tests 2 08/01/20 18:16: Urine Color IBETH, Urine Appearance CLOUDYH, Urine pH 6.0, Urine Specific Chaplin 1.018, Urine Protein 2+H, Urine Glucose (UA) NEGATIVE, Urine Ketones NEGATIVE, Urine Blood NEGATIVE, Urine Nitrite NEGATIVE, Urine Bilirubin NEGATIVE, Urine Urobilinogen 4.0H, Urine Leukocyte Esterase 3+H, Urine WBC (Auto) TNTCH, Urine RBC (Auto) 17H, Urine Hyaline Casts (Auto) 0, Urine Bacteria (Auto) NEGATIVE, Urine Squamous Epithelial Cells 0, Urine Mucus (Auto) SMALL, Urine Sperm (Auto) 08/01/20 18:41: Immature Granulocyte % (Auto) 0.4, Neutrophils (%) (Auto) 59.4, Lymphocytes (%) (Auto) 23.8L, Monocytes (%) (Auto) 6.9, Eosinophils (%) (Auto) 8.7H, Basophils (%) (Auto) 0.8, Neutrophils # (Auto) 3.0, Lymphocytes # (Auto) 1.2L, Monocytes # (Auto) 0.4, Eosinophils # (Auto) 0.4, Basophils # (Auto) 0.0, Nucleated Red Blood Cells % (auto) 0.0, Anion Gap 6L, Glomerular Filtration Rate > 60.0, Calcium Level 9.6, Total Bilirubin 0.6, Direct Bilirubin 0.3H, Aspartate Amino Transf (AST/SGOT) 11, Alanine Aminotransferase (ALT/SGPT) 9L, Alkaline Phosphatase 70, Ammonia < 10, Total Protein 6.3L, Albumin 3.1L, Albumin/Globulin Ratio 1.0 CBC/BMP Laboratory Tests 08/01/20 18:41 Microbiology Microbiology 08/01/20 Urine Culture, Received Pending Home Medications Scheduled Famotidine (Famotidine) 40 Mg Tablet, 40 MG PO DAILY Fludrocortisone Acetate (Fludrocortisone Acetate) 0.1 Mg Tablet, 0.1 MG PO DAILY Furosemide (Furosemide) 20 Mg Tablet, 20 MG PO DAILY Gabapentin (Gabapentin) 250 Mg/5 Ml Solution, 250 MG PO BID Haloperidol Lactate (Haldol) 5 Mg/1 Ml Ampul, 2 MG IM STAT Lorazepam (Ativan) 0.5 Mg Tablet, 0.25 MG PO TID Use sublingually if unable to swallow Memantine HCl (Namenda) 10 Mg Tablet, 10 MG PO BID Mirtazapine (Remeron) 15 Mg Tablet, 15 MG PO QPM Nut.tx.impaired Digestive Fxn (Ensure Clear Therapeutic) 0.035 Gram-1 Kcal/Ml Liquid, 237 ML PO BID Potassium Chloride (Potassium Chloride) 20 Meq Tablet.er, 40 MEQ PO DAILY Quetiapine Fumarate (Quetiapine Fumarate) 100 Mg Tablet, 100 MG PO BID Scheduled PRN Acetaminophen (Mapap) 325 Mg Tablet, 650 MG PO Q4H PRN for PAIN OR FEVER Acetaminophen (Acetaminophen) 650 Mg Supp.rect, 650 MG KY Q4H PRN for PAIN / FEVER Bisacodyl (Dulcolax) 10 Mg Supp.rect, 10 MG KY DAILY PRN for CONSTIPATION Milk Of Magnesia (Milk of Magnesia) 2,400 Mg/10 Ml Oral.susp, 10 ML PO DAILY PRN for CONSTIPATION Sodium Chloride ([place] Saline Nasal Gel) 14.1 Gm Gel..gram., 1 APLCT TOP DAILY PRN for NASAL DRYNESS Sodium Phosphate,Mccreary-Dibasic (Enema Ready To Use) 133 Ml Enema, 1 JACLYN [place] DAILY PRN for CONSTIPATION Allergies Coded Allergies: No Known Drug Allergies (Verified Allergy, Unknown, 12/03/19) A-FIB/CHADSVASC A-FIB History Current/History of A-Fib/PAF?: No Current PO Anticoag Therapy: No BJ MIKE MD Aug 01, 2020 20:57
[2020-08-01] MEDS: DOCUSATE SODIUM 100MG CAPSULE PO SCH (21:00)
[2020-08-01] MEDS ORDERED: LORazepam 0.5 MG TAB PO SCH (21:00)
[2020-08-01] MEDS ORDERED: ATIV1TAB10 PO (21:04)
[2020-08-01] MEDS ORDERED: MOM30SS PO (21:04)
[2020-08-01] MEDS ORDERED: ENEMENE6 PR (21:04)
[2020-08-01] MEDS ORDERED: FURO20TA2 PO (21:04)
[2020-08-01] MEDS ORDERED: POTA1TAB14 PO (21:04)
[2020-08-01] MEDS ORDERED: FLUD0.1T PO (21:04)
[2020-08-01] MEDS ORDERED: DULC10SU2 PR (21:04)
[2020-08-01] MEDS ORDERED: SODIGEL TOP (21:04)
[2020-08-01] MEDS ORDERED: ACET650S3 PR (21:04)
[2020-08-01] MEDS ORDERED: [UNRECOGNIZED DRUG - CODE] PO (21:04)
[2020-08-01] MEDS ORDERED: GABA250S7 PO (21:06)
[2020-08-01 21:43] LABS: RSV AMPLIFICATION NEGATIVE (NEGATIVE)
[2020-08-01] MEDS ORDERED: PILL CUTTER 1 EACH XX PRN (22:25)
[2020-08-01] MEDS: LORazepam 2 MG/ML VIAL IM SCH (23:06)
[2020-08-01] MEDS ORDERED: HALOPERIDOL 5MG/ML VIAL (J1630 PER 1) As Ordered ONE (23:48)
[2020-08-02] VITALS: BP 130/66
[2020-08-02] MEDS: HALOPERIDOL 5MG/ML VIAL (J1630 PER 1) IM PRN ×3 (00:01→21:31)
[2020-08-02] MEDS: MEMANTINE 5MG TABLET (NAMENDA) PO SCH ×3 (00:20→22:06)
[2020-08-02] MEDS: MIRTAZAPINE 15 MG TAB PO SCH ×2 (00:20→22:07)
[2020-08-02] MEDS: QUEtiapine FUMARATE 100 MG TAB PO SCH ×3 (00:26→22:07)
[2020-08-02 07:24] LABS: HEMATOCRIT 32.8 % (42.0-52.0); HEMOGLOBIN 10.9 g/dl (13.5-17.5); MEAN CORPUSCULAR HEMOGLOBIN 32.2 pg (27.0-33.0); MEAN CORPUSCULAR HGB CONC 33.2 g/dl (32.0-36.5); MEAN CORPUSCULAR VOLUME 96.8 fl (80.0-96.0); PLATELET COUNT, AUTOMATED 189 10^3/uL (150-450); RED BLOOD COUNT 3.39 10^6/uL (4.30-6.10); WHITE BLOOD COUNT 6.2 10^3/uL (4.0-10.0)
[2020-08-02 07:29] LABS: BLOOD UREA NITROGEN 10 MG/DL (7-18); CALCIUM LEVEL 8.9 MG/DL (8.8-10.2); CARBON DIOXIDE LEVEL 30 MEQ/L (21-32); CHLORIDE LEVEL 113 MEQ/L (98-107); CREATININE FOR GFR 0.74 MG/DL (0.70-1.30); GLOMERULAR FILTRATION RATE > 60.0 (>42); GLUCOSE, FASTING 85 MG/DL (70-100); MAGNESIUM LEVEL 2.3 MG/DL (1.8-2.4); POTASSIUM SERUM 3.5 MEQ/L (3.5-5.1); SODIUM LEVEL 147 MEQ/L (136-145)
[2020-08-02] MEDS: ENOXAPARIN 40MG/0.4ML SYRINGE (J1650 PER 10MG) SC SCH (08:24)
[2020-08-02] MEDS: DOCUSATE SODIUM 100MG CAPSULE PO SCH ×2 (08:25→22:07)
[2020-08-02] MEDS: CEFDINIR 300 MG CAP (OMNICEF) PO SCH ×2 (08:25→22:07)
[2020-08-02] MEDS: LORazepam 2 MG/ML VIAL IM PRN ×3 (08:25→20:09)
[2020-08-02] MEDS: LORazepam 2 MG/ML VIAL IM SCH ×3 (08:26→22:07)
[2020-08-02] MEDS: POTASSIUM CHLORIDE 10 MEQ SR TABLET PO SCH (09:00)
[2020-08-02] MEDS ORDERED: BISACODYL 10 MG SUPP PR PRN (11:25)
[2020-08-02] MEDS ORDERED: FLEET ENEMA PR PRN (11:25)
--- NOTE | 2020-08-02 11:51 | IPNPDOC ---
Text Note Date of Service The patient was seen on 08/02/20. NOTE SUBJECTIVE: Patient was sleeping when I entered the room. Apparently he was somewhat agitated this morning, and he was given Ativan. I did not see the need to awaken him at this time. His girlfriend is in the room and she reports that he is usually quite pleasant, and his recent behavior and is certainly a large departure from normal. PHYSICAL EXAMINATION: General: Sleeping in the bed. Does not appear to be in any acute distress at this time. Respiratory: lungs CTAB, no wheeze, no rales, no crackles CVS: RRR, normal S1, S2, no murmurs Abdo: soft, no masses, no hepatosplenomegaly, BS+ Extremities: pulses 2+ at the radial Psych: Currently sleeping ASSESSMENT: 74-year-old male with history of dementia and behaviors as well as hypertension and GERD, presented to the ER from [facility] for increase in aggressive behavior with agitation, particularly toward staff and other residents. Found to have a UTI in the ER, admitted for management of UTI as well as delirium. PLAN: Delirium with aggressive behavior on dementia - patient has a prior hx of dementia with documented aggressive behaviors - found to have UTI, perhaps etiology of delirium - will treat UTI, and continue psych meds - c/w seroquel, mirtazepine, memantine - IM haldol prn - sitter ordered UTI - UA dirty - Urine culture still pending - given 1g IM ceftriaxone in the ER - given patient's behavior, discussed with nursing, in order to avoid endangering staff, will defer IV placement - will continue PO cefdinir empirically until sensitivities from urine culture return HTN - does not take meds - monitor Edema - patient takes lasix 20 mg daily - Resume with home dose of lasix when sodium is back to normal Hx of orthostatic hypotension? - med rec noted florinef - will request records from [facility] - Restart florinef when sodium is back to normal Hypernatremia - as above - sodium restricted diet DVT ppx: lovenox 40 mg sc daily Dispo: Return to [facility] once appropriate behaviorally. VS,Fishbone, I+O VS, Fishbone, I+O Laboratory Tests 08/01/20 18:41 08/02/20 06:25 Vital Signs Date Time Temp Pulse Resp B/P (MAP) Pulse Ox O2 Delivery O2 Flow Rate FiO2 08/02/20 00:00 97.6 93 20 130/66 (87) 96 Room Air I&O- Last 24 Hours up to 6 AM 08/02/20 06:00 Intake Total 300 ml Output Total 150 ml Balance 150 ml OLIMPIA TORRES DO August 02, 2020 11:51
[2020-08-02 14:00] VITALS: BP 110/54
[2020-08-03 06:00] VITALS: BP 133/79
[2020-08-03 07:53] LABS: BASO # 0.1 10^3/uL (0.0-0.2); BASO % 0.6 % (0.0-1.0); EOS # 0.2 10^3/uL (0.0-0.5); EOS % 2.2 % (0.0-3.0); HEMOGLOBIN 12.3 g/dl (13.5-17.5); LYMPH # 1.1 10^3/uL (1.5-5.0); LYMPH % 13.9 % (24.0-44.0); MEAN CORPUSCULAR HEMOGLOBIN 31.6 pg (27.0-33.0); MEAN CORPUSCULAR HGB CONC 33.2 g/dl (32.0-36.5); MEAN CORPUSCULAR VOLUME 95.1 fl (80.0-96.0); MONO # 0.5 10^3/uL (0.0-0.8); MONO % 6.2 % (2.0-8.0); NEUTROPHILS # 6.2 10^3/uL (1.5-8.5); NEUTROPHILS % 76.9 % (36.0-66.0); PLATELET COUNT, AUTOMATED 198 10^3/uL (150-450); RED BLOOD COUNT 3.89 10^6/uL (4.30-6.10)
[2020-08-03 08:17] LABS: BLOOD UREA NITROGEN 10 MG/DL (7-18); CALCIUM LEVEL 9.2 MG/DL (8.8-10.2); CARBON DIOXIDE LEVEL 27 MEQ/L (21-32); CHLORIDE LEVEL 108 MEQ/L (98-107); CREATININE FOR GFR 0.76 MG/DL (0.70-1.30); GLOMERULAR FILTRATION RATE > 60.0 (>42); GLUCOSE, FASTING 80 MG/DL (70-100); MAGNESIUM LEVEL 2.4 MG/DL (1.8-2.4); SODIUM LEVEL 142 MEQ/L (136-145)
[2020-08-03] MEDS ORDERED: FLUDROCORTISONE ACETATE 0.1 MG TAB PO SCH (09:00)
[2020-08-03] MEDS ORDERED: FUROSEMIDE 20 MG TAB PO SCH (09:00)
[2020-08-03] MEDS: DOCUSATE SODIUM 100MG CAPSULE PO SCH ×2 (09:00→21:00)
[2020-08-03] MEDS: POTASSIUM CHLORIDE 10 MEQ SR TABLET PO SCH ×2 (09:43→11:00)
[2020-08-03] MEDS: LORazepam 2 MG/ML VIAL IM SCH ×3 (09:43→21:00)
[2020-08-03] MEDS: QUEtiapine FUMARATE 100 MG TAB PO SCH ×4 (09:43→21:12)
[2020-08-03] MEDS: LevoFLOXacin 500 MG TABLET PO SCH ×3 (09:43→12:30)
[2020-08-03] MEDS: MEMANTINE 5MG TABLET (NAMENDA) PO SCH ×4 (09:43→21:12)
--- NOTE | 2020-08-03 09:43 | IPNPDOC ---
Text Note Date of Service The patient was seen on 08/03/20. NOTE Subjective: Patient is a 74-year-old male with a PMHx of Dementia (with behavioral problems), HTN, GERD who presented to the ER from [facility]. Increased aggressive behavior and agitation. Patient was suspected of having urinary tract infection and was admitted to hospital service for further evaluation and treatment. Patient was seen and examined at the bedside. Currently patient is sitting up in bed, appears to be comfortable, not in any acute distress, unable to answer any questions specifically. Objective: Vitals (See below) General: Lying in bed, no acute distress, comfortable, awake and alert HEENT: NC, AT CVS: +S1S2 Lungs: Fair air entry b/l, no evidence of wheezing, rhonchi, rales Abdomen: Soft, ND, NT Extremities: - Edema, - Calf tenderness Assessment and plan: Delirium with aggressive behavior on dementia - possibly exacerbated by urinary tract infection - Patient has a prior hx of dementia with documented aggressive behaviors - c/w Seroquel, mirtazapine, memantine - IM haldol prn - sitter ordered - c/w UTI treatment (see below) UTI - Urine culture 08/01: Pseudomonas aeruginosa, Streptococcus aureus - Will DC Cefdinir; Will start Levofloxacin based on susceptibilities HTN - Blood pressure remains well controlled - Currently not on any blood pressure medications Chronic edema - LE do not reveal any significant edema currently - Will resume Furosemide within 24 hours Hx of orthostatic hypotension? - c/w Fludrocortisone s/p Hypernatremia DVT prophylaxis - c/w Lovenox Disposition: - Patient will return back to [facility] once urinary tract infection has been treated VS,Fishbone, I+O VS, Fishbone, I+O Laboratory Tests 08/03/20 07:15 Vital Signs Date Time Temp Pulse Resp B/P (MAP) Pulse Ox O2 Delivery O2 Flow Rate FiO2 08/03/20 06:00 100 20 133/79 (97) 08/02/20 14:00 98.4 96 08/02/20 00:00 Room Air I&O- Last 24 Hours up to 6 AM 08/03/20 05:59 Intake Total 330 ml Output Total 1000 ml Balance -670 ml PRINCESS PANIAGUA MD August 03, 2020 09:43
[2020-08-03] MEDS: ENOXAPARIN 40MG/0.4ML SYRINGE (J1650 PER 10MG) SC SCH (09:44)
[2020-08-03] MEDS: HALOPERIDOL 5MG/ML VIAL (J1630 PER 1) IM PRN (13:02)
[2020-08-03] MEDS: LORazepam 2 MG/ML VIAL IM PRN (14:17)
[2020-08-03] MEDS ORDERED: D5W/0.45% SODIUM CHLORIDE 1,000 ML IV SCH (16:00)
[2020-08-03] MEDS ORDERED: HALOPERIDOL 5MG/ML VIAL (J1630 PER 1) IV PRN (19:30)
[2020-08-03] MEDS: LORazepam 2 MG/ML VIAL IV PRN (20:28)
[2020-08-03] MEDS: MIRTAZAPINE 15 MG TAB PO SCH (21:12)
[2020-08-04] MEDS: LORazepam 2 MG/ML VIAL IV PRN (04:17)
[2020-08-04] MEDS: LevoFLOXacin 500 MG TABLET PO SCH (04:49)
[2020-08-04 06:00] VITALS: BP 134/85
[2020-08-04 06:52] LABS: BASO % 0.7 % (0.0-1.0); EOS # 0.4 10^3/uL (0.0-0.5); EOS % 7.2 % (0.0-3.0); HEMATOCRIT 38.9 % (42.0-52.0); HEMOGLOBIN 13.3 g/dl (13.5-17.5); LYMPH # 1.1 10^3/uL (1.5-5.0); LYMPH % 18.4 % (24.0-44.0); MEAN CORPUSCULAR HEMOGLOBIN 32.1 pg (27.0-33.0); MEAN CORPUSCULAR HGB CONC 34.2 g/dl (32.0-36.5); MONO # 0.4 10^3/uL (0.0-0.8); MONO % 7.4 % (2.0-8.0); NEUTROPHILS # 3.9 10^3/uL (1.5-8.5); NEUTROPHILS % 66.1 % (36.0-66.0); PLATELET COUNT, AUTOMATED 183 10^3/uL (150-450); RED BLOOD COUNT 4.14 10^6/uL (4.30-6.10); WHITE BLOOD COUNT 5.8 10^3/uL (4.0-10.0)
[2020-08-04 07:15] LABS: BLOOD UREA NITROGEN 8 MG/DL (7-18); CALCIUM LEVEL 9.7 MG/DL (8.8-10.2); CARBON DIOXIDE LEVEL 27 MEQ/L (21-32); CHLORIDE LEVEL 108 MEQ/L (98-107); CREATININE FOR GFR 0.78 MG/DL (0.70-1.30); GLOMERULAR FILTRATION RATE > 60.0 (>42); GLUCOSE, FASTING 97 MG/DL (70-100); MAGNESIUM LEVEL 2.5 MG/DL (1.8-2.4); POTASSIUM SERUM 3.5 MEQ/L (3.5-5.1); SODIUM LEVEL 142 MEQ/L (136-145)
[2020-08-04] MEDS: LORazepam 2 MG/ML VIAL IM SCH (08:17)
[2020-08-04] MEDS: ENOXAPARIN 40MG/0.4ML SYRINGE (J1650 PER 10MG) SC SCH (08:40)
[2020-08-04] MEDS: MEMANTINE 5MG TABLET (NAMENDA) PO SCH ×3 (08:41→22:17)
[2020-08-04] MEDS: POTASSIUM CHLORIDE 10 MEQ SR TABLET PO SCH ×2 (08:41→09:00)
[2020-08-04] MEDS: QUEtiapine FUMARATE 100 MG TAB PO SCH ×2 (08:42→09:00)
[2020-08-04] MEDS: DOCUSATE SODIUM 100MG CAPSULE PO SCH ×3 (08:42→22:27)
--- NOTE | 2020-08-04 09:19 | IPNPDOC ---
Text Note Date of Service The patient was seen on 08/04/20. NOTE Subjective: Patient is a 74-year-old male with a PMHx of Dementia (with behavioral problems), HTN, GERD who presented to the ER from [facility]. Increased aggressive behavior and agitation. Patient was suspected of having urinary tract infection and was admitted to hospital service for further evaluation and treatment. Patient was seen and examined at the bedside. Patient appears very sleepy this morning. Unable to answer any specific questions. Objective: Vitals (See below) General: Patient is lying in bed, appears to be comfortable, not in any acute distress, drowsy HEENT: NC, AT CVS: +S1S2 Lungs: Air entry is fair bilaterally without any evidence of wheezing, crackles, rhonchi Abdomen: Soft, nondistended, nontender Extremities: No evidence of edema, - Calf tenderness Assessment and plan: Delirium with aggressive behavior on dementia - possibly exacerbated by urinary tract infection - Patient has a prior history of dementia with documented aggressive behaviors - This morning patient appears to be heavily sedated - c/w Seroquel, mirtazapine, memantine - Will DC Ativan / Will reduce dose of Haldol - c/w bedside sitter - c/w UTI treatment (see below) UTI - Urine culture 08/01: Pseudomonas aeruginosa, Streptococcus aureus, Staph aureus - Will start Levofloxacin based on susceptibilities (Day #2); s/p Cefdinir; HTN - Blood pressure remains well controlled - Currently not on any blood pressure medications Chronic edema - LE do not reveal any significant edema currently - Furosemide still on hold for now Hx of orthostatic hypotension? - c/w Fludrocortisone s/p Hypernatremia DVT prophylaxis - c/w Lovenox Disposition: - Patient will return back to [facility] once urinary tract infection has been treated - Anticipate DC within 24 hours VS,Fishbone, I+O VS, Fishbone, I+O Laboratory Tests 08/04/20 06:33 Vital Signs Date Time Temp Pulse Resp B/P (MAP) Pulse Ox O2 Delivery O2 Flow Rate FiO2 08/04/20 06:00 97.2 84 18 134/85 (101) Room Air 08/02/20 14:00 96 I&O- Last 24 Hours up to 6 AM 08/04/20 06:00 Intake Total 1080 ml Output Total 3650 ml Balance -2570 ml PANIAGUA,VIJESH MD August 04, 2020 09:19
[2020-08-04 14:00] VITALS: BP 139/78
[2020-08-04] MEDS: risperiDONE 1 MG TAB PO SCH ×2 (16:32→22:18)
[2020-08-04] MEDS: HALOPERIDOL 5MG/ML VIAL (J1630 PER 1) IV PRN ×2 (18:54→23:59)
--- NOTE | 2020-08-04 19:29 | MHIPNPDOC ---
[facility] Progress Note Progress Note DATE OF SERVICE: 08/04/20 This customs entry writer spoke with Dr. Espinoza regarding the patient. I have recommended to start giving him Risperdal 1 mg PO TID, I have ordered it already. According to staff, the patient has been on this medication before and has had a good response to it. He will be started on that medication today, so I have d iscontinued Seroquel 100 mgs PO BID. He can continue to receive Haldol 1 mg IV Q6H PRN. I will see him tomorrow. This afternoon I was told he was sleeping and would have been counterproductive to wake him up since it would have made him irritable. I will follow u tomorrow. Dr. Espinoza has been informed. Vital Signs Vital Signs Date Time Temp Pulse Resp B/P (MAP) Pulse Ox O2 Delivery O2 Flow Rate FiO2 08/04/20 14:00 98.2 95 19 139/78 (98) 96 Room Air Laboratory Data 24H Labs Laboratory Tests 2 08/04/20 06:33: Immature Granulocyte % (Auto) 0.2, Neutrophils (%) (Auto) 66.1H, Lymphocytes (%) (Auto) 18.4L, Monocytes (%) (Auto) 7.4, Eosinophils (%) (Auto) 7.2H, Basophils (%) (Auto) 0.7, Neutrophils # (Auto) 3.9, Lymphocytes # (Auto) 1.1L, Monocytes # (Auto) 0.4, Eosinophils # (Auto) 0.4, Basophils # (Auto) 0.0, Nucleated Red Blood Cells % (auto) 0.0, Anion Gap 7L, Glomerular Filtration Rate > 60.0, Calcium Level 9.7, Magnesium Level 2.5H CBC/BMP Laboratory Tests 08/04/20 06:33 Current Medications Current Medications Medications (Trade) Dose Ordered Sig/Stacy Route PRN Reason Start Time Stop Time Status Last Admin Dose Admin Acetaminophen (Tylenol Tab) 650 mg Q4H PRN PO PAIN OR FEVER 08/01/20 20:45 Al Hydrox/Mg Hydrox/Simethicone (Mylanta) 30 ml DAILY PRN PO DYSPEPSIA 08/01/20 20:45 Bisacodyl (Dulcolax Suppository) 10 mg DAILY PRN WI CONSTIPATION 08/02/20 11:25 Cefdinir (Omnicef) 300 mg BID PO 08/02/20 09:00 08/03/20 07:01 DC 08/02/20 08:25 Dextrose/Sodium Chloride 1,000 ml @ 60 mls/hr [id number] IV 08/03/20 16:00 08/04/20 08:39 DC 08/03/20 17:45 Docusate Sodium (Colace) 100 mg BID PO 08/01/20 21:00 08/02/20 08:25 Enoxaparin Sodium (Lovenox) 40 mg DAILY SC 08/02/20 09:00 08/04/20 08:40 Fludrocortisone Acetate (Florinef) 0.1 mg DAILY PO 08/03/20 09:00 08/02/20 11:50 DC Furosemide (Lasix) 20 mg DAILY PO 08/03/20 09:00 08/02/20 11:50 DC Haloperidol (Haldol) 1 mg Q6HP PRN IV AGITATION 08/04/20 07:25 Haloperidol (Haldol) 2 mg Q6HP PRN IM AGITATION 08/01/20 23:45 08/03/20 19:30 DC 08/03/20 13:02 Haloperidol (Haldol) 2 mg Q6HP PRN IV AGITATION 08/03/20 19:30 08/04/20 07:24 DC 08/04/20 03:16 Home Med (Med Rec Complete!) ASDIRECTED XX 08/01/20 21:10 08/01/20 21:10 DC Levofloxacin (Levaquin) 500 mg DAILY@06 PO 08/03/20 06:00 08/04/20 04:49 Lorazepam (Ativan) 0.25 mg TID IM 08/01/20 21:00 08/04/20 10:00 DC 08/04/20 08:17 Lorazepam (Ativan) 0.25 mg TID PO 08/01/20 21:00 Cancel Lorazepam (Ativan) 2 mg Q6HP PRN IM AGITATION 08/01/20 23:45 08/03/20 19:30 DC 08/03/20 14:17 Lorazepam (Ativan) 2 mg Q6HP PRN IV AGITATION 08/03/20 19:30 08/04/20 07:24 DC 08/04/20 04:17 Magnesium Hydroxide (Milk Of Magnesia) 30 ml DAILY PRN PO CONSTIPATION 08/01/20 20:45 Memantine (Namenda) 10 mg BID PO 08/01/20 21:00 08/03/20 21:12 Mirtazapine (Remeron) 15 mg QPM PO 08/01/20 21:00 08/03/20 21:12 Potassium Chloride (Micro-K Extencaps) 40 meq DAILY PO 08/02/20 09:00 Quetiapine Fumarate (SEROquel) 100 mg BID PO 08/01/20 21:00 08/04/20 15:57 DC 08/03/20 21:12 Risperidone (RisperDAL) 1 mg TID PO 08/04/20 16:00 08/04/20 16:32 Sodium Biphosphate/ Sodium Phosphate (Fleet Enema) 1 ea DAILY PRN WI CONSTIPATION 08/02/20 11:25 Allergies Coded Allergies: No Known Drug Allergies (Verified Allergy, Unknown, 12/03/19) DARCY LIM MD August 04, 2020 18:24
[2020-08-04] MEDS: MIRTAZAPINE 15 MG TAB PO SCH (22:18)
[2020-08-04] MEDS: ACETAMINOPHEN TAB 650MG DOSE (2X325MG) PO PRN (22:18)
[2020-08-04] MEDS ORDERED: LORazepam 2 MG/ML VIAL IM PRN (23:50)
--- NOTE | 2020-08-05 00:04 | IPNPDOC ---
Text Note Date of Service The patient was seen on 08/04/20. NOTE Alerted by nursing staff at 2300 that patient was becoming agitated. At this t almas I went and evaluated patient who was being physically aggressive towards staff, kicking, punching and grabbing. According to nursing staff, patient has been like this for some time and has already tried to pull his iv and has been repeatedly pulling at his johnston catheter. Patient has also tried to roll out of bed several times. Patient had 1mg haldol at 1856 and 1mg risperdal at 2218. Nursing staff has been attempting to redirect and calm him for several hours. I am unable to elicit any history from him due to his dementia, delirium and agitation. Patient's speech is clear but nonsensical. I am having a patient sitter come be with patient and am repeating a 1mg dose of im haldol and will give 2mg im ativan at this time if haldol does not lessen his agitation. VS,Fishbone, I+O VS, Fishbone, I+O Laboratory Tests 08/04/20 06:33 Vital Signs Date Time Temp Pulse Resp B/P (MAP) Pulse Ox O2 Delivery O2 Flow Rate FiO2 08/04/20 14:00 98.2 95 19 139/78 (98) 96 Room Air I&O- Last 24 Hours up to 6 AM 08/04/20 06:00 Intake Total 1080 ml Output Total 3650 ml Balance -2570 ml MADHU FOX August 05, 2020 00:04
[2020-08-05] MEDS: LevoFLOXacin 500 MG TABLET PO SCH (05:52)
[2020-08-05 06:36] LABS: BASO % 0.6 % (0.0-1.0); EOS # 0.1 10^3/uL (0.0-0.5); EOS % 0.9 % (0.0-3.0); HEMATOCRIT 41.2 % (42.0-52.0); HEMOGLOBIN 13.2 g/dl (13.5-17.5); LYMPH # 1.1 10^3/uL (1.5-5.0); LYMPH % 17.4 % (24.0-44.0); MEAN CORPUSCULAR VOLUME 99.8 fl (80.0-96.0); MONO # 0.5 10^3/uL (0.0-0.8); MONO % 7.2 % (2.0-8.0); NEUTROPHILS # 4.8 10^3/uL (1.5-8.5); NEUTROPHILS % 73.4 % (36.0-66.0); PLATELET COUNT, AUTOMATED 188 10^3/uL (150-450); RED BLOOD COUNT 4.13 10^6/uL (4.30-6.10); WHITE BLOOD COUNT 6.5 10^3/uL (4.0-10.0)
[2020-08-05 06:48] LABS: BLOOD UREA NITROGEN 13 MG/DL (7-18); CALCIUM LEVEL 9.3 MG/DL (8.8-10.2); CARBON DIOXIDE LEVEL 20 MEQ/L (21-32); CHLORIDE LEVEL 112 MEQ/L (98-107); CREATININE FOR GFR 0.85 MG/DL (0.70-1.30); GLOMERULAR FILTRATION RATE > 60.0 (>42); GLUCOSE, FASTING 105 MG/DL (70-100); MAGNESIUM LEVEL 2.3 MG/DL (1.8-2.4); POTASSIUM SERUM 4.3 MEQ/L (3.5-5.1); SODIUM LEVEL 140 MEQ/L (136-145)
[2020-08-05] MEDS: DOCUSATE SODIUM 100MG CAPSULE PO SCH ×2 (07:51→21:00)
[2020-08-05] MEDS: POTASSIUM CHLORIDE 10 MEQ SR TABLET PO SCH (07:51)
[2020-08-05] MEDS ORDERED: LORazepam 2 MG/ML VIAL IM PRN (08:00)
[2020-08-05] MEDS: ENOXAPARIN 40MG/0.4ML SYRINGE (J1650 PER 10MG) SC SCH (08:14)
[2020-08-05] MEDS: MEMANTINE 5MG TABLET (NAMENDA) PO SCH ×2 (08:14→20:46)
[2020-08-05] MEDS ORDERED: risperiDONE 1 MG TAB PO SCH (09:00)
[2020-08-05 14:00] VITALS: BP 142/80
--- NOTE | 2020-08-05 14:29 | IPNPDOC ---
Text Note Date of Service The patient was seen on 08/05/20. NOTE Subjective: Patient is a 74-year-old male with a PMHx of Dementia (with behavioral problems), HTN, GERD who presented to the ER from [facility]. Increased aggressive behavior and agitation. Patient was suspected of having urinary tract infection and was admitted to hospital service for further evaluation and treatment. Patient was seen and examined at the bedside. Patient is laying in bed, appears to be slightly agitated. Objective: Vitals (See below) General: Patient is laying in bed, appears agitated, awake / alert HEENT: NC, AT CVS: +S1S2 Lungs: There appears to be fair air entry bilaterally without evidence of wheezing, crackles or rhonchi Abdomen: Abdomen again is soft without any distention or tenderness Extremities: Lower extremities do not reveal any significant Assessment and plan: Delirium with aggressive behavior on dementia - possibly exacerbated by urinary tract infection - Patient has a prior history of dementia with documented aggressive behaviors - This morning patient appears to be heavily sedated - c/w Seroquel, mirtazapine, memantine - Patient is a Seroquel increased this morning, and risperidone discontinued - Will continue Ativan and Haldol at reduce dose - c/w bedside sitter - c/w UTI treatment (see below) - Psychiatry on consultation; appreciate their input - Will attempt to reach out to attending, Dr. Leslie Ellis at [facility] to determine baseline level of function UTI - Urine culture 08/01: Pseudomonas aeruginosa, Streptococcus aureus, Staph aureus - c/w Levofloxacin based on susceptibilities (Day #3); s/p Cefdinir HTN - Blood pressure remains well controlled - Currently not on any blood pressure medications Chronic edema - LE do not reveal any significant edema currently - Furosemide still on hold for now Hx of orthostatic hypotension? - c/w Fludrocortisone s/p Hypernatremia DVT prophylaxis - c/w Lovenox Disposition: - Patient will return back to [facility] once urinary tract infection has been treated - Will reach out to provider at [facility] for further information about baseline VS,Fishbone, I+O VS, Fishbone, I+O Laboratory Tests 08/05/20 06:10 Vital Signs Date Time Temp Pulse Resp B/P (MAP) Pulse Ox O2 Delivery O2 Flow Rate FiO2 08/05/20 06:00 98.5 111 20 100 Room Air 08/04/20 14:00 139/78 (98) I&O- Last 24 Hours up to 6 AM 08/05/20 06:00 Intake Total 455 ml Output Total 875 ml Balance -420 ml PRINCESS PANIAGUA MD August 05, 2020 14:29
[2020-08-05] MEDS: D5W/0.45% SODIUM CHLORIDE 1,000 ML IV SCH (15:41)
--- NOTE | 2020-08-05 18:29 | MHIPNPDOC ---
[facility] Progress Note Progress Note DATE OF SERVICE: 08/05/20 HISTORY: As per Dr. Epsinoza: "Patient is a 74-year-old male with a PMHx of Dementia (with behavioral problems), HTN, GERD who presented to the ER from [facility]. Increased aggressive behavior and agitation. Patient was suspected of having urinary tract infection and was admitted to hospital service for further evaluation and treatment." VITAL SIGNS: See below. NEW TEST RESULTS: See below CURRENT MEDICATIONS: See below. MENTAL STATUS EXAMINATION: Patient is a 74-year old male, who is alert, dressed in hospital gown, sitting on his hospital bed, with good hygiene. Speech: Not spontaneous, not fluent. At times he mumbles some words and phrases but he doesn't get to finish those phrases. Volume is low, rate and tone are normal. Language skills are limited, as a result of his illness (neurocognitive disorder). Thought processes including: disorganized, has thought blocking Thought content: unable to assess, the patient is not able to answer questions. Abstract reasoning, and computation: unable to asses, patient has cognitive and verbal deficits as a result of his illness. Description of associations: patient has a neurocognitive disorder Description of abnormal or psychotic thoughts: Unable to assess, patient is not able to respond my questions. He has conversations with himself, he mumbles. Judgment: poor. Insight: poor. Orientation: not oriented. Recent and remote memory: patient has a neurocognitive disorder, memory is deficient. Attention span and concentration: easily distracted. Language: poverty of language secondary to neurocognitive disorder Fund of knowledge: unable to assess Mood: constricted/flat. Affect: congruent with mood DIAGNOSES: 1. Neurocognitive disorder 2. HTN 3. GERD ASSESSMENT: The patient was seen in his room, laying in bed. He was calm when I walked into his room but he became a little restless as I started asking him questions. His sitter explained he had been OK, not agitated, not anxious. He had gloves on which made difficult for him to grab at things. He kept trying to take them off, tried to sit up but was not aggressive, not violent. I spoke with the Nursing Staff who reported that he had not been violent, not aggressive towards then and that compared to yesterday they had seen an improvement. At this time he seems to be well controlled but this resume writer will re assess tomorrow and will continue to communicate with Dr. Espinoza. I recommend an ECG since Seroquel, like all other psychiatric medications pose a risk for QTC prolongation. MANAGEMENT PLAN: Continue with current treatment, will re assess tomorrow TIME SPENT: 20 minutes. Vital Signs Vital Signs Date Time Temp Pulse Resp B/P (MAP) Pulse Ox O2 Delivery O2 Flow Rate FiO2 08/05/20 14:00 99.1 104 19 142/80 (100) 99 Room Air Laboratory Data 24H Labs Laboratory Tests 2 08/05/20 06:10: Immature Granulocyte % (Auto) 0.5, Neutrophils (%) (Auto) 73.4H, Lymphocytes (%) (Auto) 17.4L, Monocytes (%) (Auto) 7.2, Eosinophils (%) (Auto) 0.9, Basophils (%) (Auto) 0.6, Neutrophils # (Auto) 4.8, Lymphocytes # (Auto) 1.1L, Monocytes # (Auto) 0.5, Eosinophils # (Auto) 0.1, Basophils # (Auto) 0.0, Nucleated Red Blood Cells % (auto) 0.3H, Anion Gap 8, Glomerular Filtration Rate > 60.0, Calcium Level 9.3, Magnesium Level 2.3 CBC/BMP Laboratory Tests 08/05/20 06:10 Current Medications Current Medications Medications (Trade) Dose Ordered Sig/Stacy Route PRN Reason Start Time Stop Time Status Last Admin Dose Admin Acetaminophen (Tylenol Tab) 650 mg Q4H PRN PO PAIN OR FEVER 08/01/20 20:45 08/04/20 22:18 Al Hydrox/Mg Hydrox/Simethicone (Mylanta) 30 ml DAILY PRN PO DYSPEPSIA 08/01/20 20:45 Bisacodyl (Dulcolax Suppository) 10 mg DAILY PRN [place] CONSTIPATION 08/02/20 11:25 Cefdinir (Omnicef) 300 mg BID PO 08/02/20 09:00 08/03/20 07:01 DC 08/02/20 08:25 Dextrose/Sodium Chloride 1,000 ml @ 60 mls/hr [id number] IV 08/03/20 16:00 08/04/20 08:39 DC 08/03/20 17:45 Dextrose/Sodium Chloride 1,000 ml @ 60 mls/hr [id number] IV 08/05/20 14:25 08/05/20 15:41 Docusate Sodium (Colace) 100 mg BID PO 08/01/20 21:00 08/02/20 08:25 Enoxaparin Sodium (Lovenox) 40 mg DAILY SC 08/02/20 09:00 08/05/20 08:14 Fludrocortisone Acetate (Florinef) 0.1 mg DAILY PO 08/03/20 09:00 08/02/20 11:50 DC Furosemide (Lasix) 20 mg DAILY PO 08/03/20 09:00 08/02/20 11:50 DC Haloperidol (Haldol) 1 mg Q6HP PRN IV AGITATION 08/04/20 07:25 08/05/20 07:08 DC 08/04/20 23:59 Haloperidol (Haldol) 2 mg Q6HP PRN IM AGITATION 08/01/20 23:45 08/03/20 19:30 DC 08/03/20 13:02 Haloperidol (Haldol) 2 mg Q6HP PRN IV AGITATION 08/03/20 19:30 08/04/20 07:24 DC 08/04/20 03:16 Home Med (Med Rec Complete!) ASDIRECTED XX 08/01/20 21:10 08/01/20 21:10 DC Levofloxacin (Levaquin) 500 mg DAILY@06 PO 08/03/20 06:00 08/05/20 05:52 Lorazepam (Ativan) 0.25 mg TID IM 08/01/20 21:00 08/04/20 10:00 DC 08/04/20 08:17 Lorazepam (Ativan) 0.25 mg TID PO 08/01/20 21:00 Cancel Lorazepam (Ativan) 0.75 mg TID PRN IM AGITATION/Anxiety 08/05/20 08:00 08/05/20 08:13 Lorazepam (Ativan) 2 mg Q6HP PRN IM AGITATION 08/01/20 23:45 08/03/20 19:30 DC 08/03/20 14:17 Lorazepam (Ativan) 2 mg Q6HP PRN IM AGITATION 08/04/20 23:50 08/05/20 07:08 DC Lorazepam (Ativan) 2 mg Q6HP PRN IV AGITATION 08/03/20 19:30 08/04/20 07:24 DC 08/04/20 04:17 Magnesium Hydroxide (Milk Of Magnesia) 30 ml DAILY PRN PO CONSTIPATION 08/01/20 20:45 Memantine (Namenda) 10 mg BID PO 08/01/20 21:00 08/05/20 08:14 Mirtazapine (Remeron) 15 mg QPM PO 08/01/20 21:00 08/04/20 22:18 Potassium Chloride (Micro-K Extencaps) 40 meq DAILY PO 08/02/20 09:00 Quetiapine Fumarate (SEROquel) 100 mg BID PO 08/01/20 21:00 08/04/20 15:57 DC 08/03/20 21:12 Quetiapine Fumarate (SEROquel) 200 mg BID PO 08/05/20 21:00 Risperidone (RisperDAL) 1 mg BID PO 08/05/20 09:00 08/05/20 09:30 DC 08/05/20 08:14 Risperidone (RisperDAL) 1 mg TID PO 08/04/20 16:00 08/05/20 07:08 DC 08/04/20 22:18 Sodium Biphosphate/ Sodium Phosphate (Fleet Enema) 1 ea DAILY PRN [place] CONSTIPATION 08/02/20 11:25 Allergies Coded Allergies: No Known Drug Allergies (Verified Allergy, Unknown, 12/03/19) DARCY LIM MD August 05, 2020 18:19
[2020-08-05] MEDS: MIRTAZAPINE 15 MG TAB PO SCH (20:46)
[2020-08-05] MEDS: ACETAMINOPHEN TAB 650MG DOSE (2X325MG) PO PRN (20:47)
[2020-08-05] MEDS ORDERED: QUEtiapine FUMARATE 200 MG TAB PO SCH (21:00)
[2020-08-06] MEDS: LevoFLOXacin 500 MG TABLET PO SCH (06:12)
[2020-08-06] MEDS: D5W/0.45% SODIUM CHLORIDE 1,000 ML IV SCH (06:12)
[2020-08-06 08:25] LABS: BASO % 0.5 % (0.0-1.0); EOS # 0.3 10^3/uL (0.0-0.5); EOS % 5.1 % (0.0-3.0); HEMOGLOBIN 12.6 g/dl (13.5-17.5); LYMPH # 1.3 10^3/uL (1.5-5.0); LYMPH % 21.1 % (24.0-44.0); MEAN CORPUSCULAR HEMOGLOBIN 32.4 pg (27.0-33.0); MEAN CORPUSCULAR HGB CONC 34.1 g/dl (32.0-36.5); MEAN CORPUSCULAR VOLUME 95.1 fl (80.0-96.0); MONO # 0.5 10^3/uL (0.0-0.8); MONO % 7.5 % (2.0-8.0); NEUTROPHILS # 4.1 10^3/uL (1.5-8.5); NEUTROPHILS % 65.5 % (36.0-66.0); PLATELET COUNT, AUTOMATED 208 10^3/uL (150-450); RED BLOOD COUNT 3.89 10^6/uL (4.30-6.10); WHITE BLOOD COUNT 6.3 10^3/uL (4.0-10.0)
[2020-08-06 08:53] LABS: BLOOD UREA NITROGEN 12 MG/DL (7-18); CALCIUM LEVEL 9.3 MG/DL (8.8-10.2); CARBON DIOXIDE LEVEL 28 MEQ/L (21-32); CHLORIDE LEVEL 108 MEQ/L (98-107); CREATININE FOR GFR 0.72 MG/DL (0.70-1.30); GLOMERULAR FILTRATION RATE > 60.0 (>42); GLUCOSE, FASTING 100 MG/DL (70-100); MAGNESIUM LEVEL 2.4 MG/DL (1.8-2.4); POTASSIUM SERUM 3.8 MEQ/L (3.5-5.1); SODIUM LEVEL 142 MEQ/L (136-145)
[2020-08-06] MEDS: POTASSIUM CHLORIDE 10 MEQ SR TABLET PO SCH (09:00)
[2020-08-06] MEDS: DOCUSATE SODIUM 100MG CAPSULE PO SCH ×2 (09:00→20:33)
[2020-08-06] MEDS: ENOXAPARIN 40MG/0.4ML SYRINGE (J1650 PER 10MG) SC SCH (09:18)
[2020-08-06] MEDS: QUEtiapine FUMARATE 50MG TAB PO SCH ×2 (09:18→20:32)
[2020-08-06] MEDS: QUEtiapine FUMARATE 200 MG TAB PO SCH ×2 (09:18→20:32)
[2020-08-06] MEDS: MEMANTINE 5MG TABLET (NAMENDA) PO SCH ×2 (09:18→20:32)
[2020-08-06] MEDS ORDERED: QUET100T2 PO (09:31)
--- NOTE | 2020-08-06 12:09 | IPNPDOC ---
Text Note Date of Service The patient was seen on 08/06/20. NOTE Subjective: Patient is a 74-year-old male with a PMHx of Dementia (with behavioral problems), HTN, GERD who presented to the ER from [facility]. Increased aggressive behavior and agitation. Patient was suspected of having urinary tract infection and was admitted to hospital service for further evaluation and treatment. Patient was seen and examined at the bedside. This morning patient was able to say good morning upon arrival reported his name was unsure of place or time, however was cooperative. Did report that he was hungry. Objective: Vitals (See below) General: Patient appear to be sitting up in bed, comfortable, not in any acute distress, cooperative, awake and alert HEENT: Normocephalic and atraumatic CVS: +S1S2 Lungs: Air entry appears to be fair bilaterally without any evidence of wheezing, crackles or rhonchi Abdomen: His abdomen again was soft without any appreciated tenderness or distention on palpation Extremities: No edema was appreciated of his lower extremities Assessment and plan: Delirium with aggressive behavior on dementia - likely 2/2 progression of samantha ntia, possibly exacerbated by urinary tract infection - Morning patient appeared to be very cooperative and pleasant - c/w Seroquel (at adjusted dose), Mirtazapine, Memantine - c/w bedside sitter; that patient has had baseline from the [facility] - c/w UTI treatment (see below) - Psychiatry on consultation; appreciate their input - Discussed with Dr. Leslie Ellis at [facility] to determine baseline level of function - this appears to be patient's baseline level of functioning with aggressive behaviors UTI - Patient has been afebrile - No leukocytosis - Urine culture 08/01: Pseudomonas aeruginosa, Streptococcus aureus, Staph aureus - Urine cultures may represent colonization - Will DC Levofloxacin tomorrow (after 5 day course); s/p Cefdinir HTN - Blood pressure remains well controlled - Currently not on any blood pressure medications Chronic edema - LE do not reveal any significant edema currently - Furosemide still on hold for now; will continue to hold Hx of orthostatic hypotension? - c/w Fludrocortisone s/p Hypernatremia DVT prophylaxis - c/w Lovenox Disposition: - Discussed with attending at [facility] to understand baseline - she is currently at baseline - Patient has been medically cleared and will be transitioned to ALC status - [facility] Home administration (Hawa Isbell) is evaluating patient in the room for appropriateness of return; I await their input VS,Brittnee, I+O VSBrittnee I+O Laboratory Tests 08/06/20 08:04 Vital Signs Date Time Temp Pulse Resp B/P (MAP) Pulse Ox O2 Delivery O2 Flow Rate FiO2 08/05/20 14:00 99.1 104 19 142/80 (100) 99 Room Air I&O- Last 24 Hours up to 6 AM 08/06/20 06:00 Intake Total 180 ml Output Total 1150 ml Balance -970 ml PRINCESS PANIAGUA MD August 06, 2020 12:09
[2020-08-06] MEDS: ACETAMINOPHEN TAB 650MG DOSE (2X325MG) PO PRN (20:32)
[2020-08-06] MEDS: MIRTAZAPINE 15 MG TAB PO SCH (20:33)
[2020-08-07] MEDS: LevoFLOXacin 500 MG TABLET PO SCH (05:26)
[2020-08-07 06:47] LABS: BASO % 0.4 % (0.0-1.0); EOS # 0.2 10^3/uL (0.0-0.5); EOS % 2.2 % (0.0-3.0); HEMATOCRIT 39.8 % (42.0-52.0); HEMOGLOBIN 13.4 g/dl (13.5-17.5); LYMPH % 13.2 % (24.0-44.0); MEAN CORPUSCULAR HEMOGLOBIN 32.1 pg (27.0-33.0); MEAN CORPUSCULAR HGB CONC 33.7 g/dl (32.0-36.5); MEAN CORPUSCULAR VOLUME 95.2 fl (80.0-96.0); MONO # 0.6 10^3/uL (0.0-0.8); MONO % 7.8 % (2.0-8.0); NEUTROPHILS # 5.7 10^3/uL (1.5-8.5); NEUTROPHILS % 76.1 % (36.0-66.0); PLATELET COUNT, AUTOMATED 204 10^3/uL (150-450); RED BLOOD COUNT 4.18 10^6/uL (4.30-6.10); WHITE BLOOD COUNT 7.4 10^3/uL (4.0-10.0)
[2020-08-07 07:14] LABS: BLOOD UREA NITROGEN 16 MG/DL (7-18); CALCIUM LEVEL 9.5 MG/DL (8.8-10.2); CARBON DIOXIDE LEVEL 27 MEQ/L (21-32); CHLORIDE LEVEL 108 MEQ/L (98-107); CREATININE FOR GFR 0.82 MG/DL (0.70-1.30); GLOMERULAR FILTRATION RATE > 60.0 (>42); GLUCOSE, FASTING 100 MG/DL (70-100); MAGNESIUM LEVEL 2.3 MG/DL (1.8-2.4); POTASSIUM SERUM 4.3 MEQ/L (3.5-5.1); SODIUM LEVEL 142 MEQ/L (136-145)
[2020-08-07] MEDS: DOCUSATE SODIUM 100MG CAPSULE PO SCH (09:00)
[2020-08-07] MEDS: ENOXAPARIN 40MG/0.4ML SYRINGE (J1650 PER 10MG) SC SCH (09:00)
[2020-08-07] MEDS: QUEtiapine FUMARATE 50MG TAB PO SCH (09:06)
[2020-08-07] MEDS: POTASSIUM CHLORIDE 10 MEQ SR TABLET PO SCH (09:06)
[2020-08-07] MEDS: QUEtiapine FUMARATE 200 MG TAB PO SCH (09:06)
[2020-08-07] MEDS: MEMANTINE 5MG TABLET (NAMENDA) PO SCH (09:06)
--- NOTE | 2020-08-07 09:21 | DS.PDOC ---
Discharge Summary General Date of Admission Aug 01, 2020 at 20:41 Date of Discharge 08/07/2020 - Patient's hospital discharge was delayed by single day for [facility] administration issues; unclear what these issues were Discharge Summary PROCEDURES PERFORMED DURING STAY: [None]. ADMITTING DIAGNOSES / DISCHARGE DIAGNOSES: Delirium with aggressive behavior on dementia - likely 2/2 progression of dementia, possibly exacerbated by urinary tract infection UTI HTN Chronic edema Hx of orthostatic hypotension? s/p Hypernatremia DVT prophylaxis COMPLICATIONS/CHIEF COMPLAINT: Confusion HISTORY OF PRESENT ILLNESS: Patient is a 74-year-old male with a PMHx of Dementia (with behavioral problems), HTN, GERD who presented to the ER from [facility]. Increased aggressive behavior and agitation. Patient was suspected of having urinary tract infection and was admitted to hospital service for further evaluation and treatment. HOSPITAL COURSE: Delirium with aggressive behavior on dementia - likely 2/2 progression of dementia, possibly exacerbated by urinary tract infection - Again this morning patient appears to be comfortable, noncombative and cooperative - c/w Seroquel (at adjusted dose), Mirtazapine, Memantine - c/w bedside sitter; again, which has been his baseline level of requirement - s/p UTI treatment (see below) - Psychiatry on consultation; appreciate their input - Case was discussed with Dr. Leslie Ellis at [facility] on 08/05 to determine baseline level of function; this appears to be patient's baseline level of functioning with aggressive behaviors outbursts - EKG was checked to evaluate QTC, which is within the normal range UTI - Patient has been afebrile - No leukocytosis - Urine culture 08/01: Pseudomonas aeruginosa, Streptococcus aureus, Staph aureus - Urine cultures may represent colonization in the setting of a chronic Clay catheter - s/p Levofloxacin tomorrow 5 day course); s/p Cefdinir HTN - Blood pressure remains well controlled - Currently not on any blood pressure medications Chronic edema - LE do not reveal any significant edema currently - Furosemide still on hold for now; will continue to hold Hx of orthostatic hypotension? - c/w Fludrocortisone s/p Hypernatremia DVT prophylaxis - c/w Lovenox DISCHARGE MEDICATIONS: Please see below. ALLERGIES: Please see below. PHYSICAL EXAMINATION ON DISCHARGE: Vitals (See below) General: Patient is laying in bed, comfortable, appears not to be in any distress, is cooperative, is awake and alert HEENT: Patient is normocephalic and atraumatic CVS: +S1S2 Lungs: Air appears to be fair air entry bilaterally without any evidence of wheezing, crackles or rhonchi Abdomen: Again, his abdomen was soft, nondistended and nontender Extremities: Lower extremities do not reveal any significant edema LABORATORY DATA: Please see below. ACTIVITY: [As tolerated]. DISCHARGE PLAN: Follow-up with primary care provider in psychiatry within the next 7 days Remain compliant with treatment plan and medications Return to the ER if you experience any problems DISPOSITION: [facility] DISCHARGE CONDITION: [Stable]. TIME SPENT ON DISCHARGE: 35 minutes. Vital Signs/I&Os Vital Signs Date Time Temp Pulse Resp B/P (MAP) Pulse Ox O2 Delivery O2 Flow Rate FiO2 08/07/20 06:00 106 18 97 Room Air 08/05/20 14:00 99.1 142/80 (100) I&O- Last 24 Hours up to 6 AM 08/07/20 06:00 Intake Total 270 ml Output Total 550 ml Balance -280 ml Laboratory Data Labs 24H Laboratory Tests 2 08/07/20 06:28: Immature Granulocyte % (Auto) 0.3, Neutrophils (%) (Auto) 76.1H, Lymphocytes (%) (Auto) 13.2L, Monocytes (%) (Auto) 7.8, Eosinophils (%) (Auto) 2.2, Basophils (%) (Auto) 0.4, Neutrophils # (Auto) 5.7, Lymphocytes # (Auto) 1.0L, Monocytes # (Auto) 0.6, Eosinophils # (Auto) 0.2, Basophils # (Auto) 0.0, Nucleated Red Blood Cells % (auto) 0.0, Anion Gap 7L, Glomerular Filtration Rate > 60.0, Calcium Level 9.5, Magnesium Level 2.3 CBC/BMP Laboratory Tests 08/07/20 06:28 Microbiology Microbiology 08/01/20 Urine Culture - Final, Complete Pseudomonas Aeruginosa Enterococcus Faecalis Staphylococcus Aureus Discharge Medications Scheduled Famotidine (Famotidine) 40 Mg Tablet, 40 MG PO DAILY, (Reported) Fludrocortisone Acetate (Fludrocortisone Acetate) 0.1 Mg Tablet, 0.1 MG PO DAILY, (Reported) Gabapentin (Gabapentin) 250 Mg/5 Ml Solution, 250 MG PO BID, (Reported) Lorazepam (Ativan) 0.5 Mg Tablet, 0.25 MG PO TID, (Reported) Use sublingually if unable to swallow Memantine HCl (Namenda) 10 Mg Tablet, 10 MG PO BID, (Reported) Mirtazapine (Remeron) 15 Mg Tablet, 15 MG PO QPM, (Reported) Nut.tx.impaired Digestive Fxn (Ensure Clear Therapeutic) 0.035 Gram-1 Kcal/Ml Liquid, 237 ML PO BID, (Reported) Potassium Chloride (Potassium Chloride) 20 Meq Tablet.er, 40 MEQ PO DAILY, (Re ported) Quetiapine Fumarate (Quetiapine Fumarate) 100 Mg Tablet, 250 MG PO BID Scheduled PRN Acetaminophen (Mapap) 325 Mg Tablet, 650 MG PO Q4H PRN for PAIN OR FEVER, (Reported) Acetaminophen (Acetaminophen) 650 Mg Supp.rect, 650 MG PA Q4H PRN for PAIN / FEVER, (Reported) Bisacodyl (Dulcolax) 10 Mg Supp.rect, 10 MG PA DAILY PRN for CONSTIPATION, (Reported) Milk Of Magnesia (Milk of Magnesia) 2,400 Mg/10 Ml Oral.susp, 10 ML PO DAILY PRN for CONSTIPATION, (Reported) Sodium Chloride ([place] Saline Nasal Gel) 14.1 Gm Gel..gram., 1 APLCT TOP DAILY PRN for NASAL DRYNESS, (Reported) Sodium Phosphate,[place]-Dibasic (Enema Ready To Use) 133 Ml Enema, 1 JACLYN PA DAILY PRN for CONSTIPATION, (Reported) Allergies Coded Allergies: No Known Drug Allergies (Verified Allergy, Unknown, 12/03/19) PRINCESS PANIAGUA MD August 07, 2020 09:21
--- NOTE | 2020-08-07 16:53 | ECGEPIP ---
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 Repolarization abnormalities have normalized from 01/08/20 Electronically Signed on 08-07-2020 16:53:52 EDT by Jeff Saucedo
== END 2020-08-07 10:20 | DRG 884 ==
LOC: M ED 18:02 → EDBD 18:02 → M ED INP 20:41 → ENRESERV 21:57 → M MS5PR 22:26
PROVIDERS: ADMIT Family Medicine; ATTEND Internal Medicine
DX: F03.91 Unspecified dementia, unspecified severity, with behavioral disturbance (principal); N39.0 Urinary tract infection, site not specified; E87.0 Hyperosmolality and hypernatremia; I10 Essential (primary) hypertension; K21.9 Gastro-esophageal reflux disease without esophagitis; Z79.899 Other long term (current) drug therapy

== ENCOUNTER → 2020-08-08 | Outpatient (REF) | payer MEDICARE ==
[~2020-08-08] MED LIST changes: +ACET650S3 PR; +ATIV1TAB10 PO; +DULC10SU2 PR; +ENEMENE6 PR; +FLUD0.1T PO; +FURO20TA2 PO; +GABA250S7 PO; +HALD5INJ2 IM; +MOM30SS PO; +POTA1TAB14 PO; +QUET100T2 PO; +SODIGEL TOP; +[UNRECOGNIZED DRUG - CODE] PO
--- NOTE | 2020-08-08 22:13 | ECGEPIP ---
[facility] Test Date: 2020-08-08 Pat Name: YONI POSEY Department: Room: - Gender: Male Biometry Teacher: MANN : 1945 Requested By: Deric Ellis Order Number: [id number] Reading MD: Yoni Nassar Measurements Intervals [place] Rate: 78 P: 85 ME: 182 QRS: 9 QRSD: 92 T: 59 QT: 376 QTc: 428 Interpretive Statements Normal sinus rhythm Poor R wave progression, low precordial voltages. Nonspecific T wave abnormality Electronically Signed on 08-08-2020 22:13:25 EDT by Yoni Nassar
== END ==
LOC: SKLAB7 08:33
PROVIDERS: ATTEND Internal Medicine
DX: R94.31 Abnormal electrocardiogram [ECG] [EKG] (principal); Z79.899 Other long term (current) drug therapy

== ENCOUNTER → 2020-08-14 | Outpatient (REF) | payer MEDICARE ==
[~2020-08-14] MED LIST changes: +GABA-283 PO; -GABA-845 PO
[2020-08-14 11:55] LABS: BLOOD UREA NITROGEN 13 MG/DL (7-18); CALCIUM LEVEL 9.6 MG/DL (8.8-10.2); CARBON DIOXIDE LEVEL 27 MEQ/L (21-32); CHLORIDE LEVEL 110 MEQ/L (98-107); CREATININE FOR GFR 0.88 MG/DL (0.70-1.30); GLOMERULAR FILTRATION RATE > 60.0 (>42); GLUCOSE, FASTING 90 MG/DL (70-100); POTASSIUM SERUM 3.9 MEQ/L (3.5-5.1); SODIUM LEVEL 143 MEQ/L (136-145)
== END ==
LOC: SKLAB7 10:46
PROVIDERS: ATTEND Internal Medicine
DX: I10 Essential (primary) hypertension (principal)

== ENCOUNTER → 2020-08-21 | Outpatient (REF) | payer MEDICARE ==
[2020-08-21 10:08] LABS: BLOOD UREA NITROGEN 12 MG/DL (7-18); CARBON DIOXIDE LEVEL 24 MEQ/L (21-32); CHLORIDE LEVEL 113 MEQ/L (98-107); CREATININE FOR GFR 0.88 MG/DL (0.70-1.30); GLOMERULAR FILTRATION RATE > 60.0 (>42); GLUCOSE, FASTING 126 MG/DL (70-100); POTASSIUM SERUM 3.7 MEQ/L (3.5-5.1); SODIUM LEVEL 143 MEQ/L (136-145)
== END ==
LOC: SKLAB7 07:00
PROVIDERS: ATTEND Internal Medicine
DX: I50.9 Heart failure, unspecified (principal)

== ENCOUNTER → 2020-09-08 | Outpatient (REF) | payer MEDICARE ==
[2020-09-08 15:04] LABS: BLOOD UREA NITROGEN 18 MG/DL (7-18); CALCIUM LEVEL 9.1 MG/DL (8.8-10.2); CARBON DIOXIDE LEVEL 25 MEQ/L (21-32); CHLORIDE LEVEL 112 MEQ/L (98-107); CREATININE FOR GFR 0.84 MG/DL (0.70-1.30); GLOMERULAR FILTRATION RATE > 60.0 (>42); GLUCOSE, FASTING 100 MG/DL (70-100); POTASSIUM SERUM 3.9 MEQ/L (3.5-5.1); SODIUM LEVEL 145 MEQ/L (136-145)
--- NOTE | 2020-09-08 21:05 | ECGEPIP ---
[facility] Test Date: 2020-09-08 Pat Name: RADHA POSEY Department: Room: - Gender: Male Home Care Assistant: baldo : 1945 Requested By: Deric Ellis Order Number: [id number] Reading MD: Mariana Alfred Measurements Intervals [place] Rate: 75 P: -15 UT: 180 QRS: -5 QRSD: 86 T: 38 QT: 392 QTc: 437 Interpretive Statements Sinus rhythm COMPARED TO 08/08/20 normal R wave progression Electronically Signed on 09-08-2020 21:04:41 EDT by Mariana Alfred
== END ==
LOC: SKLAB7 13:34
PROVIDERS: ATTEND Internal Medicine
DX: Z79.899 Other long term (current) drug therapy (principal); F91.8 Other conduct disorders

== ENCOUNTER → 2020-10-01 | Outpatient (REF) | payer MEDICARE ==
--- NOTE | 2020-10-01 14:07 | REP ---
INDICATION: PAIN. COMPARISON: None. TECHNIQUE: A single AP view of the pelvis was performed. FINDINGS: The hip joint spaces are symmetric and relatively well maintained for the patient's age. Mild hip joint space narrowing is present.. There is no acute fracture or destructive osseous lesion. IMPRESSION: Chronic changes <Electronically signed by Ketan Ferris > 10/01/20 [id number]
--- NOTE | 2020-10-01 14:11 | REP ---
INDICATION: PAIN. COMPARISON: Comparison radiograph September 24, 2018.. TECHNIQUE: AP and frogleg views of the left hip were obtained portably. FINDINGS: There is diffuse osteopenia. Vascular calcification is noted. The left hemipelvis appears intact. There is chondro calcinosis superiorly and mild superior acetabular spurring is seen. There is mild inferior femoral head spurring consistent with osteoarthritis. Periarticular soft tissues are unremarkable. No fracture is seen. IMPRESSION: Osteoarthritic changes and chondrocalcinosis. Vascular calcification and diffuse osteopenia. No acute bony abnormality. <Electronically signed by Fredy Davis > 10/01/20 [id number]
== END ==
LOC: SKLAB7 11:12
PROVIDERS: ATTEND Internal Medicine
DX: M11.252 Other chondrocalcinosis, left hip (principal); M85.852 Other specified disorders of bone density and structure, left thigh; I70.8 Atherosclerosis of other arteries

== ENCOUNTER → 2020-11-13 | Outpatient (REF) | payer MEDICARE ==
[~2020-11-13] MED LIST changes: +QUET1TAB17 PO; -QUET25TA3 PO; -QUET50TA3 PO; +QUET50TA4 PO
[2020-11-13 11:00] LABS: HEMOGLOBIN A1c 4.6 %
[2020-11-13 11:36] LABS: BILIRUBIN,DIRECT 0.3 MG/DL (0.0-0.2); BILIRUBIN,TOTAL 0.6 MG/DL (0.2-1.0); TOTAL PROTEIN 6.4 GM/DL (6.4-8.2)
== END ==
LOC: SKLAB7 14:24
PROVIDERS: ATTEND Internal Medicine
DX: Z79.01 Long term (current) use of anticoagulants (principal); Z79.899 Other long term (current) drug therapy

== ENCOUNTER → 2020-12-04 | Outpatient (REF) | payer MEDICARE ==
--- NOTE | 2020-12-05 16:29 | ECGEPIP ---
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
== END ==
LOC: SKLAB7 12:03
PROVIDERS: ATTEND Internal Medicine
DX: T50.995A Adverse effect of other drugs, medicaments and biological substances, initial encounter (principal)

== ENCOUNTER → 2020-12-18 | Outpatient (REF) | payer MEDICARE ==
[2020-12-18 09:54] LABS: BLOOD UREA NITROGEN 8 MG/DL (7-18); CALCIUM LEVEL 9.1 MG/DL (8.8-10.2); CARBON DIOXIDE LEVEL 27 MEQ/L (21-32); CHLORIDE LEVEL 108 MEQ/L (98-107); CREATININE FOR GFR 0.65 MG/DL (0.70-1.30); GLOMERULAR FILTRATION RATE > 60.0 (>42); GLUCOSE, FASTING 122 MG/DL (70-100); POTASSIUM SERUM 3.5 MEQ/L (3.5-5.1); SODIUM LEVEL 143 MEQ/L (136-145)
== END ==
LOC: SKLAB7 07:00
PROVIDERS: ATTEND Internal Medicine
DX: E27.9 Disorder of adrenal gland, unspecified (principal)

== ENCOUNTER → 2020-12-23 | Outpatient (REF) | payer MEDICARE ==
[2020-12-23 14:50] LABS: APPEARANCE, URINE CLOUDY (CLEAR); BACTERIA, URINE AUTO 2+ (NEGATIVE); BILIRUBIN, URINE AUTO NEGATIVE (NEGATIVE); BLOOD, URINE BLOOD 3+ (NEGATIVE); COLOR, URINE AMBER (YELLOW); GLUCOSE, URINE (UA) AUTO NEGATIVE (NEGATIVE); KETONE, URINE AUTO NEGATIVE (NEGATIVE); LEUKOCYTE ESTERASE, URINE AUTO 3+ (NEGATIVE); MUCUS, URINE SMALL (NEGATIVE); NITRITE, URINE AUTO NEGATIVE (NEGATIVE); PROTEIN, URINE AUTO 2+ mg/dL (NEGATIVE); RBC, URINE AUTO TNTC /HPF (0-3); SPECIFIC GRAVITY URINE AUTO 1.012 (1.002-1.035); SQUAMOUS EPITHELIAL CELL UR AU 1 /HPF (0-6); WBC, URINE AUTO TNTC /HPF (0-3)
== END ==
LOC: SKLAB7 14:12
PROVIDERS: ATTEND Internal Medicine
DX: R50.9 Fever, unspecified (principal)

== ENCOUNTER → 2021-01-17 | Outpatient (REF) | payer MEDICARE | LOC: SKLAB2 07:00 | PROVIDERS: ATTEND Internal Medicine | DX: Z20.822 Contact with and (suspected) exposure to COVID-19 (principal) ==

== ENCOUNTER → 2021-01-18 | Outpatient (REF) | payer MEDICARE ==
[2021-01-18 21:40] LABS: HEMATOCRIT 38.6 % (42.0-52.0); HEMOGLOBIN 12.6 g/dl (13.5-17.5); MEAN CORPUSCULAR HEMOGLOBIN 30.1 pg (27.0-33.0); MEAN CORPUSCULAR HGB CONC 32.6 g/dl (32.0-36.5); MEAN CORPUSCULAR VOLUME 92.3 fl (80.0-96.0); PLATELET COUNT, AUTOMATED 191 10^3/uL (150-450); RED BLOOD COUNT 4.18 10^6/uL (4.30-6.10); WHITE BLOOD COUNT 6.2 10^3/uL (4.0-10.0)
[2021-01-18 22:04] LABS: ALBUMIN 2.8 GM/DL (3.2-5.2); ALT/SGPT 11 U/L (12-78); BILIRUBIN,TOTAL 0.8 MG/DL (0.2-1.0); BLOOD UREA NITROGEN 11 MG/DL (7-18); C REACTIVE PROTEIN QUANTITATIV 2.58 MG/DL (0.00-0.30); CALCIUM LEVEL 9.1 MG/DL (8.8-10.2); CARBON DIOXIDE LEVEL 29 MEQ/L (21-32); CHLORIDE LEVEL 106 MEQ/L (98-107); CREATININE FOR GFR 0.76 MG/DL (0.70-1.30); GLOMERULAR FILTRATION RATE > 60.0 (>42); GLUCOSE, FASTING 90 MG/DL (70-100); POTASSIUM SERUM 3.7 MEQ/L (3.5-5.1); SODIUM LEVEL 140 MEQ/L (136-145); TOTAL PROTEIN 7.3 GM/DL (6.4-8.2)
== END ==
LOC: SKLAB2 07:00
PROVIDERS: ATTEND Internal Medicine
DX: U07.1 COVID-19 (principal); Z79.899 Other long term (current) drug therapy

== ENCOUNTER → 2021-01-19 | Outpatient (REF) | payer MEDICARE ==
[~2021-01-19] MED LIST changes: +ACETAMINOPHEN TAB 650MG DOSE (2X325MG) PO ONE; +ALBUTEROL 90 MCG/ACT 8GM HFA INHALER INH PRN; +ALBUTEROL SULFATE 2.5 MG/0.5 ML INH NEB SOLN INH PRN; +BAMLANIVIMAB 700 MG, ETESEVIMAB 1,400 MG in NS 250 ML IV ONE; +EPINEPHrine INJ 1 MG/ML 1ML AMP IM PRN; +NS 1,000 ML IV SCH; +diphenhydrAMINE 50MG/ML VIAL (J1200) IV ONE; +diphenhydrAMINE 50MG/ML VIAL (J1200) IV PRN; +methylPREDNISolone 125MG 2ML VIAL IV ONE; +methylPREDNISolone 125MG 2ML VIAL IV PRN
== END ==
LOC: SKLAB2 07:55
PROVIDERS: ATTEND Internal Medicine
DX: U07.1 COVID-19 (principal)

== ENCOUNTER → 2021-01-20 | Outpatient (REF) | payer MEDICARE ==
[~2021-01-20] MED LIST changes: -ACETAMINOPHEN TAB 650MG DOSE (2X325MG) PO ONE; -ALBUTEROL 90 MCG/ACT 8GM HFA INHALER INH PRN; -ALBUTEROL SULFATE 2.5 MG/0.5 ML INH NEB SOLN INH PRN; -BAMLANIVIMAB 700 MG, ETESEVIMAB 1,400 MG in NS 250 ML IV ONE; -EPINEPHrine INJ 1 MG/ML 1ML AMP IM PRN; -NS 1,000 ML IV SCH; -diphenhydrAMINE 50MG/ML VIAL (J1200) IV ONE; -diphenhydrAMINE 50MG/ML VIAL (J1200) IV PRN; -methylPREDNISolone 125MG 2ML VIAL IV ONE; -methylPREDNISolone 125MG 2ML VIAL IV PRN
[2021-01-20 10:00] LABS: HEMATOCRIT 35.6 % (42.0-52.0); HEMOGLOBIN 11.8 g/dl (13.5-17.5); MEAN CORPUSCULAR HEMOGLOBIN 30.2 pg (27.0-33.0); MEAN CORPUSCULAR HGB CONC 33.1 g/dl (32.0-36.5); PLATELET COUNT, AUTOMATED 196 10^3/uL (150-450); RED BLOOD COUNT 3.91 10^6/uL (4.30-6.10); WHITE BLOOD COUNT 2.6 10^3/uL (4.0-10.0)
[2021-01-20 10:17] LABS: BLOOD UREA NITROGEN 17 MG/DL (7-18); CARBON DIOXIDE LEVEL 25 MEQ/L (21-32); CHLORIDE LEVEL 108 MEQ/L (98-107); CREATININE FOR GFR 0.64 MG/DL (0.70-1.30); GLOMERULAR FILTRATION RATE > 60.0 (>42); GLUCOSE, FASTING 131 MG/DL (70-100); POTASSIUM SERUM 4.6 MEQ/L (3.5-5.1); SODIUM LEVEL 141 MEQ/L (136-145)
== END ==
LOC: SKLAB2 07:00
PROVIDERS: ATTEND Internal Medicine
DX: U07.1 COVID-19 (principal); Z79.899 Other long term (current) drug therapy

== ENCOUNTER → 2021-01-22 | Outpatient (REF) | payer MEDICARE ==
[2021-01-22 11:56] LABS: HEMATOCRIT 38.9 % (42.0-52.0); HEMOGLOBIN 12.8 g/dl (13.5-17.5); MEAN CORPUSCULAR HGB CONC 32.9 g/dl (32.0-36.5); MEAN CORPUSCULAR VOLUME 91.3 fl (80.0-96.0); PLATELET COUNT, AUTOMATED 216 10^3/uL (150-450); RED BLOOD COUNT 4.26 10^6/uL (4.30-6.10); WHITE BLOOD COUNT 4.3 10^3/uL (4.0-10.0)
[2021-01-22 12:32] LABS: ALT/SGPT 14 U/L (12-78); BILIRUBIN,TOTAL 0.5 MG/DL (0.2-1.0); BLOOD UREA NITROGEN 21 MG/DL (7-18); CALCIUM LEVEL 9.4 MG/DL (8.8-10.2); CARBON DIOXIDE LEVEL 28 MEQ/L (21-32); CHLORIDE LEVEL 109 MEQ/L (98-107); CREATININE FOR GFR 0.68 MG/DL (0.70-1.30); GLOMERULAR FILTRATION RATE > 60.0 (>42); GLUCOSE, FASTING 73 MG/DL (70-100); POTASSIUM SERUM 4.2 MEQ/L (3.5-5.1); SODIUM LEVEL 143 MEQ/L (136-145); TOTAL PROTEIN 6.9 GM/DL (6.4-8.2)
== END ==
LOC: SKLAB2 07:00
PROVIDERS: ATTEND Internal Medicine
DX: U07.1 COVID-19 (principal); Z79.899 Other long term (current) drug therapy

== ENCOUNTER → 2021-01-26 | Outpatient (REF) | payer MEDICARE | LOC: SKLAB2 10:06 | PROVIDERS: ATTEND Internal Medicine | DX: U07.1 COVID-19 (principal); Z53.8 Procedure and treatment not carried out for other reasons ==

== ENCOUNTER → 2021-01-28 | Outpatient (REF) | payer MEDICARE | LOC: SKLAB4 07:00 | PROVIDERS: ATTEND Internal Medicine | DX: Z53.9 Procedure and treatment not carried out, unspecified reason (principal) ==

== ENCOUNTER → 2021-01-30 | Outpatient (REF) | payer MEDICARE ==
[2021-01-30 11:13] LABS: HEMATOCRIT 39.2 % (42.0-52.0); HEMOGLOBIN 12.9 g/dl (13.5-17.5); MEAN CORPUSCULAR HEMOGLOBIN 30.5 pg (27.0-33.0); MEAN CORPUSCULAR HGB CONC 32.9 g/dl (32.0-36.5); MEAN CORPUSCULAR VOLUME 92.7 fl (80.0-96.0); PLATELET COUNT, AUTOMATED 225 10^3/uL (150-450); RED BLOOD COUNT 4.23 10^6/uL (4.30-6.10); WHITE BLOOD COUNT 7.7 10^3/uL (4.0-10.0)
[2021-01-30 12:14] LABS: ALT/SGPT 13 U/L (12-78); BILIRUBIN,TOTAL 0.5 MG/DL (0.2-1.0); BLOOD UREA NITROGEN 22 MG/DL (7-18); CALCIUM LEVEL 9.3 MG/DL (8.8-10.2); CARBON DIOXIDE LEVEL 26 MEQ/L (21-32); CHLORIDE LEVEL 109 MEQ/L (98-107); CREATININE FOR GFR 0.77 MG/DL (0.70-1.30); GLOMERULAR FILTRATION RATE > 60.0 (>42); GLUCOSE, FASTING 78 MG/DL (70-100); POTASSIUM SERUM 3.6 MEQ/L (3.5-5.1); SODIUM LEVEL 143 MEQ/L (136-145); TOTAL PROTEIN 6.5 GM/DL (6.4-8.2)
== END ==
LOC: SKLAB7 07:00
PROVIDERS: ATTEND Internal Medicine
DX: U07.1 COVID-19 (principal); Z79.899 Other long term (current) drug therapy

== ENCOUNTER → 2021-02-19 | Outpatient (REF) | payer MEDICARE | LOC: SKLAB7 07:00 | PROVIDERS: ATTEND Internal Medicine | DX: I10 Essential (primary) hypertension (principal); F03.90 Unspecified dementia, unspecified severity, without behavioral disturbance, psychotic disturbance, mood disturbance, and anxiety ==

== ENCOUNTER → 2021-03-06 | Outpatient (REF) | payer MEDICARE ==
--- NOTE | 2021-03-06 19:21 | ECGEPIP ---
[facility] Test Date: 2021-03-06 Pat Name: YONI POSEY Department: Room: - Gender: Male Resource Management Planner: GAUTAM : 1945 Requested By: Deric Ellis Order Number: [id number] Reading MD: Yoin Lopez Measurements Intervals [place] Rate: 73 P: 52 NC: 178 QRS: 48 QRSD: 84 T: 67 QT: 392 QTc: 431 Interpretive Statements Normal sinus rhythm Low QRS complex voltage in the limb leads Delayed anterior R wave progression Baseline artifact St/T wave changes normalized from tracing done 12-04-20 Electronically Signed on 03-06-2021 19:21:38 EST by Yoni Lopez
== END ==
LOC: SKLAB7 13:52
PROVIDERS: ATTEND Internal Medicine
DX: Z79.899 Other long term (current) drug therapy (principal)

== ENCOUNTER → 2021-06-04 | Outpatient (REF) | payer MEDICARE | LOC: SKLAB7 10:45 | PROVIDERS: ATTEND Internal Medicine | DX: Z79.899 Other long term (current) drug therapy (principal) ==

== ENCOUNTER → 2021-06-05 | Outpatient (REF) | payer MEDICARE ==
[2021-06-05 15:03] LABS: APPEARANCE, URINE CLOUDY (CLEAR); BACTERIA, URINE AUTO 3+ (NEGATIVE); BILIRUBIN, URINE AUTO NEGATIVE (NEGATIVE); BLOOD, URINE BLOOD NEGATIVE (NEGATIVE); COLOR, URINE AMBER (YELLOW); GLUCOSE, URINE (UA) AUTO NEGATIVE (NEGATIVE); KETONE, URINE AUTO NEGATIVE (NEGATIVE); LEUKOCYTE ESTERASE, URINE AUTO 3+ (NEGATIVE); NITRITE, URINE AUTO POSITIVE (NEGATIVE); PROTEIN, URINE AUTO 1+ mg/dL (NEGATIVE); RBC, URINE AUTO 0 /HPF (0-3); SPECIFIC GRAVITY URINE AUTO 1.012 (1.002-1.035); SQUAMOUS EPITHELIAL CELL UR AU 0 /HPF (0-6); WBC, URINE AUTO TNTC /HPF (0-3)
== END ==
LOC: SKLAB7 13:29
PROVIDERS: ATTEND Internal Medicine
DX: R41.82 Altered mental status, unspecified (principal)

== ENCOUNTER 2021-06-06 10:27 | Emergency (ER) | payer MEDICARE ==
[~2021-06-06] VITALS: Ht 188 cm; Wt 70.0 kg
[2021-06-06 11:36] LABS: BASO % 0.4 % (0.0-1.0); EOS # 0.1 10^3/uL (0.0-0.5); EOS % 1.6 % (0.0-3.0); HEMATOCRIT 35.4 % (42.0-52.0); HEMOGLOBIN 12.4 g/dl (13.5-17.5); LYMPH # 1.3 10^3/uL (1.5-5.0); LYMPH % 16.7 % (24.0-44.0); MEAN CORPUSCULAR HEMOGLOBIN 30.7 pg (27.0-33.0); MEAN CORPUSCULAR VOLUME 87.6 fl (80.0-96.0); MONO # 0.7 10^3/uL (0.0-0.8); MONO % 9.1 % (2.0-8.0); NEUTROPHILS # 5.8 10^3/uL (1.5-8.5); NEUTROPHILS % 71.8 % (36.0-66.0); PLATELET COUNT, AUTOMATED 212 10^3/uL (150-450); RED BLOOD COUNT 4.04 10^6/uL (4.30-6.10)
[2021-06-06 11:50] LABS: INR 1.04
[2021-06-06 11:56] LABS: BLOOD UREA NITROGEN 14 MG/DL (7-18); CALCIUM LEVEL 9.2 MG/DL (8.8-10.2); CARBON DIOXIDE LEVEL 24 MEQ/L (21-32); CHLORIDE LEVEL 107 MEQ/L (98-107); CREATININE FOR GFR 0.92 MG/DL (0.70-1.30); GLOMERULAR FILTRATION RATE > 60.0 (>42); GLUCOSE, FASTING 109 MG/DL (70-100); POTASSIUM SERUM 3.9 MEQ/L (3.5-5.1); SODIUM LEVEL 140 MEQ/L (136-145)
[2021-06-06] MEDS ORDERED: DERMABOND TOPICAL SKIN ADHESIVE TOP ONE (12:00)
[2021-06-06 12:42] LABS: RSV AMPLIFICATION NEGATIVE (NEGATIVE)
[2021-06-06 13:00] VITALS: BP 142/76
== END 2021-06-06 13:19 | disposition short-term general hospital (02) ==
LOC: EDBD 10:27 → M ED 10:27
DX: S72.041A Displaced fracture of base of neck of right femur, initial encounter for closed fracture (principal); N39.0 Urinary tract infection, site not specified; I67.82 Cerebral ischemia; I10 Essential (primary) hypertension; E11.9 Type 2 diabetes mellitus without complications; M17.11 Unilateral primary osteoarthritis, right knee; Z79.4 Long term (current) use of insulin; X58.XXXA Exposure to other specified factors, initial encounter; Y92.129 Unspecified place in nursing home as the place of occurrence of the external cause; Y93.9 Activity, unspecified; Y99.9 Unspecified external cause status; Z79.899 Other long term (current) drug therapy; Z97.8 Presence of other specified devices

== ENCOUNTER → 2021-06-06 | Outpatient (CLI) | payer MEDICARE | LOC: M RAD 01:53 | PROVIDERS: ATTEND Internal Medicine | DX: S72.91XA Unspecified fracture of right femur, initial encounter for closed fracture (principal); M17.11 Unilateral primary osteoarthritis, right knee; Z97.8 Presence of other specified devices; X58.XXXA Exposure to other specified factors, initial encounter; Y92.9 Unspecified place or not applicable ==

== ENCOUNTER → 2021-06-11 | Outpatient (REF) | payer MEDICARE ==
[2021-06-11 13:18] LABS: HEMATOCRIT 30.1 % (42.0-52.0); HEMOGLOBIN 10.3 g/dl (13.5-17.5); MEAN CORPUSCULAR HEMOGLOBIN 30.4 pg (27.0-33.0); MEAN CORPUSCULAR HGB CONC 34.2 g/dl (32.0-36.5); MEAN CORPUSCULAR VOLUME 88.8 fl (80.0-96.0); PLATELET COUNT, AUTOMATED 288 10^3/uL (150-450); RED BLOOD COUNT 3.39 10^6/uL (4.30-6.10)
[2021-06-11 13:47] LABS: ALBUMIN 2.5 GM/DL (3.2-5.2); ALT/SGPT 23 U/L (12-78); BLOOD UREA NITROGEN 17 MG/DL (7-18); CALCIUM LEVEL 9.2 MG/DL (8.8-10.2); CARBON DIOXIDE LEVEL 30 MEQ/L (21-32); CHLORIDE LEVEL 110 MEQ/L (98-107); CREATININE FOR GFR 0.87 MG/DL (0.70-1.30); GLOMERULAR FILTRATION RATE > 60.0 (>42); GLUCOSE, FASTING 155 MG/DL (70-100); POTASSIUM SERUM 3.7 MEQ/L (3.5-5.1); SODIUM LEVEL 143 MEQ/L (136-145); TOTAL PROTEIN 6.7 GM/DL (6.4-8.2)
== END ==
LOC: SKLAB7 11:24
PROVIDERS: ATTEND Internal Medicine
DX: D64.9 Anemia, unspecified (principal); E87.6 Hypokalemia

== ENCOUNTER → 2021-06-18 | Outpatient (REF) | payer MEDICARE | LOC: SKLAB7 07:00 | PROVIDERS: ATTEND Internal Medicine | DX: Z87.09 Personal history of other diseases of the respiratory system (principal) ==

== ENCOUNTER → 2021-08-20 | Outpatient (REF) | payer MEDICARE | LOC: SKLAB7 08:23 | PROVIDERS: ATTEND Nurse Practitioner | DX: R05.8 Other specified cough (principal) ==

== ENCOUNTER → 2021-08-27 | Outpatient (REF) | payer MEDICARE ==
[2021-08-27 15:34] LABS: APPEARANCE, URINE HAZY (CLEAR); BACTERIA, URINE AUTO 1+ (NEGATIVE); BILIRUBIN, URINE AUTO NEGATIVE (NEGATIVE); BLOOD, URINE BLOOD NEGATIVE (NEGATIVE); COLOR, URINE STRAW (YELLOW); GLUCOSE, URINE (UA) AUTO NEGATIVE (NEGATIVE); KETONE, URINE AUTO NEGATIVE (NEGATIVE); LEUKOCYTE ESTERASE, URINE AUTO 3+ (NEGATIVE); MUCUS, URINE SMALL (NEGATIVE); NITRITE, URINE AUTO NEGATIVE (NEGATIVE); PROTEIN, URINE AUTO 1+ mg/dL (NEGATIVE); RBC, URINE AUTO 4 /HPF (0-3); SPECIFIC GRAVITY URINE AUTO 1.005 (1.002-1.035); SQUAMOUS EPITHELIAL CELL UR AU 0 /HPF (0-6); UROBILINOGEN, URINE AUTO 0.2 mg/dL (0.0-2.0); WBC, URINE AUTO 86 /HPF (0-3)
== END ==
LOC: SKLAB7 14:57
PROVIDERS: ATTEND Internal Medicine
DX: R50.9 Fever, unspecified (principal); R00.0 Tachycardia, unspecified

== ENCOUNTER → 2021-08-28 | Outpatient (REF) | payer MEDICARE ==
[2021-08-28 08:05] LABS: HEMATOCRIT 39.4 % (42.0-52.0); HEMOGLOBIN 12.8 g/dl (13.5-17.5); MEAN CORPUSCULAR HEMOGLOBIN 28.2 pg (27.0-33.0); MEAN CORPUSCULAR HGB CONC 32.5 g/dl (32.0-36.5); MEAN CORPUSCULAR VOLUME 86.8 fl (80.0-96.0); PLATELET COUNT, AUTOMATED 248 10^3/uL (150-450); RED BLOOD COUNT 4.54 10^6/uL (4.30-6.10); WHITE BLOOD COUNT 12.5 10^3/uL (4.0-10.0)
[2021-08-28 08:27] LABS: CALCIUM LEVEL 9.2 MG/DL (8.8-10.2); CREATININE FOR GFR 1.56 MG/DL (0.70-1.30); GLOMERULAR FILTRATION RATE 46.7 (>42); POTASSIUM SERUM 4.3 MEQ/L (3.5-5.1)
== END ==
LOC: SKLAB7 07:00
PROVIDERS: ATTEND Nurse Practitioner
DX: E86.0 Dehydration (principal)

== ENCOUNTER → 2021-08-29 | Outpatient (REF) | payer MEDICARE ==
[2021-08-29 08:29] LABS: HEMATOCRIT 37.9 % (42.0-52.0); HEMOGLOBIN 12.4 g/dl (13.5-17.5); MEAN CORPUSCULAR HEMOGLOBIN 28.9 pg (27.0-33.0); MEAN CORPUSCULAR HGB CONC 32.7 g/dl (32.0-36.5); MEAN CORPUSCULAR VOLUME 88.3 fl (80.0-96.0); PLATELET COUNT, AUTOMATED 229 10^3/uL (150-450); RED BLOOD COUNT 4.29 10^6/uL (4.30-6.10); WHITE BLOOD COUNT 8.2 10^3/uL (4.0-10.0)
[2021-08-29 08:42] LABS: BLOOD UREA NITROGEN 30 MG/DL (7-18); CALCIUM LEVEL 9.4 MG/DL (8.8-10.2); CARBON DIOXIDE LEVEL 27 MEQ/L (21-32); CHLORIDE LEVEL 116 MEQ/L (98-107); CREATININE FOR GFR 1.15 MG/DL (0.70-1.30); GLOMERULAR FILTRATION RATE > 60.0 (>42); GLUCOSE, FASTING 129 MG/DL (70-100); POTASSIUM SERUM 3.6 MEQ/L (3.5-5.1); SODIUM LEVEL 149 MEQ/L (136-145)
== END ==
LOC: SKLAB7 07:00
PROVIDERS: ATTEND Internal Medicine
DX: N39.0 Urinary tract infection, site not specified (principal)

== ENCOUNTER → 2021-09-01 | Outpatient (REF) | payer MEDICARE ==
[2021-09-01 10:01] LABS: HEMOGLOBIN 11.8 g/dl (13.5-17.5); MEAN CORPUSCULAR HEMOGLOBIN 28.1 pg (27.0-33.0); MEAN CORPUSCULAR HGB CONC 31.9 g/dl (32.0-36.5); MEAN CORPUSCULAR VOLUME 88.1 fl (80.0-96.0); PLATELET COUNT, AUTOMATED 261 10^3/uL (150-450); WHITE BLOOD COUNT 6.4 10^3/uL (4.0-10.0)
[2021-09-01 11:37] LABS: BLOOD UREA NITROGEN 20 MG/DL (7-18); CALCIUM LEVEL 8.9 MG/DL (8.8-10.2); CARBON DIOXIDE LEVEL 22 MEQ/L (21-32); CHLORIDE LEVEL 119 MEQ/L (98-107); CREATININE FOR GFR 1.01 MG/DL (0.70-1.30); GLOMERULAR FILTRATION RATE > 60.0 (>42); GLUCOSE, FASTING 164 MG/DL (70-100); POTASSIUM SERUM 4.2 MEQ/L (3.5-5.1); SODIUM LEVEL 148 MEQ/L (136-145)
== END ==
LOC: SKLAB7 07:19
PROVIDERS: ATTEND Internal Medicine
DX: E86.0 Dehydration (principal)

== ENCOUNTER → 2021-09-02 | Outpatient (REF) | payer MEDICARE | LOC: SKLAB7 10:54 | PROVIDERS: ATTEND Nurse Practitioner | DX: Z79.899 Other long term (current) drug therapy (principal) ==

== ENCOUNTER → 2021-09-14 | Outpatient (REF) | payer MEDICARE ==
[2021-09-14 07:46] LABS: HEMATOCRIT 40.5 % (42.0-52.0); HEMOGLOBIN 12.8 g/dl (13.5-17.5); MEAN CORPUSCULAR HEMOGLOBIN 27.8 pg (27.0-33.0); MEAN CORPUSCULAR HGB CONC 31.6 g/dl (32.0-36.5); PLATELET COUNT, AUTOMATED 231 10^3/uL (150-450)
[2021-09-14 08:13] LABS: BLOOD UREA NITROGEN 22 MG/DL (7-18); CALCIUM LEVEL 9.9 MG/DL (8.8-10.2); CARBON DIOXIDE LEVEL 26 MEQ/L (21-32); CHLORIDE LEVEL 122 MEQ/L (98-107); CREATININE FOR GFR 1.12 MG/DL (0.70-1.30); GLOMERULAR FILTRATION RATE > 60.0 (>42); GLUCOSE, FASTING 115 MG/DL (70-100); SODIUM LEVEL 154 MEQ/L (136-145)
== END ==
LOC: SKLAB7 07:00
PROVIDERS: ATTEND Internal Medicine
DX: E87.1 Hypo-osmolality and hyponatremia (principal)